=== PATIENT | male | born 1980 | race Two or more races ===

== ENCOUNTER 2020-04-14 15:12 | Emergency (ER) | payer OTHER, SELFPAY ==
[2020-04-14 15:27] VITALS: BP 119/93; PULSE 99; RESP 18; TEMP 36.2; O2SAT 97; BMI 26.6
[2020-04-14 15:32] VITALS: BP 119/93; PULSE 99; RESP 18; TEMP 36.2; O2SAT 97
--- NOTE | 2020-04-14 16:22 | ED.PSYCH ---
HPI - Psych General Chief Complaint: Psychiatric Symptoms Stated Complaint: crisis Time Seen by Provider: 04/14/20 16:18 Source: patient Mode of arrival: EMS Limitations: no limitations History of Present Illness HPI Narrative: patient comes to the emergency room complaining suicidal and homicidal ideation. Patient states that his family is panting drugs in his room. Patient states he used heroin and cocaine yesterday. MD complaint: suicidal ideation and feels depressed Related Data Home Medications Medication Instructions Recorded Confirmed bupropion HCl 300 mg 24 hr tablet, 300 mg PO DAILY 04/06/20 extended release clonidine HCl 0.1 mg tablet 0.1 mg PO TID 04/06/20 gabapentin 300 mg capsule mg PO 04/06/20 mirtazapine 45 mg tablet 45 mg PO BEDTIME 04/06/20 olanzapine 5 mg tablet 5 mg PO BID 04/06/20 Allergies Allergy/AdvReac Type Severity Reaction Status Date / Time codeine [Codeine] Allergy Unknown N/A Unverified 03/10/20 16:08 Review of Systems Review of Systems: Constitutional : No Weight loss, No Fever, No Chills, No Night Sweats, No Fatigue, No Malaise ENT/Mouth : No Hearing loss, No Ear Pain, No Nasal Congestion, No Sinus Pain, No Hoarseness, No sore throat, No Rhinorrhea, No Swallowing Difficulty Eyes: No Eye Pain, No Swelling, No Redness, No Foreign Body, No Discharge, No Vision Changes Cardiovascular : No Chest Pain, No SOB, No Dyspnea on Exertion, No Orthopnea, No Edema, No Palpitations Respiratory : No Cough, No Sputum, No Wheezing, No Smoke Exposure, No Dyspnea Gastrointestinal : No Nausea, No Vomiting, No Diarrhea, No Constipation, No abdominal Pain, No Hematochezia, No Melena Genitourinary : no irregular bleeding, No Dysuria, No Urinary Frequency, No Hematuria, No Urinary Incontinence, No Urgency, No Flank Pain, No Urinary Flow Changes, No Hesitancy Musculoskeletal : No joint pain, No Myalgias, No Joint Swelling Skin : No Skin Lesions, No rash Neuro : No Weakness, No Numbness, No Paresthesias, No Loss of Consciousness, No Dizziness, No Headache Psych : N Complaining of worsening depression, suicidal ideation, homicidal ideation, nonspecific but mention his family Heme/Lymph: No Bruising, No Bleeding,No Lymphadenopathy Endocrine : No Polyuria, No Polydipsia, No Temperature Intolerance [facility] Past Medical History Surgical History No pertinent past surgical history Family History Family History Father No problems noted. Mother No problems noted. Social History Social History Alcohol intake: unknown Smoking Status: Current every day smoker Smoked in Last 30 Days: Yes Use of substances other than those prescribed or required for medical reasons: Yes Substance Use Type: Crack/Cocaine and Opiates Substance Use Frequency: Daily Last Used Substance: Hours (ago) Any prior treatment program specific to substance use: No Advance Directives: No Advance Directives Information Provided: No Physical Exam Vital Signs: Vital Signs: Vital Signs Temp Pulse Resp BP Pulse Ox 04/14/20 15:32 97.1 F 99 18 119/93 H 97 04/14/20 15:27 97.1 F 99 18 119/93 H 97 Body Mass Index 26.6 Appearance: Alert. Oriented X3. No acute distress. somnolent but easily arousable, chino answering yes no questions, short sentences Eyes: Pupils equal, round and reactive to light. ENT: Pharynx normal. Neck: Normal inspection. Neck supple. No lymph nodes noted. No crepitus CVS: Normal heart rate and rhythm. Pulses normal. Normal S1 and S2 Respiratory: No respiratory distress. Breath sounds normal. No Wheezing. No rales Abdomen: Soft and nontender. No rigidity. No distention. good BS x4 Skin: Skin warm and dry. Normal skin color. Normal skin turgor. Extremities: No lower extremity edema. No lower extremity edema. No Lacerations. No Rash Neuro: Oriented X 3. No motor deficit. No sensory deficit. Moving all extermities. No slurred speech. Course Course Course Narrative: patient has been refusing to give any urine yet, UA pending. Sign-out given to Dr. Davis [facility] - Psych Restraints Face to Face Assessment: Face to Face Assessment: Current Situation: After assessment of the patient, a review of the pertinent medical record and a discussion with nursing staff, I feel the patient requires a restrain intervention. Reaction To: [] Medical Condition: [] Behavioral State: [] Continued Need: [] Discharge Plan Discharge Clinical Impression: Suicidal ideation, Active substance abuse Prescriptions: No Action gabapentin 300 mg capsule PO RF: 0 bupropion HCl 300 mg tablet extended release 24 hr 300 mg PO DAILY RF: 0 mirtazapine 45 mg tablet 45 mg PO BEDTIME RF: 0 olanzapine 5 mg tablet 5 mg PO BID RF: 0 clonidine HCl 0.1 mg tablet 0.1 mg PO TID RF: 0
--- NOTE | 2020-04-14 17:03 | PC.NURSE ---
HAZEL faxed and called, verified with Francesca
--- NOTE | 2020-04-14 19:17 | PC.NURSE ---
Report received. PT is resting in bed. Calm and cooperative. No other complaints.
[2020-04-14] MEDS: LORazepam 1 MG TABLET 2 MG PO (20:22)
[2020-04-14 21:52] VITALS: BP 131/86; PULSE 87; RESP 16; TEMP 36.1; O2SAT 95
--- NOTE | 2020-04-14 22:01 | PC.NURSE ---
PT is sleeping in bed. Breathing is even and unlabored. Received 2 mg of Ativan PO for agitation at 2021.
--- NOTE | 2020-04-14 23:51 | PC.NURSE ---
PT is resting in bed. Calm and cooperative. No other complaints.
[2020-04-14 23:57] VITALS: RESP 17
--- NOTE | 2020-04-15 01:47 | PC.NURSE ---
PT refused to speak with N.
[2020-04-15 06:46] VITALS: BP 132/83; PULSE 77; RESP 18; TEMP 36.7; O2SAT 97
--- NOTE | 2020-04-15 07:03 | PC.NURSE ---
pt awake, asking this rn for urine cup. awaiting bhn reeval this morning, refused to speak w clinician at 0200 this morning.
[2020-04-15 07:27] LABS: Glucose Urine UA NEG (NEG); Leukocyte Esterase Urine NEG (NEG); Nitrite Urine NEG (NEG); Urine Blood NEG (NEG); Urine Ketones 5 MG/DL (NEG); Urine Protein NEG (NEG-TRACE)
[2020-04-15 07:28] LABS: Appearance Urine HAZY; Color Urine YELLOW
[2020-04-15 07:55] LABS: Amphetamine Screen Urine Not Detected (Not Detect); Barbiturates, Urine Not Detected (Not Detect); Benzodiazepines Screen Urine Not Detected (Not Detect); Cannabinoid Screen Urine Not Detected (Not Detect); Cocaine Screen Urine POSITIVE (Not Detect); Opiate Screen Urine POSITIVE (Not Detect); Phencyclidine Screen Urine Not Detected (Not Detect)
--- NOTE | 2020-04-15 08:56 | PC.NURSE ---
pt hardly cooperative for vitals, minimally repositioning to accomodate bp cuff. large amount of trash removed from floor of pt room, pt educated about risk for ants in bh pod from littered food on floor
[2020-04-15 09:11] VITALS: BP 124/75; PULSE 79; RESP 16; TEMP 37.1
--- NOTE | 2020-04-15 10:11 | MHC.CARE ---
Dionisio declined SI/HI plan, stated I just want to rest this is why I called 911. Dionisio refused to continue with assessment and requested to let him sleep. He is provided with information regards were he is able to stay overnight since he is homeless.
--- NOTE | 2020-04-15 11:23 | PC.NURSE ---
pt screaming at staff, refusing to be discharged, calling bhn and this rn fucking liars, i never spoke to a doctor, im not leaving . removed by security, offered dc paperwork and slapping papers out of this rn hands.
== END 2020-04-15 11:04 | disposition left against medical advice (07) ==
PROVIDERS: Emergency Provider Emergency Medicine
DX: F33.1 Major depressive disorder, recurrent, moderate (principal); R45.851 Suicidal ideations; R45.850 Homicidal ideations; F17.200 Nicotine dependence, unspecified, uncomplicated; F11.90 Opioid use, unspecified, uncomplicated; F14.90 Cocaine use, unspecified, uncomplicated; Z71.6 Tobacco abuse counseling; Z79.899 Other long term (current) drug therapy
CPT/HCPCS: 80307; 81003; 99285

== ENCOUNTER 2020-04-15 11:41 | Emergency (ER) | payer OTHER, SELFPAY ==
[2020-04-15 11:49] VITALS: BP 111/70; PULSE 88; RESP 18; TEMP 36.8; O2SAT 97; BMI 35.6
--- NOTE | 2020-04-15 12:52 | ED.PSYCH ---
HPI - Psych General Chief Complaint: Psychiatric Symptoms Stated Complaint: CRISIS Time Seen by Provider: 04/15/20 12:51 Source: patient Mode of arrival: ambulatory Limitations: no limitations History of Present Illness HPI Narrative: Dionisio Jean is a 39-year-old male who speaks full initial he is a known to this facility through his past visits here for psychiatric reasons he has a history of psychotic depression, chronic opiate dependence on methadone and continues to use heroin/cocaine who also reports he has history of anxiety, PTSD and from the review chart he has had admission here and May 13 as well as prior to that in 03/20/2019 for depression/suicidal ideation who was seen here earlier in the day for suicidal ideations subsequently evaluated crisis team and cleared for discharge he returns complaining of feeling suicidal and depressed states he has a lot of family stressors and they are doing him dirty he does not express any specific plan related to his suicidality. He states that he last use heroin and cocaine couple of days ago. He has no medical complaints this time. States he feels suicidal. MD complaint: suicidal ideation and feels depressed Onset (ago): day(s) Duration: constant History of same: Yes Relieving factors: none Exacerbating factors: drug use and other ( Family stressors) Associated psychiatric symptoms: depression and suicidal ideation Associated symptoms: denies other symptoms If self harm: admits thoughts of self harm Details of plan: No plan expressed Related Data Home Medications Medication Instructions Recorded Confirmed bupropion HCl 300 mg 24 hr tablet, 300 mg PO DAILY 04/06/20 extended release clonidine HCl 0.1 mg tablet 0.1 mg PO TID 04/06/20 gabapentin 300 mg capsule mg PO 04/06/20 mirtazapine 45 mg tablet 45 mg PO BEDTIME 04/06/20 olanzapine 5 mg tablet 5 mg PO BID 04/06/20 methadone 40 mg PO DAILY 04/15/20 04/15/20 Allergies Allergy/AdvReac Type Severity Reaction Status Date / Time codeine [Codeine] Allergy Unknown N/A Unverified 03/10/20 16:08 Review of Systems Review of Systems: Constitutional: No Weight loss, No Fever, No Chills, No Night Sweats, No Fatigue, No Malaise ENT/Mouth: No Hearing loss, No Ear Pain, No Nasal Congestion, No Sinus Pain, No Hoarseness, No sore throat, No Rhinorrhea, No Swallowing Difficulty Eyes: No Eye Pain, No Swelling, No Redness, No Foreign Body, No Discharge, No Vision Changes Cardiovascular: No Chest Pain, No SOB, No Dyspnea on Exertion, No Orthopnea, No Edema, No Palpitations Respiratory: No Cough, No Sputum, No Wheezing, No Dyspnea Gastrointestinal: No Nausea, No Vomiting, No Diarrhea, No Constipation, No abdominal Pain, No Hematochezia, No Melena Genitourinary: no irregular bleeding, No Dysuria, No Urinary Frequency, No Hematuria, No Urinary Incontinence, No Urgency, No Flank Pain, No Urinary Flow Changes, No Hesitancy Musculoskeletal: No joint pain, No Myalgias, No Joint Swelling Skin: No Skin Lesions, No rash Neuro: No Weakness, No Numbness, No Paresthesias, No Loss of Consciousness, No Dizziness, No Headache Psych: As noted in HPI Heme/Lymph: No Bruising, No Bleeding,No Lymphadenopathy Endocrine: No Polyuria, No Polydipsia, No Temperature Intolerance Yes all other systems are reviewed and are negative [facility] Past Medical History Attestation statement: The following information was validated with the patient. Medical History (Updated 04/15/20 @ 21:16 by Vasyl Corbett NP) Active substance abuse Depression Surgical History No pertinent past surgical history Family History Family History Father No problems noted. Mother No problems noted. Social History Social History Alcohol intake: current Smoking Status: Smoker, status unknown Use of substances other than those prescribed or required for medical reasons: Yes Substance Use Type: Crack/Cocaine and Opiates Advance Directives: No Advance Directives Information Provided: Yes Physical Exam Vital Signs: Vital Signs: Vital Signs Temp Pulse Resp BP Pulse Ox 04/15/20 20:47 97.5 F 80 18 126/71 100 04/15/20 18:24 97.5 F 82 18 144/76 H 98 04/15/20 17:42 70 16 04/15/20 15:14 70 18 04/15/20 11:49 98.2 F 88 18 111/70 97 Body Mass Index 35.6 reviewed Const: General: cooperative and healthy appearing; No acute distress or intoxicated appearing Nutritional Appearance: average body habitus Orientation/consciousness: patient oriented x3 HENMT: Head: Yes normal to inspection Ears: hearing grossly normal bilaterally Eyes: General: appearance normal, both eyes and all related structures Visual Li: normal visual li by confrontation Neck: Neck: Yes normal visual inspection and No tender Thyroid: Thyroid normal Chest: Chest palpation & inspection: normal inspection of the chest Resp: Effort & Inspection: normal respiratory effort Cardio: Jugular venous distension: no JVD Rate: regular rate Rhythm: regular rhythm GI: Inspection: Yes normal to inspection Percussion: Yes normal to percussion Auscultation: normal bowel sounds : General: Yes no CVA tenderness Back/Spine/Pelvis: Back: no CVA tenderness Skin: General skin exam: no rashes or lesions noted Neuro: General: patient oriented x3 Extrem: General: Yes normal to inspection Course Course Course Narrative: 1250 patient was seen last evening for similar presentation with depression / suicidal ideation. Had AU tox that was positive for cocaine and opiate which he is misusing several days ago. No signs or symptoms of intoxication / withdrawal. Offers no medical complaints. I have already consulted care team who will come down to evaluate the patient. Reevaluation(s) Reevaluation #1: 1305 Evaluate the care team at this time given his history and now express suicidality and a plan to the care team of running into traffic recommendation for inpatient level care. Bed search initiated. This time we will go ahead and get medical screening labs and bed search initiated. Section 12 is signed. Time: 21:16 Reevaluation #2: case discussed with shiv and Anita davidson sign out pending bed placement. Has been resting comfortably. No acute distress. Did eat dinner. Section 12/bed search in progress MDM - Psych Restraints Face to Face Assessment: Face to Face Assessment: Current Situation: After assessment of the patient, a review of the pertinent medical record and a discussion with nursing staff, I feel the patient requires a restrain intervention. Reaction To: [] Medical Condition: [] Behavioral State: [] Continued Need: [] Lab Data Result diagrams: 04/15/20 13:45 04/15/20 13:45 Labs: Lab Results 04/15/20 04/15/20 Range/Units 13:45 13:45 WBC 4.4 L (4.8-10.8) X10*3/uL RBC 4.22 L (4.60-5.80) X10*6/uL Hgb 12.1 L (14.0-18.0) g/dl Hct 36.4 L (42-52) % MCV 86.3 (80-98) fL MCH 28.7 (27.0-33.0) pg MCHC 33.2 (31.0-36.0) g/dl RDW 13.2 (11.0-16.0) % Plt Count 153 L (160-400) X10*3/uL MPV 11.3 (9.4-12.4) fL Immature Gran % (Auto) 0.2 (0.0-0.4) % Neut % (Auto) 58.1 (45-73) % Lymph % (Auto) 32.2 (20-40) % Cherry % (Auto) 6.8 (2-11) % Eos % (Auto) 2.5 (0-4) % Baso % (Auto) 0.2 (0-2) % Lymph # (Auto) 1.4 (1.2-4.9) X10*3/uL Cherry # (Auto) 0.3 (0.1-1.2) X10*3/uL Eos # (Auto) 0.1 (0.0-0.4) X10*3/uL Baso # (Auto) 0.0 (0.0-0.2) X10*3/uL Abs Immat Gran (auto) 0.01 (0.00-0.03) X10*3/uL Absolute Neuts (auto) 2.6 (2.0-8.3) X10*3/uL Absolute Nucleated RBC 0.000 (0.0-0.012) X10*3/uL Nucleated RBC % (auto) 0.0 (0.0-0.2) /100WBC Sodium 140 (135-145) mmol/L Potassium 3.9 (3.3-5.1) mmol/l Chloride 104 (96-108) mmol/L Carbon Dioxide 27 (22-29) mmol/L Anion Gap 13 (12-20) BUN 5 L (9-16) mg/dL Creatinine 0.63 (0.5-1.4) mg/dL Estim Creat Clear Calc 217.9 Estimated GFR > 60 Random Glucose 112 (60-115) mg/dL Calcium 8.4 (8.4-10.2) mg/dL Total Bilirubin 0.2 (0.0-1.0) mg/dL AST 34 (5-37) U/L ALT 20 (0-40) U/L Alkaline Phosphatase 94 (39-117) U/L Total Protein 6.7 (6.5-8.0) g/dL Albumin 3.5 (3.5-5.0) g/dL Discharge Plan Discharge Clinical Impression: Active substance abuse Depression Qualifiers: Depression Type: unspecified Qualified Code(s): F32.9 - Major depressive disorder, single episode, unspecified Prescriptions: No Action methadone 10 mg/mL Concentrate 40 mg PO DAILY RF: 0 gabapentin 300 mg capsule PO RF: 0 bupropion HCl 300 mg tablet extended release 24 hr 300 mg PO DAILY RF: 0 mirtazapine 45 mg tablet 45 mg PO BEDTIME RF: 0 olanzapine 5 mg tablet 5 mg PO BID RF: 0 clonidine HCl 0.1 mg tablet 0.1 mg PO TID RF: 0
[2020-04-15 13:50] LABS: MANUAL DIFF FLAG NO
[2020-04-15 13:53] LABS: Basophils Percent Auto 0.2 % (0-2); Eosinophils Absolute Auto 0.1 X10*3/uL (0.0-0.4); Eosinophils Percent Auto 2.5 % (0-4); Hematocrit 36.4 % (42-52); Hemoglobin 12.1 g/dl (14.0-18.0); Imm Gran Abs Auto 0.01 X10*3/uL (0.00-0.03); Imm Gran Pct Auto 0.2 % (0.0-0.4); Lymphocytes Absolute Auto 1.4 X10*3/uL (1.2-4.9); Lymphocytes Percent Auto 32.2 % (20-40); Mean Corpuscular HGB Conc 33.2 g/dl (31.0-36.0); Mean Corpuscular Hemoglobin 28.7 pg (27.0-33.0); Mean Corpuscular Volume 86.3 fL (80-98); Mean Platelet Volume 11.3 fL (9.4-12.4); Monocytes Absolute Auto 0.3 X10*3/uL (0.1-1.2); Monocytes Percent Auto 6.8 % (2-11); Neutrophils Absolute Auto 2.6 X10*3/uL (2.0-8.3); Neutrophils Percent Auto 58.1 % (45-73); Platelet Count 153 X10*3/uL (160-400); Red Blood Count 4.22 X10*6/uL (4.60-5.80); Red Cell Distribution Width 13.2 % (11.0-16.0); White Blood Count 4.4 X10*3/uL (4.8-10.8)
[2020-04-15 14:22] LABS: Alanine Aminotransferase 20 U/L (0-40); Albumin Level 3.5 g/dL (3.5-5.0); Alkaline Phosphatase 94 U/L (39-117); Anion Gap 13 (12-20); Aspartate Amino Transferase 34 U/L (5-37); Bilirubin Total 0.2 mg/dL (0.0-1.0); Blood Urea Nitrogen 5 mg/dL (9-16); Calcium 8.4 mg/dL (8.4-10.2); Carbon Dioxide 27 mmol/L (22-29); Chloride 104 mmol/L (96-108); Creatinine Clr Calc Pharmacy 217.9; Estimated Glomerular Filt Rate > 60; Glucose Random 112 mg/dL (60-115); Potassium 3.9 mmol/l (3.3-5.1); Sodium 140 mmol/L (135-145); Total Protein 6.7 g/dL (6.5-8.0)
[2020-04-15 15:14] VITALS: PULSE 70; RESP 18
--- NOTE | 2020-04-15 15:15 | PC.NURSE ---
PATIENT SEEN BY CARE TEAM HERE. WILL BE BED SEARCH, PATIENT STATES HE WANTS TO WALK INTO TRAFFIC .
[2020-04-15 17:42] VITALS: PULSE 70; RESP 16
--- NOTE | 2020-04-15 17:42 | PC.NURSE ---
methadone dose verified, paper in chart. paper then faxed to pharmacy, who received fax.
--- NOTE | 2020-04-15 18:18 | MHC.CARE ---
CARE Team referred pt to [facility] and [facility] for inpatient psychiatric admission. CARE Team follows up with both of these units, and they no longer have availability. CARE Team will continue bedsearch.
[2020-04-15 18:24] VITALS: BP 144/76; PULSE 82; RESP 18; TEMP 36.4; O2SAT 98
--- NOTE | 2020-04-15 18:47 | PC.NURSE ---
pt report taken from jasmeet villa rn. pt sleeping at this time. pts methadone verieif by lizeth asif. plan for inpatient bed search seen by care team section 12. sitter present at bedside. pt in nad.
--- NOTE | 2020-04-15 20:00 | PC.NURSE ---
pt to bathroom in pod with mom for shower. charisma lawrence aware and all staff in pod aware
[2020-04-15 20:47] VITALS: BP 126/71; PULSE 80; RESP 18; TEMP 36.4; O2SAT 100
--- NOTE | 2020-04-15 21:54 | PC.NURSE ---
[facility]. accepted for tomorrow morning. needs rapid covid 138 bed 2.
--- NOTE | 2020-04-15 22:34 | PC.NURSE ---
PT COVID SWABBED
--- NOTE | 2020-04-15 22:56 | MHC.CARE ---
CARE team completed state-wide bedsearch. Bedsearch was exhausted for this evening. CARE team received call from [facility] [phone] with acceptance for tomorrow morning. Patient will be going to room 138-[address] Gurrola. Acceptance is pending negative COVID results which CARE team will fax to [facility] at [phone] when available.
--- NOTE | 2020-04-15 23:00 | MHC.CARE ---
The following contains insurance information: CARE team obtained authorization from patient's insurance company live by phone from [employer]. Auth# [id number] for 5 days starting 04/16/2020 with LCD 04/20/2020.
--- NOTE | 2020-04-15 23:31 | PC.NURSE ---
Patient resting comfortably at this time aware of plan of care to be transferred to inpatient in am.
[2020-04-15 23:47] LABS: SARS COV2 PCR INHOUSE NEGATIVE (Negative)
--- NOTE | 2020-04-16 01:21 | MHC.CARE ---
CARE Team sends covid results and authorization info to [facility].
[2020-04-16 01:45] VITALS: BP 116/63; PULSE 72; RESP 18; TEMP 36.3; O2SAT 98
[2020-04-16 04:11] VITALS: BP 118/73; PULSE 73; RESP 18; TEMP 36.9; O2SAT 95
[2020-04-16 05:50] VITALS: BP 124/75; PULSE 79; RESP 16; TEMP 36.6; O2SAT 99
--- NOTE | 2020-04-16 06:14 | PC.NURSE ---
[facility] [phone] to give nurse to nurse at 11am and to discuss discharge time.
--- NOTE | 2020-04-16 06:44 | PC.NURSE ---
patient rested comfortably throughtout night aware of plan of care to be transferred to psych at [facility] [phone]
[2020-04-16 11:09] VITALS: BP 122/76; PULSE 88; O2SAT 98
== END 2020-04-16 15:12 ==
PROVIDERS: Nurse Practitioner Family; Nurse Practitioner Primary Care; Emergency Provider Emergency Medicine
DX: F32.9 Major depressive disorder, single episode, unspecified (principal); R45.851 Suicidal ideations; F11.20 Opioid dependence, uncomplicated; Z20.828 Contact with and (suspected) exposure to other viral communicable diseases; F14.90 Cocaine use, unspecified, uncomplicated; Z79.899 Other long term (current) drug therapy
CPT/HCPCS: 36415; 80053; 85025; 87635; 99285

== ENCOUNTER 2020-06-14 10:15 | Outpatient (REF) | payer OTHER, SELFPAY ==
[2020-06-14 12:13] LABS: Alanine Aminotransferase 17 U/L (0-40); Albumin Level 4.1 g/dL (3.5-5.0); Alkaline Phosphatase 68 U/L (39-117); Anion Gap 10 (12-20); Aspartate Amino Transferase 15 U/L (5-37); Bilirubin Total 0.2 mg/dL (0.0-1.0); Blood Urea Nitrogen 12 mg/dL (9-16); Calcium 8.9 mg/dL (8.4-10.2); Carbon Dioxide 33 mmol/L (22-29); Chloride 102 mmol/L (96-108); Cholesterol 231 mg/dL; Estimated Glomerular Filt Rate > 60; Glucose Fasting 88 mg/dL (60-99); HDL Cholesterol 45 mg/dL; LDL Cholesterol Calculated 148 mg/dl; Potassium 4.4 mmol/l (3.3-5.1); Sodium 141 mmol/L (135-145); Total Protein 7.6 g/dL (6.5-8.0); Triglycerides 191 mg/dL
[2020-06-14 12:24] LABS: Estimated Average Glucose 111 mg/dL; Hemoglobin A1c % 5.5 %
[2020-06-14 12:36] LABS: TSH reflex Free T4 2.01 mIU/mL (0.32-4.0)
[2020-06-15 07:46] LABS: Syphilis Screen Nonreactive (Nonreactive)
[2020-06-15 09:20] LABS: HBsAGNum1 0.19 S/CO (0.00-0.99); Hepatitis B Surface Antigen Negative (Negative); ~HepC Num1 14.92 S/CO (0.00-0.79); ~Hepatitis C Antibody Reactive (Nonreactive)
[2020-06-15 09:32] LABS: HBS Num1 > 1000.00 mIU/mL (0-7.99); HBc Num1 0.37 S/CO (0.00-0.79); HIV AB/AG Nonreactive (Nonreactive); Hepatitis B Core Antibody Nonreactive (Nonreactive); ~Hepatitis B Surface Antibody REACTIVE (Nonreactive)
== END 2020-06-14 10:16 | disposition home or self-care (01) ==
LOC: HO.LAB 10:15
PROVIDERS: PCP Physician Assistant; Visit Provider Physician Assistant
DX: Z13.1 Encounter for screening for diabetes mellitus (principal); Z11.3 Encounter for screening for infections with a predominantly sexual mode of transmission; E66.09 Other obesity due to excess calories; Z68.38 Body mass index [BMI] 38.0-38.9, adult; Z87.898 Personal history of other specified conditions
CPT/HCPCS: 80053; 80061; 83036; 84443; 86704; 86706; 86780; 86803; 87340; 87389

== ENCOUNTER 2020-08-18 12:47 | Emergency (ER) | payer OTHER, SELFPAY ==
--- NOTE | ~2020-08-18 | XR_ITS ---
EXAMINATION: XR CHEST CLINICAL INFORMATION: Possible aspiration COMPARISON: None TECHNIQUE: Portable upright AP view of the chest was obtained. FINDINGS: The lungs are clear and there is no airspace consolidation or groundglass opacity or effusion. No pneumothorax or pleural reaction. The heart is normal in size. The vascularity is normal. The hilar and mediastinal contours are normal. There is hardware bridging old left midclavicular fracture. There is a healed left posterior fourth rib fracture. No acute bony abnormality. XR/XR chest 1V IMPRESSION: Unremarkable examination.
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
[2020-08-18 13:00] VITALS: BP 141/84; PULSE 96; RESP 18; TEMP 36.2; O2SAT 95; BMI 31.1
[2020-08-18 14:02] LABS: MANUAL DIFF FLAG NO
[2020-08-18 14:05] LABS: Basophils Percent Auto 0.2 % (0-2); Eosinophils Absolute Auto 0.1 X10*3/uL (0.0-0.4); Eosinophils Percent Auto 1.5 % (0-4); Hemoglobin 13.7 g/dl (14.0-18.0); Imm Gran Abs Auto 0.01 X10*3/uL (0.00-0.03); Imm Gran Pct Auto 0.2 % (0.0-0.4); Lymphocytes Absolute Auto 1.3 X10*3/uL (1.2-4.9); Lymphocytes Percent Auto 25.7 % (20-40); Mean Corpuscular HGB Conc 32.6 g/dl (31.0-36.0); Mean Corpuscular Hemoglobin 28.9 pg (27.0-33.0); Mean Corpuscular Volume 88.6 fL (80-98); Mean Platelet Volume 10.4 fL (9.4-12.4); Monocytes Absolute Auto 0.4 X10*3/uL (0.1-1.2); Monocytes Percent Auto 7.3 % (2-11); Neutrophils Absolute Auto 3.4 X10*3/uL (2.0-8.3); Neutrophils Percent Auto 65.1 % (45-73); Platelet Count 184 X10*3/uL (160-400); Red Blood Count 4.74 X10*6/uL (4.60-5.80); Red Cell Distribution Width 15.9 % (11.0-16.0); White Blood Count 5.2 X10*3/uL (4.8-10.8)
[2020-08-18 14:18] LABS: COVID-19 Test Negative (Negative)
[2020-08-18 14:34] LABS: Ethanol < 10 mg/dL
[2020-08-18 14:38] LABS: Alanine Aminotransferase 164 U/L (0-40); Albumin Level 4.2 g/dL (3.5-5.0); Alkaline Phosphatase 82 U/L (39-117); Anion Gap 14 (12-20); Aspartate Amino Transferase 99 U/L (5-37); Bilirubin Direct 0.2 mg/dL (0.0-0.5); Bilirubin Total 0.6 mg/dL (0.0-1.0); Blood Urea Nitrogen 14 mg/dL (9-16); Calcium 9.2 mg/dL (8.4-10.2); Carbon Dioxide 32 mmol/L (22-29); Chloride 100 mmol/L (96-108); Creatinine Clr Calc Pharmacy 160.3; Estimated Glomerular Filt Rate > 60; Glucose Random 111 mg/dL (60-115); Magnesium 2.2 mg/dL (1.6-2.6); Potassium 3.7 mmol/L (3.3-5.1); Sodium 142 mmol/L (135-145); Total Protein 7.5 g/dL (6.5-8.0)
[2020-08-18 16:24] VITALS: BP 149/81; PULSE 103; RESP 18; TEMP 36.1; O2SAT 97
--- NOTE | 2020-08-18 17:30 | PC.NURSE ---
Called and faxed to N
[2020-08-18 18:07] VITALS: BP 157/92; PULSE 98; RESP 18; TEMP 36.6; O2SAT 98
--- NOTE | 2020-08-18 19:54 | PC.NURSE ---
SLEEPING ON STRETCHER. BREATHING EVEN, NON-LABORED. NO APPARENT DISTRESS. SITTER MAINTAINED FOR SAFETY.
[2020-08-18 21:05] VITALS: BP 151/98; PULSE 93; RESP 18; TEMP 36.6; O2SAT 98
[2020-08-18 22:14] VITALS: BP 122/62; PULSE 82; RESP 15; TEMP 36.4; O2SAT 92
[2020-08-18 22:59] LABS: Glucose Urine UA NEG (NEG); Leukocyte Esterase Urine NEG (NEG); Nitrite Urine NEG (NEG); Urine Blood NEG (NEG); Urine Ketones NEG (NEG); Urine Protein TRACE MG/DL (NEG-TRACE)
[2020-08-18 23:08] LABS: Appearance Urine CLEAR; Color Urine DARK YELLOW
[2020-08-18 23:20] LABS: Amphetamine Screen Urine Not Detected (Not Detect); Barbiturates, Urine Not Detected (Not Detect); Benzodiazepines Screen Urine Not Detected (Not Detect); Cannabinoid Screen Urine Not Detected (Not Detect); Cocaine Screen Urine POSITIVE (Not Detect); Opiate Screen Urine POSITIVE (Not Detect); Phencyclidine Screen Urine Not Detected (Not Detect)
[2020-08-18] MEDS: Mirtazapine 15 MG TABLET 45 MG PO (23:27)
[2020-08-18] MEDS: OLANZapine 5 MG TABLET PO (23:27)
[2020-08-18 23:28] VITALS: BP 122/62; PULSE 82
[2020-08-18] MEDS: buPROPion HCl XL 300 MG TAB.ER.24H PO (23:28)
[2020-08-18] MEDS: cloNIDine HCL 0.1 MG TABLET PO (23:28)
[2020-08-18] MEDS: QUEtiapine Fumarate 50 MG TABLET PO (23:28)
[2020-08-18] MEDS: Gabapentin 400 MG CAPSULE PO (23:28)
[2020-08-19] VITALS (8 sets, daily range): BP systolic 117–142; BP diastolic 56–84; PULSE 72–98; RESP 16–18; TEMP 36.6; O2SAT 93–97
--- NOTE | 2020-08-19 07:48 | PC.NURSE ---
report taken from ese lawrence pt sleeping in stretcher, awaiting to be seen by n. alert to verbal stimuli, sitting up eating breakfast, ambulated to bathroom w steady gait. wcsavannah.
[2020-08-19] MEDS: OLANZapine 5 MG TABLET PO (10:11)
[2020-08-19] MEDS: Gabapentin 400 MG CAPSULE PO ×2 (10:11→14:52)
[2020-08-19] MEDS: cloNIDine HCL 0.1 MG TABLET PO ×2 (10:11→14:52)
[2020-08-19] MEDS: buPROPion HCl XL 300 MG TAB.ER.24H PO (10:12)
--- NOTE | 2020-08-19 10:38 | PC.NURSE ---
this rn spoke jennifer harry at [facility], methadone dose confirmed. faxed to pharmacy.
--- NOTE | 2020-08-19 23:02 | PC.NURSE ---
Patient continues to sleep at this time. Respirations even/unlabored, sitter remains. This RN did not wake patient to medicate. Plan to medicate when patient wakes up.
[2020-08-20] VITALS (12 sets, daily range): BP systolic 114–128; BP diastolic 57–79; PULSE 76–86; RESP 14–18; TEMP 35.6–36.6; O2SAT 94–100
[2020-08-20] MEDS: Mirtazapine 15 MG TABLET 45 MG PO ×2 (01:41→20:58)
[2020-08-20] MEDS: Gabapentin 400 MG CAPSULE PO ×4 (01:41→20:58)
[2020-08-20] MEDS: cloNIDine HCL 0.1 MG TABLET PO ×4 (01:41→20:55)
[2020-08-20] MEDS: OLANZapine 5 MG TABLET PO ×3 (01:41→20:58)
[2020-08-20] MEDS: QUEtiapine Fumarate 50 MG TABLET PO ×2 (01:42→20:58)
--- NOTE | 2020-08-20 01:42 | PC.NURSE ---
Patient woke up, is calm/cooperative/pleasant at this time. Offered and accepted medications. Medicated with medications that are usually given at 21:00. Pt refused hospital socks, but given warm blanket. Sitter remains present.
[2020-08-20] MEDS: buPROPion HCl XL 300 MG TAB.ER.24H PO (09:55)
--- NOTE | 2020-08-20 12:52 | PC.NURSE ---
pt has been resting calmly on kulkarni bed since this RN arrival at 11am. sitter has been nearby. lunch now at bedside. pt requesting am methadone and pharmacy aware of need to bring it. bedsearch continues.
--- NOTE | 2020-08-20 16:47 | PC.NURSE ---
moved to a hospital bed but remains in hallway
--- NOTE | 2020-08-20 19:29 | MHC.CARE ---
Bedsearch note: No inpatient psychiatric beds available today. Assessment faxed to [facility] to review for possible admission on Saturday or Saturday. ph: [phone] fax: [phone] MSU completed, pt continues to meet LOC for inpt psychiatric placement.
--- NOTE | 2020-08-20 21:02 | PC.NURSE ---
Pt sleeping, wakes easily to voice. Pt medicated with 2100 medications, denies pain/discomfort. Pt refusing to wear a mask while in the kulkarni at this time. Pt states Even while I am sleeping? I'll suffocate!! VSS. Sitter at bedside.
[2020-08-21] VITALS (10 sets, daily range): BP systolic 122–135; BP diastolic 62–82; PULSE 80–83; RESP 16–18; TEMP 36–36.5; O2SAT 95–96
--- NOTE | 2020-08-21 07:25 | PC.NURSE ---
REPORT TAKEN FROM GISEL SCHAFFER. PATIENT RESTING IN BED. ATE BREAKFAST. PATIENT CALM. WAITING FOR PLACEMENT. STAFF ABLE TO VIEW PATIENT AT ALL TIMES.
[2020-08-21] MEDS: cloNIDine HCL 0.1 MG TABLET PO ×3 (09:13→22:00)
[2020-08-21] MEDS: Gabapentin 400 MG CAPSULE PO ×3 (09:13→22:00)
[2020-08-21] MEDS: buPROPion HCl XL 300 MG TAB.ER.24H PO (09:13)
[2020-08-21] MEDS: OLANZapine 5 MG TABLET PO ×2 (09:13→22:00)
--- NOTE | 2020-08-21 12:31 | MHC.CARE ---
CARE Team spoke with [facility] marie called and needed to fill out one documents needed for clinical, spoke with Faisal from [facility].
[2020-08-21] MEDS: Mirtazapine 15 MG TABLET 45 MG PO (22:00)
[2020-08-21] MEDS: QUEtiapine Fumarate 50 MG TABLET PO (22:00)
[2020-08-22 07:49] VITALS: BP 112/66; PULSE 83; RESP 18; O2SAT 95
--- NOTE | 2020-08-22 07:50 | PC.NURSE ---
Pt is alert, rr even, speaks in full sentences, skis pwdi, and he is in nad. States he is still having si, and that if given the opportunity he would jump off a bridge.
[2020-08-22] MEDS: buPROPion HCl XL 300 MG TAB.ER.24H PO (08:12)
[2020-08-22] MEDS: cloNIDine HCL 0.1 MG TABLET PO ×3 (08:12→21:26)
[2020-08-22] MEDS: Gabapentin 400 MG CAPSULE PO ×3 (08:12→21:25)
[2020-08-22] MEDS: OLANZapine 5 MG TABLET PO ×2 (08:12→21:24)
--- NOTE | 2020-08-22 09:49 | PC.NURSE ---
Report received. PT ambulated to pod with steady gait, pt denies complaints.
--- NOTE | 2020-08-22 09:50 | PC.NURSE ---
Pt transported to the behavioral pod. Report given to KARIME Proctor.
[2020-08-22 15:15] VITALS: BP 128/82; PULSE 85; RESP 16; TEMP 36.9; O2SAT 95
[2020-08-22 15:26] VITALS: BP 128/82; PULSE 85
[2020-08-22 16:48] VITALS: BP 117/63; PULSE 79; RESP 16; TEMP 37.1; O2SAT 95
--- NOTE | 2020-08-22 19:16 | PC.NURSE ---
Report received. PT is sleeping in the room. Respirations are even and unlabored. PT is inpatient bed search.
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
[2020-08-22] MEDS: Mirtazapine 15 MG TABLET 45 MG PO (21:25)
[2020-08-22 21:26] VITALS: BP 121/73; PULSE 82
[2020-08-22] MEDS: QUEtiapine Fumarate 50 MG TABLET PO (21:26)
--- NOTE | 2020-08-22 22:14 | MHC.CARE ---
Spoke with Giselle from [facility] who authorized Inpatient level of care. She is requesting we f/u with facilities to determine what the barriers are to placement considering there are pt?s that had been boarding prior to him and have been placed and pt has been boarding since . She requested we call tomorrow with that information and start looking into lower levels of care ?because he is taking his medications and needs tx and is not acute for facilities to not take him?.
[2020-08-23] VITALS (8 sets, daily range): BP systolic 101–136; BP diastolic 50–76; PULSE 79–90; RESP 16–18; TEMP 36.2–36.9; O2SAT 95–97
--- NOTE | 2020-08-23 01:30 | PC.NURSE ---
Addendum entered by Hitesh Mackey 08/23/20 14:10: time entered was incorrect, nurse to nurse completed at 1330 Original Note: Nurse to nurse completed with Kelly from [facility] . she said she would follow up with their intake department and call us back.
[2020-08-23] MEDS: Magnesium Hydrox/Alum Hydrox 30 ML ORAL.SUSP PO (05:30)
--- NOTE | 2020-08-23 07:05 | PC.NURSE ---
Report received. PT currently sleeping, respirations even and unlabored, in no apparent distress. PT is inpatient bedsearch.
[2020-08-23] MEDS: Gabapentin 400 MG CAPSULE PO ×3 (09:34→21:02)
[2020-08-23] MEDS: OLANZapine 5 MG TABLET PO ×2 (09:34→21:05)
[2020-08-23] MEDS: cloNIDine HCL 0.1 MG TABLET PO ×3 (09:34→21:05)
[2020-08-23] MEDS: buPROPion HCl XL 300 MG TAB.ER.24H PO (09:34)
[2020-08-23 14:22] LABS: COVID-19 Test Negative (Negative); IDNOW Serial# 9DD0AD1C
--- NOTE | 2020-08-23 15:07 | MHC.CARE ---
Patient has been accepted at [facility] in [place]. Insurance authorization in progress.
--- NOTE | 2020-08-23 17:36 | MHC.CARE ---
Addendum entered by Rebeka Ayala LCSW 08/23/20 18:44: Departure and admission time delayed due to ambulance unable to schedule a excelsior picker for transport until 08/24/30 at 12pm. Accepting facility is aware, admission rescheduled for 1pm. Original Note: [facility], however an ambulance was unable to be scheduled until an hour after the requested arrival time for facility admission. Admission has been rescheduled for 8AM on 08/24/20 and request for ambulance has been rescheduled for the morning. [facility] insurance contacted re: changing authorization start date. Pt and ED provider updated.
--- NOTE | 2020-08-23 20:05 | PC.NURSE ---
Report received. PT is sleeping in bed. Respirations even and unlabored. PT is inpatient bed search.
[2020-08-23] MEDS: QUEtiapine Fumarate 50 MG TABLET PO (21:04)
[2020-08-23] MEDS: Mirtazapine 15 MG TABLET 45 MG PO (21:04)
[2020-08-24 08:30] VITALS: BP 123/62; PULSE 84; RESP 16; O2SAT 95
[2020-08-24 09:30] VITALS: PULSE 79
[2020-08-24] MEDS: Gabapentin 400 MG CAPSULE PO (09:30)
[2020-08-24] MEDS: cloNIDine HCL 0.1 MG TABLET PO (09:30)
[2020-08-24] MEDS: OLANZapine 5 MG TABLET PO (09:30)
[2020-08-24] MEDS: buPROPion HCl XL 300 MG TAB.ER.24H PO (09:31)
--- NOTE | 2020-08-24 09:47 | MHC.CARE ---
Authorization 3 days 08/24/20-08/27/20 [id number] Loretta Patel Call to [facility], spoke to Damaris, expecting patient at 1300
== END 2020-08-24 11:57 ==
PROVIDERS: Nurse Practitioner Family; Physician Assistant; Emergency Provider Emergency Medicine; PCP Physician Assistant
DX: F33.1 Major depressive disorder, recurrent, moderate (principal); R45.851 Suicidal ideations; R07.9 Chest pain, unspecified; F11.10 Opioid abuse, uncomplicated; F14.10 Cocaine abuse, uncomplicated; Z87.891 Personal history of nicotine dependence; Z20.822 Contact with and (suspected) exposure to COVID-19; Z79.899 Other long term (current) drug therapy
CPT/HCPCS: 36415; 71045; 80048; 80076; 80307; 80320; 81003; 83735; 85025; 87635; 99285

== ENCOUNTER 2020-10-24 11:18 | Outpatient (REF) | payer OTHER, SELFPAY ==
[2020-10-24 13:07] LABS: Alanine Aminotransferase 135 U/L (0-40); Albumin Level 4.3 g/dL (3.5-5.0); Alkaline Phosphatase 84 U/L (39-117); Aspartate Amino Transferase 70 U/L (5-37); Bilirubin Direct < 0.2 mg/dL (0.0-0.5); Bilirubin Total 0.4 mg/dL (0.0-1.0); Total Protein 7.6 g/dL (6.5-8.0)
[2020-10-26 14:17] LABS: HCV RNA PCR Qn 225000 IU/mL (NOT DETECTED); HCV RNA PCR Qn 5.35 Log IU/mL (NOT DETECTED)
[2020-11-02 16:02] LABS: HCV Genotype LiPA 2
== END 2020-10-24 11:19 | disposition home or self-care (01) ==
LOC: HO.LAB 11:18
PROVIDERS: PCP Physician Assistant; Visit Provider Physician Assistant
DX: R76.8 Other specified abnormal immunological findings in serum (principal)
CPT/HCPCS: 36415; 80076; 87902

== ENCOUNTER 2020-11-23 02:36 | Inpatient (IN) | payer OTHER, SELFPAY ==
[2020-11-23] VITALS (8 sets, daily range): BP systolic 105–135; BP diastolic 56–96; PULSE 62–100; RESP 14–18; TEMP 36.4–36.6; O2SAT 92–97; BMI 35.9
[2020-11-23 04:05] LABS: COVID-19 Test Negative (Negative); IDNOW Serial# 9DD0AD1C
--- NOTE | 2020-11-23 04:05 | ED.PSYCH ---
HPI - Psych General Chief Complaint: Psychiatric Symptoms Stated Complaint: depressed Time Seen by Provider: 11/23/20 03:55 Source: patient Mode of arrival: ambulatory Limitations: no limitations History of Present Illness HPI Narrative: Patient comes emergency room complaining of worsening depression and anxiety. Patient states that he is depressed, states that he does not know where his children are, they were on foster care. Patient also states that he was recovering from drug abuse. Patient was doing well taking his medications. Then patient started using drugs again, got kicked out of the house where he was staying, continue using drugs, discontinue using his prescribed medications. Patient states that he wants to kill himself by shooting himself or jumping from a bridge. Patient states that he does not want to live anymore. Patient denies homicidal ideation MD complaint: suicidal ideation and feels depressed Related Data Home Medications Medication Instructions Recorded Confirmed bupropion HCl 300 mg 24 hr tablet, 300 mg PO QAM 07/04/20 11/23/20 extended release clonidine HCl 1 tab PO TID 11/23/20 11/23/20 docusate sodium [Stool Softener] 1 cap PO BID 11/23/20 11/23/20 doxepin 1 cap PO BEDTIME 11/23/20 11/23/20 gabapentin 1 cap PO TID 11/23/20 11/23/20 hydroxyzine pamoate 1 cap PO TID 11/23/20 11/23/20 ibuprofen 1 tab PO TID 11/23/20 11/23/20 melatonin 1 tab PO BEDTIME 11/23/20 11/23/20 mirtazapine 1 tab PO BEDTIME 11/23/20 11/23/20 olanzapine 1 tab PO BEDTIME 11/23/20 11/23/20 quetiapine 1 tab PO BEDTIME 11/23/20 11/23/20 Previous Rx's Medication Instructions Recorded nicotine (polacrilex) 2 mg gum 2 mg BUCCAL Q2H PRN 14 Days #100 ea 10/26/20 Allergies Allergy/AdvReac Type Severity Reaction Status Date / Time codeine [Codeine] Allergy Unknown N/A Verified 05/31/20 15:01 Review of Systems Review of Systems: Constitutional : No Weight loss, No Fever, No Chills, No Night Sweats, No Fatigue, No Malaise ENT/Mouth : No Hearing loss, No Ear Pain, No Nasal Congestion, No Sinus Pain, No Hoarseness, No sore throat, No Rhinorrhea, No Swallowing Difficulty Eyes: No Eye Pain, No Swelling, No Redness, No Foreign Body, No Discharge, No Vision Changes Cardiovascular : No Chest Pain, No SOB, No Dyspnea on Exertion, No Orthopnea, No Edema, No Palpitations Respiratory : No Cough, No Sputum, No Wheezing, No Smoke Exposure, No Dyspnea Gastrointestinal : No Nausea, No Vomiting, No Diarrhea, No Constipation, No abdominal Pain, No Hematochezia, No Melena Genitourinary : no irregular bleeding, No Dysuria, No Urinary Frequency, No Hematuria, No Urinary Incontinence, No Urgency, No Flank Pain, No Urinary Flow Changes, No Hesitancy Musculoskeletal : No joint pain, No Myalgias, No Joint Swelling Skin : No Skin Lesions, No rash Neuro : No Weakness, No Numbness, No Paresthesias, No Loss of Consciousness, No Dizziness, No Headache Psych : Complaining of worsening anxiety and depression, suicidal ideation, no homicidal ideation, complaining of drug abuse Heme/Lymph: No Bruising, No Bleeding,No Lymphadenopathy Endocrine : No Polyuria, No Polydipsia, No Temperature Intolerance PMFSH Past Medical History Medical History Active substance abuse Depression Injury of left clavicle Surgical History No pertinent past surgical history Family History Family History Father No problems noted. Mother No problems noted. Social History Social History Alcohol intake: current Alcohol intake frequency: a few times a week Substance Use Type: Crack/Cocaine and Heroin Advance Directives: No Advance Directives Information Provided: No Physical Exam Vital Signs: Vital Signs: Last Vital Signs Temp 97.8 F 11/23/20 03:39 Pulse 89 11/23/20 03:39 Resp 18 11/23/20 03:39 BP 135/96 H 11/23/20 03:39 Pulse Ox 96 11/23/20 03:39 Body Mass Index 35.9 Appearance: Alert. Oriented X3. . Eyes: Pupils equal, round and reactive to light. ENT: Pharynx normal. Neck: Normal inspection. Neck supple. No lymph nodes noted. No crepitus CVS: Normal heart rate and rhythm. Pulses normal. Normal S1 and S2 Respiratory: No respiratory distress. Breath sounds normal. No Wheezing. No rales Abdomen: Soft and nontender. No rigidity. No distention. good BS x4 Skin: Skin warm and dry. Normal skin color. Normal skin turgor. Extremities: No lower extremity edema. No lower extremity edema. No Lacerations. No Rash Neuro: Oriented X 3. No motor deficit. No sensory deficit. Moving all extermities. No slurred speech. Psych: Normal speech, crying Course Course Course Narrative: Urinalysis and U tox pending, [facility] pending. Patient is under Section 12 now. Discharge Plan Discharge Clinical Impression: Depression, Suicidal ideation Prescriptions: No Action bupropion HCl 300 mg tablet extended release 24 hr 300 mg PO QAM RF: 0 nicotine (polacrilex) 2 mg gum 2 mg buccal Q2H PRN (Reason: nicotine cravings) 14 Days Qty: 100 RF: 0 ibuprofen 800 mg tablet 1 tab PO TID RF: 0 gabapentin 400 mg capsule 1 cap PO TID RF: 0 hydroxyzine pamoate 50 mg capsule 1 cap PO TID RF: 0 melatonin 3 mg tablet 1 tab PO BEDTIME RF: 0 docusate sodium [Stool Softener] 100 mg capsule 1 cap PO BID RF: 0 mirtazapine 45 mg tablet 1 tab PO BEDTIME RF: 0 olanzapine 15 mg tablet 1 tab PO BEDTIME RF: 0 doxepin 50 mg capsule 1 cap PO BEDTIME RF: 0 clonidine HCl 0.1 mg tablet 1 tab PO TID RF: 0 quetiapine 50 mg tablet 1 tab PO BEDTIME RF: 0
--- NOTE | 2020-11-23 04:28 | PC.NURSE ---
Provider met with patient, section 12 and ordered [facility] consult, referral sent to [facility] via smart-sheet, copy of referral receipt in patient's chart, patient in his room, snaccking and watching TV, will continue to monitor
[2020-11-23 05:08] LABS: Glucose Urine UA NEG (NEG); Leukocyte Esterase Urine NEG (NEG); Nitrite Urine NEG (NEG); Specific Gravity - Urine <= 1.005 (1.005-1.025); Urine Blood NEG (NEG); Urine Ketones NEG (NEG); Urine Protein NEG (NEG-TRACE)
[2020-11-23 05:12] LABS: Appearance Urine CLEAR; Color Urine YELLOW
[2020-11-23 05:17] LABS: Bacteria Urine 1+ /LPF; Squamous Epithelial Cell Urine 1+ /LPF
[2020-11-23 05:28] LABS: Amphetamine Screen Urine Not Detected (Not Detect); Barbiturates, Urine Not Detected (Not Detect); Benzodiazepines Screen Urine Not Detected (Not Detect); Cannabinoid Screen Urine Not Detected (Not Detect); Cocaine Screen Urine POSITIVE (Not Detect); Opiate Screen Urine POSITIVE (Not Detect); Phencyclidine Screen Urine Not Detected (Not Detect)
--- NOTE | 2020-11-23 06:56 | PC.NURSE ---
patient appears to be asleep at present breathing with even unlabored respirations patient appears in no distress
[2020-11-23] MEDS: cloNIDine HCL 0.1 MG TABLET PO ×3 (09:10→23:32)
[2020-11-23] MEDS: Gabapentin 400 MG CAPSULE PO ×3 (09:11→23:32)
[2020-11-23] MEDS: Ibuprofen 800 MG TABLET PO ×3 (09:11→23:29)
[2020-11-23] MEDS: hydrOXYzine HCL 50 MG TABLET PO ×3 (09:11→23:29)
--- NOTE | 2020-11-23 13:21 | MHC.RECOVRN ---
T/w met with pt in [facility] after pod nurse stated pt is interested in restarting methadone. Pt reports using heroin, 3 bundles daily, IV, as well as 1/2 gram cocaine, IV, daily x 1 month. Pt reports a period of recovery x 1 year prior to this. Pt reports having been on methadone through [facility], 40 mg, last dosed early October. Pt believes it has been less than 30 days since last dose, t/w along with pt called to verify. Message was left for nursing. Pt not currently experiencing withdrawal symptoms. Pt encouraged to inform RN if symptoms begin. Case discussed with Nancy Lawler APRN. Awaiting call back from [facility]. Will continue to follow.
--- NOTE | 2020-11-23 15:33 | PC.NURSE ---
spoke to shorty [place] in regards to [facility] where client was maintained on 40mg methadone recently. shorty attmepted to contact them.
--- NOTE | 2020-11-23 20:47 | MHC.CARE ---
[facility] unable to provide a clinician to evaluate pt. CARE team has began assessment process, disposition and plan of care pending.
--- NOTE | 2020-11-23 21:22 | PC.NURSE ---
pt sound asleep, pt fell asleep eating a sandwhich.
[2020-11-23] MEDS: QUEtiapine Fumarate 50 MG TABLET PO (23:29)
[2020-11-23] MEDS: Docusate Sodium 100 MG CAPSULE PO (23:29)
[2020-11-23] MEDS: Melatonin 3 MG TABLET PO (23:35)
[2020-11-23] MEDS: OLANZapine 7.5 MG TABLET 15 MG PO (23:36)
[2020-11-23] MEDS: Mirtazapine 15 MG TABLET 45 MG PO (23:36)
[2020-11-24] VITALS (9 sets, daily range): BP systolic 109–136; BP diastolic 58–84; PULSE 18–86; RESP 16–20; TEMP 36.2–37; O2SAT 97–98
[2020-11-24] MEDS: Doxepin HCl 25 MG CAPSULE 50 MG PO ×2 (00:06→22:51)
--- NOTE | 2020-11-24 07:08 | PC.NURSE ---
Report from Jeanette SCHAFFER. Pt appears to be sleeping at this time. Section 12 bedsearch continues.
--- NOTE | 2020-11-24 08:12 | ECG_ITS ---
Test Reason : MED CLEARANCE Blood Pressure : / mmHG Vent. Rate : 064 BPM Atrial Rate : 064 BPM P-R Int : 156 ms QRS Dur : 086 ms QT Int : 432 ms P-R-T Axes : 028 025 002 degrees QTc Int : 445 ms Normal sinus rhythm Nonspecific ST and T wave abnormality Abnormal ECG When compared with ECG of 14-MAY-2019 07:54, No significant change was found Referred By: Karoline Woo Electronically Signed By:Yaron Freitas
[2020-11-24] MEDS: Gabapentin 400 MG CAPSULE PO ×3 (09:28→22:52)
[2020-11-24] MEDS: hydrOXYzine HCL 50 MG TABLET PO ×3 (09:28→22:51)
[2020-11-24] MEDS: Docusate Sodium 100 MG CAPSULE PO ×2 (09:28→22:51)
[2020-11-24] MEDS: Ibuprofen 800 MG TABLET PO ×3 (09:29→22:52)
[2020-11-24] MEDS: buPROPion HCl XL 300 MG TAB.ER.24H PO (09:29)
[2020-11-24] MEDS: cloNIDine HCL 0.1 MG TABLET PO ×3 (09:30→22:51)
--- NOTE | 2020-11-24 09:35 | MHC.RECOVRN ---
T/w met with pt to f/u regarding methadone. Second message left with [facility], no response. Pt not currently experiencing any withdrawal symptoms. Pt encouraged to notify RN if symptoms begin. Will continue to follow.
--- NOTE | 2020-11-24 10:00 | PC.NURSE ---
Nurse to nurse given to Guy SCHAFFER.
[2020-11-24 10:25] LABS: MANUAL DIFF FLAG NO
[2020-11-24 10:30] LABS: Basophils Percent Auto 0.3 % (0-2); Eosinophils Absolute Auto 0.1 X10*3/uL (0.0-0.4); Hematocrit 41.8 % (42-52); Hemoglobin 13.5 g/dl (14.0-18.0); Imm Gran Abs Auto 0.01 X10*3/uL (0.00-0.03); Imm Gran Pct Auto 0.3 % (0.0-0.4); Lymphocytes Percent Auto 49.3 % (20-40); Mean Corpuscular HGB Conc 32.3 g/dl (31.0-36.0); Mean Corpuscular Hemoglobin 27.9 pg (27.0-33.0); Mean Corpuscular Volume 86.4 fL (80-98); Monocytes Absolute Auto 0.3 X10*3/uL (0.1-1.2); Neutrophils Absolute Auto 1.6 X10*3/uL (2.0-8.3); Neutrophils Percent Auto 39.1 % (45-73); Platelet Count 179 X10*3/uL (160-400); Red Blood Count 4.84 X10*6/uL (4.60-5.80); Red Cell Distribution Width 14.2 % (11.0-16.0)
[2020-11-24 10:53] LABS: Alanine Aminotransferase 114 U/L (0-40); Albumin Level 3.4 g/dL (3.5-5.0); Alkaline Phosphatase 88 U/L (39-117); Anion Gap 9 (12-20); Aspartate Amino Transferase 48 U/L (5-37); Bilirubin Total 0.3 mg/dL (0.0-1.0); Blood Urea Nitrogen 11 mg/dL (9-16); Calcium 9.1 mg/dL (8.4-10.2); Carbon Dioxide 34 mmol/L (22-29); Chloride 104 mmol/L (96-108); Creatinine Clr Calc Pharmacy 166.1; Estimated Glomerular Filt Rate > 60; Glucose Random 106 mg/dL (60-115); Magnesium 1.8 mg/dL (1.6-2.6); Potassium 3.7 mmol/L (3.3-5.1); Sodium 143 mmol/L (135-145); Total Protein 6.3 g/dL (6.5-8.0)
--- NOTE | 2020-11-24 12:05 | PC.ADMIT ---
Pt admitted at 11:15 from [facility] ED on conditional voluntary. 15 Minute checks initiated. PT admitted for Major Depressive disorder, Opiate Use D/O severe, Cocaine Use D/O severe after self-presented to the emergency department for active thoughts of SI with a plan to shoot himself or jump off of a bridge. Per crisis eval, PT suicidality is secondary to relapse one month ago triggered by thoughts of his childhood and his children in foster care. PT had been in recovery for 1 year and medication compliant prior to his relapse one month ago. PT utox positive for cocaine and opiates. During admission PT continues to endorse SI, denies HI, AH, VH. PT minimally participated, stated he is just tired and will be more willing to engage in conversation after he sleeps. PT oriented to the unit, provided snacks and beverage per his request.
[2020-11-24] MEDS: Mirtazapine 15 MG TABLET 45 MG PO (22:51)
[2020-11-24] MEDS: QUEtiapine Fumarate 50 MG TABLET PO (22:51)
[2020-11-24] MEDS: Melatonin 3 MG TABLET PO (22:52)
[2020-11-25 06:00] VITALS: BP 126/83; PULSE 76; RESP 20; O2SAT 93
[2020-11-25 07:22] LABS: Cholesterol 160 mg/dL; HDL Cholesterol 31 mg/dL; LDL Cholesterol Calculated 109 mg/dl; Triglycerides 104 mg/dL
[2020-11-25 07:32] LABS: Free T4 (Free Thyroxine) 0.96 ng/dL (0.71-1.85)
[2020-11-25 07:35] LABS: Estimated Average Glucose 105 mg/dL; Hemoglobin A1c % 5.3 %
[2020-11-25 08:33] LABS: Folate 8.7 ng/mL (> or = 4.0); Vitamin B12 698 pg/mL (200-900)
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
[2020-11-25] MEDS: buPROPion HCl XL 300 MG TAB.ER.24H PO (09:26)
[2020-11-25] MEDS: Docusate Sodium 100 MG CAPSULE PO ×2 (09:26→21:29)
[2020-11-25] MEDS: Ibuprofen 800 MG TABLET PO ×3 (09:26→21:29)
[2020-11-25 09:27] VITALS: BP 172/115; PULSE 85
[2020-11-25] MEDS: cloNIDine HCL 0.1 MG TABLET PO ×3 (09:27→21:30)
[2020-11-25] MEDS: Gabapentin 400 MG CAPSULE PO ×3 (09:28→21:29)
[2020-11-25] MEDS: hydrOXYzine HCL 50 MG TABLET PO ×3 (09:29→21:29)
[2020-11-25] MEDS: QUEtiapine Fumarate 50 MG TABLET PO ×2 (09:30→21:29)
--- NOTE | 2020-11-25 13:00 | MHC.RECOVRN ---
T/w met with pt after pt reported withdrawal symptoms to RN. Pt reports nausea, chills, decreased appetite, has observable moistness on face. Pt would like to begin methadone. COWS score 8. Case discussed with and referred to Nancy Lawler APRN.
[2020-11-25 14:23] LABS: Troponin-I High Sensitivity < 3.5 ng/L (<3.5-35.0)
[2020-11-25 15:35] VITALS: BP 144/77; BP 144/91; PULSE 75; RESP 20; TEMP 36.4
--- NOTE | 2020-11-25 16:23 | HO.ADDICT_ITS ---
History of Present Illness Date of Service: 11/25/2020 Chief Complaint: SI Reason for Consult: OUD Requesting physician: Toma Beyer Discussed with referring provider: Yes Sources of Information: patient interviewed HPI Narrative: Patient is a 39 year old male with OUD currently psychiatrically admitted. Consult requested as patient is reporting withdrawal sx and requesting to start MOUD Patient seen in room 319. Awake, alert laying in bed, curled up under blankets. He reports he is having chills, body aches, nausea, anxiety and restlessness. Reports that he has been using about 30 bags of heroin QD. Reports history of MOUD with methadone and stated that at that time a therapeutic dose for him was 40mg QD. Denies any cardiac history Hepatitis C with VL Past Psychiatric History: current psychiatric admission Medical Evaluation Reviewed: Yes Review of Systems Constitutional: Reports as per HPI Diagnostics Vital Signs (24Hr): Vital Signs - 24 hr 11/24/20 18:00 11/24/20 22:51 11/25/20 06:00 Temperature 98.6 F Pulse Rate 86 79 76 Respiratory Rate 18 20 Blood Pressure 128/61 133/68 126/83 Pulse Oximetry 97 93 11/25/20 09:27 11/25/20 15:35 Temperature 97.6 F Pulse Rate 85 75 Respiratory Rate 20 Blood Pressure 172/115 H 144/77 H Pulse Oximetry Body Mass Index 35.9 Labs Results: 11/24/20 10:19 11/24/20 10:19 Labs: Laboratory Results - last 48 hr 11/24/20 11/24/20 11/25/20 10:19 10:19 06:26 WBC 4.0 L RBC 4.84 Hgb 13.5 L Hct 41.8 L MCV 86.4 MCH 27.9 MCHC 32.3 RDW 14.2 Plt Count 179 MPV 11.0 Immature Gran % (Auto) 0.3 Neut % (Auto) 39.1 L Lymph % (Auto) 49.3 H [place] % (Auto) 8.0 Eos % (Auto) 3.0 Baso % (Auto) 0.3 Lymph # (Auto) 2.0 [place] # (Auto) 0.3 Eos # (Auto) 0.1 Baso # (Auto) 0.0 Abs Immat Gran (auto) 0.01 Absolute Neuts (auto) 1.6 L Absolute Nucleated RBC 0.000 Nucleated RBC % (auto) 0.0 Sodium 143 Potassium 3.7 Chloride 104 Carbon Dioxide 34 H Anion Gap 9 L BUN 11 Creatinine 0.76 Estim Creat Clear Calc 166.1 Estimated GFR > 60 Random Glucose 106 Estimat Average Glucose 105 Hemoglobin A1c % 5.3 Calcium 9.1 Magnesium 1.8 Total Bilirubin 0.3 AST 48 H ALT 114 H Alkaline Phosphatase 88 Troponin I High Sens Total Protein 6.3 L Albumin 3.4 L D Triglycerides Cholesterol LDL Cholesterol, Calc HDL Cholesterol Vitamin B12 Folate TSH Free T4 11/25/20 11/25/20 11/25/20 06:26 06:26 06:26 WBC RBC Hgb Hct MCV MCH MCHC RDW Plt Count MPV Immature Gran % (Auto) Neut % (Auto) Lymph % (Auto) [place] % (Auto) Eos % (Auto) Baso % (Auto) Lymph # (Auto) [place] # (Auto) Eos # (Auto) Baso # (Auto) Abs Immat Gran (auto) Absolute Neuts (auto) Absolute Nucleated RBC Nucleated RBC % (auto) Sodium Potassium Chloride Carbon Dioxide Anion Gap BUN Creatinine Estim Creat Clear Calc Estimated GFR Random Glucose Estimat Average Glucose Hemoglobin A1c % Calcium Magnesium Total Bilirubin AST ALT Alkaline Phosphatase Troponin I High Sens < 3.5 Total Protein Albumin Triglycerides 104 Cholesterol 160 D LDL Cholesterol, Calc 109 HDL Cholesterol 31 D Vitamin B12 698 Folate 8.7 TSH 0.60 Free T4 0.96 Mental Status Exam Mental Status Exam Patient Appearance: Appropriate Patient Orientation: Person, Place, Time and Situation Level of Consciousness: Awake and Alert Patient Behavior: Appropriate Mood Description: Anxious Affect Description: Anxious Ability to Follow Directions: Excellent Speech Pattern: Clear Thought Process: Goal Oriented Thought Content: positive for Goal Oriented Judgement: Fair Medications Medications Current Medications Generic Name Dose Route Start Last Admin Trade Name Freq PRN Reason Stop Dose Admin Acetaminophen 650 mg 11/24/20 10:09 Acetaminophen 325 Mg Tablet PO Q6H PRN Headache/Pain Mild Scale (1-3) Al Hydroxide/Mg Hydroxide 30 ml 11/24/20 10:09 Magnesium Hydrox/Alum Hydrox 30 Ml Oral.Susp PO Q6H PRN Heartburn/Nausea Baclofen 10 mg 11/24/20 14:13 Baclofen 10 Mg Tablet PO BID PRN muscle spasms Bupropion HCl 300 mg 11/23/20 09:00 06/04/21 09:26 Bupropion Hcl Xl 300 Mg Tab.Er.24h PO 300 mg DAILY [facility] Administration Clonidine HCl 0.1 mg 11/23/20 09:00 11/25/20 15:35 Clonidine Hcl 0.1 Mg Tablet PO 0.1 mg TID [facility] Administration Protocol Docusate Sodium 100 mg 11/23/20 09:00 11/25/20 09:26 Docusate Sodium 100 Mg Capsule PO 100 mg BID [facility] Administration Doxepin HCl 50 mg 11/23/20 21:00 11/24/20 22:51 Doxepin Hcl 25 Mg Capsule PO 50 mg BEDTIME [facility] Administration Gabapentin 400 mg 11/23/20 09:00 11/25/20 15:39 Gabapentin 400 Mg Capsule PO 400 mg TID [facility] Administration Hydroxyzine HCl 50 mg 11/23/20 09:00 11/25/20 15:35 Hydroxyzine Hcl 50 Mg Tablet PO 50 mg TID [facility] Administration Hydroxyzine HCl 25 mg 11/24/20 10:09 Hydroxyzine Hcl 25 Mg Tablet PO BEDTIME PRN Anxiety Ibuprofen 800 mg 11/23/20 09:00 11/25/20 15:35 Ibuprofen 800 Mg Tablet PO 800 mg TID [facility] Administration Loperamide HCl 2 mg 11/24/20 14:13 Loperamide Hcl 2 Mg Capsule PO Q4H PRN Loose Stool Magnesium Hydroxide 30 ml 11/24/20 10:09 Milk Of Magnesia 30 Ml Oral.Susp PO DAILY PRN Constipation Melatonin 3 mg 11/23/20 21:00 11/24/20 22:52 Melatonin 3 Mg Tablet PO 3 mg BEDTIME [facility] Administration Mirtazapine 45 mg 11/23/20 21:00 11/24/20 22:51 Mirtazapine 15 Mg Tablet PO 45 mg BEDTIME [facility] Administration Nicotine Polacrilex 2 mg 11/23/20 08:16 Nicotine Polacrilex 2 Mg Gum BUCCAL Q2H PRN nicotine cravings Ondansetron HCl 4 mg 11/25/20 09:46 Ondansetron Odt 4 Mg Tab.Rapdis TRANSLINGU Q6H PRN Vomiting Quetiapine Fumarate 50 mg 11/23/20 21:00 11/24/20 22:51 Quetiapine Fumarate 50 Mg Tablet PO 50 mg BEDTIME [facility] Administration Quetiapine Fumarate 50 mg 11/24/20 14:15 11/25/20 09:30 Quetiapine Fumarate 50 Mg Tablet PO 50 mg Q6H PRN Administration agitation Trazodone HCl 50 mg 11/24/20 10:09 Trazodone Hcl 50 Mg Tablet PO BEDTIME PRN Insomnia Allergies Allergies Allergy/AdvReac Type Severity Reaction Status Date / Time codeine [Codeine] Allergy Unknown N/A Verified 05/31/20 15:01 Assessment & Plan Assessment & Plan (1) Opioid use disorder: Status: Acute Code(s): F11.99 - Opioid use, unspecified with unspecified opioid-induced disorder Recommendations: * COWS score 11 when seen by this technical proposal writer * Methadone 20mg ordered to start * plan to re-eval and titrate dose as appropriate * Additional 5-10mg may given this evening if withdrawal sx persist * AM dose should be total dose of methadone administered today. Greater than 50% of the session was spent on counseling and/or coordination of care PMFSH Past Medical History Medical History Active substance abuse Depression Injury of left clavicle Family History Family History Father No problems noted. Mother No problems noted. Surgical History Surgical History No pertinent past surgical history Social History Social History Household Members: Spouse Housing: Other Housing Other:: [facility] in [place] Do you presently have visiting nurse or other home services: No Alcohol intake: unknown Patient Tobacco Use Status: Current everyday Tobacco user Tobacco use type: Cigarette Cigarette Packs Per Day: 1 Cigarettes Per Day: 20.0 Smoked in Last 30 Days: Yes Patient Interested in Nicotine Replacement: Yes (states he would like gum) Patient Given Instructions on How to Stop Smoking: No (pt declined) Use of substances other than those prescribed or required for medical reasons: Yes Substance Use Type: Crack/Cocaine and Heroin Substance Use Frequency: Daily Last Used Substance: Days (ago) Currently Displaying Signs/Symptoms of Drug Intoxication Withdrawal: No Have you been hit, kicked, punched, or otherwise hurt by someone within the past year? If so, by whom?: No Do you feel safe in your current relationship?: Yes Is there a partner from a previous relationship who is making you feel unsafe now?: No Are you made to feel afraid or neglected: No Spiritual Healthcare Practices: n/a Adventist Healthcare Practices: n/a Cultural Healthcare Practices: n/a Advance Directives: No Advance Directives Information Provided: No Guardian: No Do you have thoughts of harming others: None Do you have a plan to hurt others: No Plan Recently lost weight without trying: No Nutrition Risks: No Nutritional Risk Poor oral hygiene: No service: No Sexual orientation: Straight/Heterosexual
[2020-11-25 18:00] VITALS: BP 120/78; PULSE 82; RESP 20; O2SAT 98
[2020-11-25] MEDS: Baclofen 10 MG TABLET PO (21:29)
[2020-11-25] MEDS: Doxepin HCl 25 MG CAPSULE 50 MG PO (21:29)
[2020-11-25 21:30] VITALS: BP 121/80; PULSE 82
[2020-11-25] MEDS: Melatonin 3 MG TABLET PO (21:30)
[2020-11-25] MEDS: Mirtazapine 15 MG TABLET 45 MG PO (21:30)
[2020-11-26 03:45] VITALS: BP 110/72; PULSE 78
[2020-11-26] MEDS: cloNIDine HCL 0.1 MG TABLET PO ×3 (03:45→20:32)
[2020-11-26 06:00] VITALS: BP 121/68; PULSE 74; RESP 18; O2SAT 93
[2020-11-26] MEDS: hydrOXYzine HCL 50 MG TABLET PO ×3 (10:12→20:34)
[2020-11-26] MEDS: Docusate Sodium 100 MG CAPSULE PO ×2 (10:12→20:32)
[2020-11-26] MEDS: Gabapentin 400 MG CAPSULE PO ×3 (10:12→20:33)
[2020-11-26 10:13] VITALS: BP 121/68; PULSE 74
[2020-11-26] MEDS: buPROPion HCl XL 300 MG TAB.ER.24H PO (10:13)
[2020-11-26] MEDS: Ibuprofen 800 MG TABLET PO ×3 (10:14→20:33)
[2020-11-26 20:05] VITALS: BP 126/89; PULSE 100; RESP 20; O2SAT 95
[2020-11-26 20:32] VITALS: BP 126/89; PULSE 100
[2020-11-26] MEDS: OLANZapine 5 MG TABLET PO (20:32)
[2020-11-26] MEDS: Doxepin HCl 25 MG CAPSULE 50 MG PO (20:32)
[2020-11-26] MEDS: Melatonin 3 MG TABLET PO (20:33)
[2020-11-26] MEDS: Mirtazapine 15 MG TABLET 45 MG PO (20:33)
--- NOTE | 2020-11-26 21:37 | P.PNPSI_ITS ---
Subjective Subjective Date of Service: 11/26/20 Reason For Visit: SI Subjective Notes: Conditional Voluntary Healthcare Proxy: No Guardianship: No Medical Problems Affecting Mental Status: No Interim History: Dionisio initiated Methadone with Nancy Bucky RECEIVING SUPERVISOR on 11/25. Today Nancy would like pt to have 30 mg a.m. and if needed 5 mg hs which was implemented. Pt with discomfort but working with his team on care and treatment. Medication Compliance: Yes Side effects from medications: No Attending Groups: Yes Review of Systems Reports behavioral changes Psychiatric: Reports anxiety, Reports behavioral changes, Reports change in appetite, Reports depression, Reports irritability and Reports mood swings Mental Status Exam Mental Status Exam Patient Appearance: Appropriate Patient Orientation: Person, Place, Time and Situation Level of Consciousness: Alert Patient Behavior: Appropriate, Talkative and Cooperative Mood Description: Depressed Affect Description: Flat Patient Cognition Impaired: No Ability to Follow Directions: Good Speech Pattern: Spontaneous Speech Memory Description: Intact Hallucinations: None Delusions: Not Present Thought Process: Intact Thought Content: positive for Intact Depressive Symptoms: Increased Anxiety Judgement: Fair Diagnostics Vital Signs (24Hr): Vital Signs - 24 hr 11/26/20 03:45 11/26/20 06:00 11/26/20 10:13 Pulse Rate 78 74 74 Respiratory Rate 18 Blood Pressure 110/72 121/68 121/68 Pulse Oximetry 93 11/26/20 20:05 11/26/20 20:32 Pulse Rate 100 100 Respiratory Rate 20 Blood Pressure 126/89 126/89 Pulse Oximetry 95 Body Mass Index 35.9 Labs Results: 11/24/20 10:19 11/24/20 10:19 Labs: Laboratory Results - last 48 hr 11/25/20 11/25/20 11/25/20 06:26 06:26 06:26 Estimat Average Glucose 105 Hemoglobin A1c % 5.3 Troponin I High Sens Triglycerides 104 Cholesterol 160 D LDL Cholesterol, Calc 109 HDL Cholesterol 31 D Vitamin B12 698 Folate 8.7 TSH 0.60 Free T4 0.96 11/25/20 06:26 Estimat Average Glucose Hemoglobin A1c % Troponin I High Sens < 3.5 Triglycerides Cholesterol LDL Cholesterol, Calc HDL Cholesterol Vitamin B12 Folate TSH Free T4 Medications Medications Current Medications Generic Name Dose Route Start Last Admin Trade Name Freq PRN Reason Stop Dose Admin Acetaminophen 650 mg 11/24/20 10:09 Acetaminophen 325 Mg Tablet PO Q6H PRN Headache/Pain Mild Scale (1-3) Al Hydroxide/Mg Hydroxide 30 ml 11/24/20 10:09 Magnesium Hydrox/Alum Hydrox 30 Ml Oral.Susp PO Q6H PRN Heartburn/Nausea Baclofen 10 mg 11/24/20 14:13 11/25/20 21:29 Baclofen 10 Mg Tablet PO 10 mg BID PRN Administration muscle spasms Bupropion HCl 300 mg 11/23/20 09:00 11/26/20 10:13 Bupropion Hcl Xl 300 Mg Tab.Er.24h PO 300 mg DAILY [facility] Administration Clonidine HCl 0.1 mg 11/23/20 09:00 11/26/20 20:32 Clonidine Hcl 0.1 Mg Tablet PO 0.1 mg TID [facility] Administration Protocol Docusate Sodium 100 mg 11/23/20 09:00 11/26/20 20:32 Docusate Sodium 100 Mg Capsule PO 100 mg BID [facility] Administration Doxepin HCl 50 mg 11/23/20 21:00 11/26/20 20:32 Doxepin Hcl 25 Mg Capsule PO 50 mg BEDTIME [facility] Administration Gabapentin 400 mg 11/23/20 09:00 11/26/20 20:33 Gabapentin 400 Mg Capsule PO 400 mg TID [facility] Administration Hydroxyzine HCl 50 mg 11/23/20 09:00 11/26/20 20:34 Hydroxyzine Hcl 50 Mg Tablet PO 50 mg TID [facility] Administration Hydroxyzine HCl 25 mg 11/24/20 10:09 Hydroxyzine Hcl 25 Mg Tablet PO BEDTIME PRN Anxiety Ibuprofen 800 mg 11/23/20 09:00 11/26/20 20:33 Ibuprofen 800 Mg Tablet PO 800 mg TID [facility] Administration Loperamide HCl 2 mg 11/24/20 14:13 Loperamide Hcl 2 Mg Capsule PO Q4H PRN Loose Stool Magnesium Hydroxide 30 ml 11/24/20 10:09 Milk Of Magnesia 30 Ml Oral.Susp PO DAILY PRN Constipation Melatonin 3 mg 11/23/20 21:00 11/26/20 20:33 Melatonin 3 Mg Tablet PO 3 mg BEDTIME [facility] Administration Mirtazapine 45 mg 11/23/20 21:00 11/26/20 20:33 Mirtazapine 15 Mg Tablet PO 45 mg BEDTIME [facility] Administration Nicotine Polacrilex 2 mg 11/23/20 08:16 Nicotine Polacrilex 2 Mg Gum BUCCAL Q2H PRN nicotine cravings Olanzapine 5 mg 11/26/20 21:00 11/26/20 20:32 Olanzapine 5 Mg Tablet PO 5 mg BID [facility] Administration Ondansetron HCl 4 mg 11/25/20 09:46 Ondansetron Odt 4 Mg Tab.Rapdis TRANSLINGU Q6H PRN Vomiting Quetiapine Fumarate 50 mg 11/24/20 14:15 11/25/20 09:30 Quetiapine Fumarate 50 Mg Tablet PO 50 mg Q6H PRN Administration agitation Trazodone HCl 50 mg 11/24/20 10:09 Trazodone Hcl 50 Mg Tablet PO BEDTIME PRN Insomnia Allergies Allergies Allergy/AdvReac Type Severity Reaction Status Date / Time codeine [Codeine] Allergy Unknown N/A Verified 05/31/20 15:01 Assessment & Plan Assessment & Plan (1) Opioid use disorder: Status: Acute Code(s): F11.99 - Opioid use, unspecified with unspecified opioid-induced disorder Assessment and Plan: * Methadone 30mg ordered. 5 mg at hs if pt continues with sx. * plan to re-eval and titrate dose as appropriate Greater than 50% of the session was spent on counseling and/or coordination of care Reason for contiued inpatient stay Substantial Risk for: harm to self, inability to function and rapid decompensation
[2020-11-27 06:00] VITALS: BP 123/79; PULSE 94; RESP 18
[2020-11-27] MEDS: OLANZapine 5 MG TABLET PO ×2 (09:55→21:41)
[2020-11-27] MEDS: hydrOXYzine HCL 50 MG TABLET PO ×3 (09:55→21:40)
[2020-11-27] MEDS: Ibuprofen 800 MG TABLET PO ×3 (09:55→21:41)
[2020-11-27] MEDS: Gabapentin 400 MG CAPSULE PO ×3 (09:55→21:40)
[2020-11-27] MEDS: Docusate Sodium 100 MG CAPSULE PO ×2 (09:55→21:42)
[2020-11-27] MEDS: buPROPion HCl XL 300 MG TAB.ER.24H PO (09:55)
[2020-11-27 10:03] VITALS: BP 123/79; PULSE 94
[2020-11-27] MEDS: cloNIDine HCL 0.1 MG TABLET PO ×3 (10:03→21:39)
--- NOTE | 2020-11-27 13:38 | MHC.RECOVSUP ---
Recovery Support note: This fiction and nonfiction prose writer met with patient to discuss his withdrawal symptoms. Patient received 40mg of methadone around 1100 today. Patient continues to report withdrawal symptoms of body aches, nausea and lack of appetite. Discussed case with patient's RN and informed Nancy Lawler NP.
[2020-11-27 14:33] VITALS: BP 135/92; PULSE 94
[2020-11-27 21:23] VITALS: BP 123/66; PULSE 87; RESP 20; TEMP 36.6; O2SAT 95
[2020-11-27 21:39] VITALS: BP 123/66; PULSE 87
[2020-11-27] MEDS: Doxepin HCl 25 MG CAPSULE 50 MG PO (21:39)
[2020-11-27] MEDS: Melatonin 3 MG TABLET PO (21:40)
[2020-11-27] MEDS: Mirtazapine 15 MG TABLET 45 MG PO (21:40)
[2020-11-27] MEDS: Baclofen 10 MG TABLET PO (21:42)
--- NOTE | 2020-11-27 21:45 | P.PNPSI_ITS ---
Subjective Subjective Date of Service: 11/27/20 Reason For Visit: SI Subjective Notes: Conditional Voluntary Healthcare Proxy: No Guardianship: No Medical Problems Affecting Mental Status: No Interim History: Continues to withdraw. Resting in bed. Methadone 40 mg scheduled for today. Pt reports dosing to be helpful. Medication Compliance: Yes Side effects from medications: No Attending Groups: No Review of Systems Reports behavioral changes Psychiatric: Reports abnormal sleep pattern, Reports anxiety, Reports behavioral changes, Reports depression, Reports difficulty concentrating, Reports hopelessness, Reports irritability, Reports mood swings, Reports paranoia and Reports suicidal ideation Mental Status Exam Mental Status Exam Patient Appearance: Fatigued Patient Orientation: Person, Place, Time and Situation Level of Consciousness: Alert Patient Behavior: Appropriate and Cooperative Mood Description: Withdrawn and Anxious Affect Description: Flat Patient Cognition Impaired: No Ability to Follow Directions: Good Speech Pattern: Spontaneous Speech Memory Description: Episodic Impaired Hallucinations: None Delusions: Not Present Thought Process: Distracted Thought Content: positive for Sobieski and positive for Circumstantial Depressive Symptoms: Increased Anxiety and Increased Irritability Judgement: Fair Diagnostics Vital Signs (24Hr): Vital Signs - 24 hr 11/27/20 06:00 11/27/20 10:03 11/27/20 14:33 Temperature Pulse Rate 94 94 94 Respiratory Rate 18 Blood Pressure 123/79 123/79 135/92 H Pulse Oximetry 11/27/20 21:23 11/27/20 21:39 Temperature 97.9 F Pulse Rate 87 87 Respiratory Rate 20 Blood Pressure 123/66 123/66 Pulse Oximetry 95 Body Mass Index 35.9 Labs Results: 11/24/20 10:19 11/24/20 10:19 Medications Medications Current Medications Generic Name Dose Route Start Last Admin Trade Name Freq PRN Reason Stop Dose Admin Acetaminophen 650 mg 11/24/20 10:09 Acetaminophen 325 Mg Tablet PO Q6H PRN Headache/Pain Mild Scale (1-3) Al Hydroxide/Mg Hydroxide 30 ml 11/24/20 10:09 Magnesium Hydrox/Alum Hydrox 30 Ml Oral.Susp PO Q6H PRN Heartburn/Nausea Baclofen 10 mg 11/24/20 14:13 11/27/20 21:42 Baclofen 10 Mg Tablet PO 10 mg BID PRN Administration muscle spasms Bupropion HCl 300 mg 11/23/20 09:00 11/27/20 09:55 Bupropion Hcl Xl 300 Mg Tab.Er.24h PO 300 mg DAILY FRANCIS Administration Clonidine HCl 0.1 mg 11/23/20 09:00 11/27/20 21:39 Clonidine Hcl 0.1 Mg Tablet PO 0.1 mg TID FRANCIS Administration Protocol Docusate Sodium 100 mg 11/23/20 09:00 11/27/20 21:42 Docusate Sodium 100 Mg Capsule PO 100 mg BID FRANCIS Administration Doxepin HCl 50 mg 11/23/20 21:00 11/27/20 21:39 Doxepin Hcl 25 Mg Capsule PO 50 mg BEDTIME FRANCIS Administration Gabapentin 400 mg 11/23/20 09:00 11/27/20 21:40 Gabapentin 400 Mg Capsule PO 400 mg TID FRANCIS Administration Hydroxyzine HCl 50 mg 11/23/20 09:00 11/27/20 21:40 Hydroxyzine Hcl 50 Mg Tablet PO 50 mg TID FRANCIS Administration Hydroxyzine HCl 25 mg 11/24/20 10:09 Hydroxyzine Hcl 25 Mg Tablet PO BEDTIME PRN Anxiety Ibuprofen 800 mg 11/23/20 09:00 11/27/20 21:41 Ibuprofen 800 Mg Tablet PO 800 mg TID FRANCIS Administration Loperamide HCl 2 mg 11/24/20 14:13 Loperamide Hcl 2 Mg Capsule PO Q4H PRN Loose Stool Magnesium Hydroxide 30 ml 11/24/20 10:09 Milk Of Magnesia 30 Ml Oral.Susp PO DAILY PRN Constipation Melatonin 3 mg 11/23/20 21:00 11/27/20 21:40 Melatonin 3 Mg Tablet PO 3 mg BEDTIME FRANCIS Administration Mirtazapine 45 mg 11/23/20 21:00 11/27/20 21:40 Mirtazapine 15 Mg Tablet PO 45 mg BEDTIME FRANCIS Administration Nicotine Polacrilex 2 mg 11/23/20 08:16 Nicotine Polacrilex 2 Mg Gum BUCCAL Q2H PRN nicotine cravings Olanzapine 5 mg 11/26/20 21:00 11/27/20 21:41 Olanzapine 5 Mg Tablet PO 5 mg BID FRANCIS Administration Ondansetron HCl 4 mg 11/25/20 09:46 Ondansetron Odt 4 Mg Tab.Rapdis TRANSLINGU Q6H PRN Vomiting Quetiapine Fumarate 50 mg 11/24/20 14:15 11/25/20 09:30 Quetiapine Fumarate 50 Mg Tablet PO 50 mg Q6H PRN Administration agitation Trazodone HCl 50 mg 11/24/20 10:09 Trazodone Hcl 50 Mg Tablet PO BEDTIME PRN Insomnia Allergies Allergies Allergy/AdvReac Type Severity Reaction Status Date / Time codeine [Codeine] Allergy Unknown N/A Verified 05/31/20 15:01 Assessment & Plan Assessment & Plan (1) Opioid use disorder: Status: Acute Code(s): F11.99 - Opioid use, unspecified with unspecified opioid-induced disorder Assessment and Plan: * Methadone 40mg ordered. * plan to re-eval and titrate dose as appropriate Greater than 50% of the session was spent on counseling and/or coordination of care Patient educated on: therapeutic strategies Informed Consent: understands and further education needed Reason for contiued inpatient stay Substantial Risk for: harm to self, inability to function and rapid decompensation
[2020-11-28 06:00] VITALS: BP 108/60; PULSE 75; RESP 16; TEMP 36.6; O2SAT 94
[2020-11-28 08:00] VITALS: PULSE 75
[2020-11-28] MEDS: Ibuprofen 800 MG TABLET PO ×3 (08:43→21:48)
[2020-11-28] MEDS: Gabapentin 400 MG CAPSULE PO ×3 (08:43→21:48)
[2020-11-28] MEDS: OLANZapine 5 MG TABLET PO ×2 (08:44→21:47)
[2020-11-28] MEDS: buPROPion HCl XL 300 MG TAB.ER.24H PO (08:44)
[2020-11-28] MEDS: cloNIDine HCL 0.1 MG TABLET PO ×3 (08:44→21:48)
[2020-11-28] MEDS: hydrOXYzine HCL 50 MG TABLET PO ×3 (08:44→21:48)
[2020-11-28] MEDS: Docusate Sodium 100 MG CAPSULE PO ×2 (08:45→21:47)
--- NOTE | 2020-11-28 12:31 | HO.PSYCHPN ---
Subjective Subjective Date of Service: 12/01/20 Reason For Visit: SI Interim History: Pt has been mostly in bed all day today. He continues to report depressed mood, suicidal ideation, anhedonia. He reports he wants substance use treatment. He reports hx of hearing voices but thinks these are related to substance use and past trauma not necessarily psychotic in nature. He was encouraged to attend groups.We discussed simplifying regimen. He denies a plan or intent to hurt himself. Review of Systems Review of Systems Constitutional : No Weight loss, No Fever, No Chills, No Night Sweats, No Fatigue, No Malaise ENT/Mouth : No Hearing loss, No Ear Pain, No Nasal Congestion, No Sinus Pain, No Hoarseness, No sore throat, No Rhinorrhea, No Swallowing Difficulty Eyes: No Eye Pain, No Swelling, No Redness, No Foreign Body, No Discharge, No Vision Changes Cardiovascular : No Chest Pain, No SOB, No Dyspnea on Exertion, No Orthopnea, No Edema, No Palpitations Respiratory : No Cough, No Sputum, No Wheezing, No Smoke Exposure, No Dyspnea Gastrointestinal : No Nausea, No Vomiting, No Diarrhea, No Constipation, No abdominal Pain, No Hematochezia, No Melena Genitourinary : no irregular bleeding, No Dysuria, No Urinary Frequency, No Hematuria, No Urinary Incontinence, No Urgency, No Flank Pain, No Urinary Flow Changes, No Hesitancy Musculoskeletal : No joint pain, No Myalgias, No Joint Swelling Skin : No Skin Lesions, No rash Neuro : No Weakness, No Numbness, No Paresthesias, No Loss of Consciousness, No Dizziness, No Headache Psych : Complaining of worsening anxiety and depression, suicidal ideation, no homicidal ideation, complaining of drug abuse Heme/Lymph: No Bruising, No Bleeding,No Lymphadenopathy Endocrine : No Polyuria, No Polydipsia, No Temperature Intolerance Constitutional: Reports as per HPI Cardiovascular: Denies chest pain, Denies rapid heart rate, Denies lightheadedness and Denies dyspnea Respiratory: Denies dyspnea Reports behavioral changes Psychiatric: Reports abnormal sleep pattern, Reports anxiety, Reports behavioral changes, Reports change in appetite, Reports depression, Reports difficulty concentrating, Reports hopelessness, Reports irritability, Reports mood swings, Reports paranoia and Reports suicidal ideation Mental Status Exam Mental Status Exam Narrative: Appearance: wearing hospital gown, poor hygiene, in NAD Behavior: superficially cooperative Psychomotor: no agitation or retardation noted Speech: clear, normal rate/rhythm/volume, spontaneous TP: linear TC: no signs of psychosis, feeling hopeless Mood: depressed Affect: somnolent SI:passive no plan or intent HI:denies AH/VH:denies Delusions:denies Insight/judgment:poor x 2. Memory/cog: alert, oriented x 3. grossly intact to conversational testing. Patient Appearance: Fatigued Patient Orientation: Person, Place, Time and Situation Level of Consciousness: Alert Patient Behavior: Appropriate and Cooperative Mood Description: Withdrawn and Anxious Affect Description: Flat Patient Cognition Impaired: No Ability to Follow Directions: Good Speech Pattern: Spontaneous Speech Memory Description: Episodic Impaired Diagnostics Vital Signs (24Hr): Vital Signs - 24 hr 11/30/20 15:11 11/30/20 21:05 11/30/20 21:29 Pulse Rate 129 H 108 H 108 H Respiratory Rate 18 Blood Pressure 135/93 H 129/77 129/77 Pulse Oximetry 95 12/01/20 06:00 12/01/20 09:19 Pulse Rate 87 73 Respiratory Rate 16 Blood Pressure 112/65 120/62 Pulse Oximetry 97 Body Mass Index 35.9 Labs Results: 11/24/20 10:19 11/24/20 10:19 Medications Medications Current Medications Generic Name Dose Route Start Last Admin Trade Name Chrisq PRN Reason Stop Dose Admin Acetaminophen 650 mg 11/24/20 10:09 12/01/20 06:57 Acetaminophen 325 Mg Tablet PO 650 mg Q6H PRN Administration Headache/Pain Mild Scale (1-3) Al Hydroxide/Mg Hydroxide 30 ml 11/24/20 10:09 Magnesium Hydrox/Alum Hydrox 30 Ml Oral.Susp PO Q6H PRN Heartburn/Nausea Baclofen 10 mg 11/24/20 14:13 12/01/20 06:57 Baclofen 10 Mg Tablet PO 10 mg BID PRN Administration muscle spasms Bupropion HCl 300 mg 11/23/20 09:00 12/01/20 09:19 Bupropion Hcl Xl 300 Mg Tab.Er.24h PO 300 mg DAILY FRANCSI Administration Clonidine HCl 0.1 mg 11/23/20 09:00 12/01/20 09:19 Clonidine Hcl 0.1 Mg Tablet PO 0.1 mg TID FRANCIS Administration Protocol Docusate Sodium 100 mg 11/23/20 09:00 12/01/20 09:27 Docusate Sodium 100 Mg Capsule PO Not Given BID FRANCIS Doxepin HCl 50 mg 11/23/20 21:00 11/30/20 21:05 Doxepin Hcl 25 Mg Capsule PO 50 mg BEDTIME FRANCIS Administration Gabapentin 400 mg 11/23/20 09:00 12/01/20 09:19 Gabapentin 400 Mg Capsule PO 400 mg TID FRANCIS Administration Hydroxyzine HCl 50 mg 11/23/20 09:00 12/01/20 09:19 Hydroxyzine Hcl 50 Mg Tablet PO 50 mg TID FRANCIS Administration Hydroxyzine HCl 25 mg 11/24/20 10:09 11/30/20 00:35 Hydroxyzine Hcl 25 Mg Tablet PO 25 mg BEDTIME PRN Administration Anxiety Ibuprofen 800 mg 11/23/20 09:00 12/01/20 09:18 Ibuprofen 800 Mg Tablet PO 800 mg TID FRANCIS Administration Loperamide HCl 2 mg 11/24/20 14:13 Loperamide Hcl 2 Mg Capsule PO Q4H PRN Loose Stool Magnesium Hydroxide 30 ml 11/24/20 10:09 Milk Of Magnesia 30 Ml Oral.Susp PO DAILY PRN Constipation Melatonin 3 mg 11/23/20 21:00 11/30/20 21:04 Melatonin 3 Mg Tablet PO 3 mg BEDTIME FRANCIS Administration Methadone HCl 40 mg 11/28/20 10:00 12/01/20 09:19 Methadone Hcl 1 Mg/0.1 Ml Oral.Conc PO 40 mg DAILY FRANCIS Administration Nicotine Polacrilex 2 mg 11/23/20 08:16 Nicotine Polacrilex 2 Mg Gum BUCCAL Q2H PRN nicotine cravings Ondansetron HCl 4 mg 11/25/20 09:46 Ondansetron Odt 4 Mg Tab.Rapdis TRANSLINGU Q6H PRN Vomiting Quetiapine Fumarate 50 mg 11/24/20 14:15 11/30/20 18:24 Quetiapine Fumarate 50 Mg Tablet PO 50 mg Q6H PRN Administration agitation Trazodone HCl 50 mg 11/24/20 10:09 11/30/20 21:05 Trazodone Hcl 50 Mg Tablet PO 50 mg BEDTIME PRN Administration Insomnia Allergies Allergies Allergy/AdvReac Type Severity Reaction Status Date / Time codeine [Codeine] Allergy Unknown N/A Verified 05/31/20 15:01 Assessment & Plan Assessment & Plan (1) Opioid use disorder: Status: Acute Code(s): F11.99 - Opioid use, unspecified with unspecified opioid-induced disorder Assessment and Plan: started on methadone MAT (2) MDD (major depressive disorder), recurrent episode, severe: Qualifiers: Psychotic features: with psychotic features Qualified Code(s): F33.3 - Major depressive disorder, recurrent, severe with psychotic symptoms Status: Acute Code(s): F33.2 - Major depressive disorder, recurrent severe without psychotic features Assessment and Plan: Pt on multiple medications- will simplify list. consider d/c remeron, olanzapine. Pt reports clonidine and gabapentin helpful. (3) Hepatitis C antibody positive in blood: Status: Acute Code(s): R76.8 - Other specified abnormal immunological findings in serum Greater than 50% of the session was spent on counseling and/or coordination of care Reason for contiued inpatient stay Substantial Risk for: harm to self
[2020-11-28 18:00] VITALS: BP 136/93; PULSE 88; RESP 20; TEMP 36.5; O2SAT 96
[2020-11-28] MEDS: Melatonin 3 MG TABLET PO (21:47)
[2020-11-28] MEDS: Mirtazapine 15 MG TABLET 45 MG PO (21:48)
[2020-11-28] MEDS: Doxepin HCl 25 MG CAPSULE 50 MG PO (21:48)
[2020-11-28 22:57] VITALS: PULSE 75
[2020-11-29] MEDS: Ibuprofen 800 MG TABLET PO ×3 (06:25→21:10)
[2020-11-29] MEDS: buPROPion HCl XL 300 MG TAB.ER.24H PO (09:40)
[2020-11-29 09:41] VITALS: BP 134/82; PULSE 86
[2020-11-29] MEDS: cloNIDine HCL 0.1 MG TABLET PO ×3 (09:41→21:11)
[2020-11-29] MEDS: Docusate Sodium 100 MG CAPSULE PO ×2 (09:45→21:09)
[2020-11-29] MEDS: Gabapentin 400 MG CAPSULE PO ×3 (09:45→21:11)
[2020-11-29] MEDS: hydrOXYzine HCL 50 MG TABLET PO ×3 (09:45→21:11)
[2020-11-29 10:56] VITALS: BP 134/82; PULSE 86; O2SAT 96
--- NOTE | 2020-11-29 12:34 | P.PNPSI_ITS ---
Subjective Subjective Date of Service: 12/01/20 Reason For Visit: SI Interim History: Pt continues mostly in bed. He continues to report that he is very hopeless/helpless, guilt and shame related to ongoing substance use. He reports passive suicidal ideation but denies any plan or intent. He was encouraged to attend groups. He reports less withdrawal symptoms from opioid. No behavioral concerns. Review of Systems Review of Systems Constitutional : No Weight loss, No Fever, No Chills, No Night Sweats, No Fatigu e, No Malaise ENT/Mouth : No Hearing loss, No Ear Pain, No Nasal Congestion, No Sinus Pain, No Hoarseness, No sore throat, No Rhinorrhea, No Swallowing Difficulty Eyes: No Eye Pain, No Swelling, No Redness, No Foreign Body, No Discharge, No Vision Changes Cardiovascular : No Chest Pain, No SOB, No Dyspnea on Exertion, No Orthopnea, No Edema, No Palpitations Respiratory : No Cough, No Sputum, No Wheezing, No Smoke Exposure, No Dyspnea Gastrointestinal : No Nausea, No Vomiting, No Diarrhea, No Constipation, No abdominal Pain, No Hematochezia, No Melena Genitourinary : no irregular bleeding, No Dysuria, No Urinary Frequency, No Hematuria, No Urinary Incontinence, No Urgency, No Flank Pain, No Urinary Flow Changes, No Hesitancy Musculoskeletal : No joint pain, No Myalgias, No Joint Swelling Skin : No Skin Lesions, No rash Neuro : No Weakness, No Numbness, No Paresthesias, No Loss of Consciousness, No Dizziness, No Headache Psych : Complaining of worsening anxiety and depression, suicidal ideation, no homicidal ideation, complaining of drug abuse Heme/Lymph: No Bruising, No Bleeding,No Lymphadenopathy Endocrine : No Polyuria, No Polydipsia, No Temperature Intolerance Constitutional: Reports as per HPI Cardiovascular: Denies chest pain, Denies rapid heart rate, Denies lightheadedness and Denies dyspnea Respiratory: Denies dyspnea Reports behavioral changes Psychiatric: Reports abnormal sleep pattern, Reports anxiety, Reports behavioral changes, Reports change in appetite, Reports depression, Reports difficulty concentrating, Reports hopelessness, Reports irritability, Reports mood swings, Reports paranoia and Reports suicidal ideation Mental Status Exam Mental Status Exam Narrative: Appearance: wearing hospital gown, poor hygiene, in NAD Behavior: superficially cooperative Psychomotor: no agitation or retardation noted Speech: clear, normal rate/rhythm/volume, spontaneous TP: linear TC: no signs of psychosis, feeling hopeless Mood: depressed Affect: somnolent SI:passive no plan or intent HI:denies AH/VH:denies Delusions:denies Insight/judgment:poor x 2. Memory/cog: alert, oriented x 3. grossly intact to conversational testing. Patient Appearance: Fatigued Patient Orientation: Person, Place, Time and Situation Level of Consciousness: Alert Patient Behavior: Appropriate and Cooperative Mood Description: Withdrawn and Anxious Affect Description: Flat Patient Cognition Impaired: No Ability to Follow Directions: Good Speech Pattern: Spontaneous Speech Memory Description: Episodic Impaired Diagnostics Vital Signs (24Hr): Vital Signs - 24 hr 11/30/20 15:11 11/30/20 21:05 11/30/20 21:29 Pulse Rate 129 H 108 H 108 H Respiratory Rate 18 Blood Pressure 135/93 H 129/77 129/77 Pulse Oximetry 95 12/01/20 06:00 12/01/20 09:19 Pulse Rate 87 73 Respiratory Rate 16 Blood Pressure 112/65 120/62 Pulse Oximetry 97 Body Mass Index 35.9 Labs Results: 11/24/20 10:19 11/24/20 10:19 Medications Medications Current Medications Generic Name Dose Route Start Last Admin Trade Name Freq PRN Reason Stop Dose Admin Acetaminophen 650 mg 11/24/20 10:09 12/01/20 06:57 Acetaminophen 325 Mg Tablet PO 650 mg Q6H PRN Administration Headache/Pain Mild Scale (1-3) Al Hydroxide/Mg Hydroxide 30 ml 11/24/20 10:09 Magnesium Hydrox/Alum Hydrox 30 Ml Oral.Susp PO Q6H PRN Heartburn/Nausea Baclofen 10 mg 11/24/20 14:13 12/01/20 06:57 Baclofen 10 Mg Tablet PO 10 mg BID PRN Administration muscle spasms Bupropion HCl 300 mg 11/23/20 09:00 12/01/20 09:19 Bupropion Hcl Xl 300 Mg Tab.Er.24h PO 300 mg DAILY FRANCIS Administration Clonidine HCl 0.1 mg 11/23/20 09:00 12/01/20 09:19 Clonidine Hcl 0.1 Mg Tablet PO 0.1 mg TID FRANCIS Administration Protocol Docusate Sodium 100 mg 11/23/20 09:00 12/01/20 09:27 Docusate Sodium 100 Mg Capsule PO Not Given BID FRANCIS Doxepin HCl 50 mg 11/23/20 21:00 11/30/20 21:05 Doxepin Hcl 25 Mg Capsule PO 50 mg BEDTIME FRANCIS Administration Gabapentin 400 mg 11/23/20 09:00 12/01/20 09:19 Gabapentin 400 Mg Capsule PO 400 mg TID FRANCIS Administration Hydroxyzine HCl 50 mg 11/23/20 09:00 12/01/20 09:19 Hydroxyzine Hcl 50 Mg Tablet PO 50 mg TID FRANCIS Administration Hydroxyzine HCl 25 mg 11/24/20 10:09 11/30/20 00:35 Hydroxyzine Hcl 25 Mg Tablet PO 25 mg BEDTIME PRN Administration Anxiety Ibuprofen 800 mg 11/23/20 09:00 12/01/20 09:18 Ibuprofen 800 Mg Tablet PO 800 mg TID FRANCIS Administration Loperamide HCl 2 mg 11/24/20 14:13 Loperamide Hcl 2 Mg Capsule PO Q4H PRN Loose Stool Magnesium Hydroxide 30 ml 11/24/20 10:09 Milk Of Magnesia 30 Ml Oral.Susp PO DAILY PRN Constipation Melatonin 3 mg 11/23/20 21:00 11/30/20 21:04 Melatonin 3 Mg Tablet PO 3 mg BEDTIME FRANCIS Administration Methadone HCl 40 mg 11/28/20 10:00 12/01/20 09:19 Methadone Hcl 1 Mg/0.1 Ml Oral.Conc PO 40 mg DAILY FRANCIS Administration Nicotine Polacrilex 2 mg 11/23/20 08:16 Nicotine Polacrilex 2 Mg Gum BUCCAL Q2H PRN nicotine cravings Ondansetron HCl 4 mg 11/25/20 09:46 Ondansetron Odt 4 Mg Tab.Rapdis TRANSLINGU Q6H PRN Vomiting Quetiapine Fumarate 50 mg 11/24/20 14:15 11/30/20 18:24 Quetiapine Fumarate 50 Mg Tablet PO 50 mg Q6H PRN Administration agitation Trazodone HCl 50 mg 11/24/20 10:09 11/30/20 21:05 Trazodone Hcl 50 Mg Tablet PO 50 mg BEDTIME PRN Administration Insomnia Allergies Allergies Allergy/AdvReac Type Severity Reaction Status Date / Time codeine [Codeine] Allergy Unknown N/A Verified 05/31/20 15:01 Assessment & Plan Assessment & Plan (1) Opioid use disorder: Status: Acute Code(s): F11.99 - Opioid use, unspecified with unspecified opioid-induced disorder Assessment and Plan: started on methadone MAT (2) MDD (major depressive disorder), recurrent episode, severe: Qualifiers: Psychotic features: with psychotic features Qualified Code(s): F33.3 - Major depressive disorder, recurrent, severe with psychotic symptoms Status: Acute Code(s): F33.2 - Major depressive disorder, recurrent severe without psychotic features Assessment and Plan: Pt on multiple medications- will simplify list. consider d/c remeron, olanzapine. Pt reports clonidine and gabapentin helpful. (3) Hepatitis C antibody positive in blood: Status: Acute Code(s): R76.8 - Other specified abnormal immunological findings in serum Greater than 50% of the session was spent on counseling and/or coordination of care Reason for contiued inpatient stay Substantial Risk for: harm to self
--- NOTE | 2020-11-29 14:38 | PM.EVENT ---
Event Note Date of Service: 11/28/20 Event Note: Addiction follow up: late entry, patient seen on November 28. Patient seen in follow-up. Methadone titrated over the weekend up to 40 mg daily. Patient denies any withdrawal symptoms. Patient laying in bed during interview appeared somewhat sleepy, reported that this is what he is like when he is depressed . Medication list reviewed noted that he has several scheduled medications that could be adding to sedation, discussed with psychiatric provider regarding concern for sedation. Plan: - continue methadone 40 mg daily - recovery support team to coordinate with psychiatric social workers regarding OTP referral at time of discharge.
[2020-11-29 14:59] VITALS: BP 126/84; PULSE 84
[2020-11-29] MEDS: QUEtiapine Fumarate 50 MG TABLET PO (15:21)
[2020-11-29 18:00] VITALS: BP 165/99; PULSE 97; TEMP 36.7; O2SAT 95
[2020-11-29] MEDS: Doxepin HCl 25 MG CAPSULE 50 MG PO (21:09)
[2020-11-29] MEDS: Melatonin 3 MG TABLET PO (21:10)
[2020-11-29 21:11] VITALS: BP 165/99; PULSE 97
--- NOTE | 2020-11-29 22:18 | PC.NURSE ---
vs taken at time of evening med pass
[2020-11-30] MEDS: QUEtiapine Fumarate 50 MG TABLET PO ×2 (00:35→18:24)
[2020-11-30] MEDS: hydrOXYzine HCL 25 MG TABLET PO (00:35)
[2020-11-30 00:38] VITALS: PULSE 81
[2020-11-30] MEDS: hydrOXYzine HCL 50 MG TABLET PO ×3 (07:39→21:05)
[2020-11-30] MEDS: buPROPion HCl XL 300 MG TAB.ER.24H PO (07:39)
[2020-11-30 07:40] VITALS: BP 136/96; PULSE 90
[2020-11-30] MEDS: Docusate Sodium 100 MG CAPSULE PO ×2 (07:40→21:04)
[2020-11-30] MEDS: cloNIDine HCL 0.1 MG TABLET PO ×3 (07:40→21:05)
[2020-11-30] MEDS: Ibuprofen 800 MG TABLET PO ×3 (07:40→21:04)
[2020-11-30] MEDS: Gabapentin 400 MG CAPSULE PO ×3 (07:41→21:04)
[2020-11-30 07:54] VITALS: BP 135/96; PULSE 96; RESP 18; TEMP 36.6; O2SAT 97
--- NOTE | 2020-11-30 10:35 | MHC.RECOVRN ---
T/w met with pt to obtain CJ for [facility]. Pt agreeable to begin their OTP. Referral sent.
--- NOTE | 2020-11-30 12:35 | P.PNPSI_ITS ---
Subjective Subjective Date of Service: 12/01/20 Reason For Visit: SI Interim History: Pt was up most of the day today. He reports he feels more optimistic about his future. He appears with increased insight into substance use. He reports he wants residential substance use treatment but not in [place] or [place] as he knows people there. He denies SI/HI. He reports he is eating and sleeping well. No behavioral concerns. Review of Systems Review of Systems Constitutional : No Weight loss, No Fever, No Chills, No Night Sweats, No Fatigue, No Malaise ENT/Mouth : No Hearing loss, No Ear Pain, No Nasal Congestion, No Sinus Pain, No Hoarseness, No sore throat, No Rhinorrhea, No Swallowing Difficulty Eyes: No Eye Pain, No Swelling, No Redness, No Foreign Body, No Discharge, No Vision Changes Cardiovascular : No Chest Pain, No SOB, No Dyspnea on Exertion, No Orthopnea, No Edema, No Palpitations Respiratory : No Cough, No Sputum, No Wheezing, No Smoke Exposure, No Dyspnea Gastrointestinal : No Nausea, No Vomiting, No Diarrhea, No Constipation, No abdominal Pain, No Hematochezia, No Melena Genitourinary : no irregular bleeding, No Dysuria, No Urinary Frequency, No Hematuria, No Urinary Incontinence, No Urgency, No Flank Pain, No Urinary Flow Changes, No Hesitancy Musculoskeletal : No joint pain, No Myalgias, No Joint Swelling Skin : No Skin Lesions, No rash Neuro : No Weakness, No Numbness, No Paresthesias, No Loss of Consciousness, No Dizziness, No Headache Psych : Complaining of worsening anxiety and depression, suicidal ideation, no homicidal ideation, complaining of drug abuse Heme/Lymph: No Bruising, No Bleeding,No Lymphadenopathy Endocrine : No Polyuria, No Polydipsia, No Temperature Intolerance Constitutional: Reports as per HPI Cardiovascular: Denies chest pain, Denies rapid heart rate, Denies lightheadedness and Denies dyspnea Respiratory: Denies dyspnea Reports behavioral changes Psychiatric: Reports abnormal sleep pattern, Reports anxiety, Reports behavioral changes, Reports change in appetite, Reports depression, Reports difficulty concentrating, Reports hopelessness, Reports irritability, Reports mood swings, Reports paranoia and Reports suicidal ideation Mental Status Exam Mental Status Exam Narrative: Appearance: wearing hospital gown, poor hygiene, in NAD Behavior: superficially cooperative Psychomotor: no agitation or retardation noted Speech: clear, normal rate/rhythm/volume, spontaneous TP: linear TC: no signs of psychosis, feeling hopeless Mood: depressed Affect: somnolent SI:passive no plan or intent HI:denies AH/VH:denies Delusions:denies Insight/judgment:poor x 2. Memory/cog: alert, oriented x 3. grossly intact to conversational testing. Patient Appearance: Fatigued Patient Orientation: Person, Place, Time and Situation Level of Consciousness: Alert Patient Behavior: Appropriate and Cooperative Mood Description: Withdrawn and Anxious Affect Description: Flat Patient Cognition Impaired: No Ability to Follow Directions: Good Speech Pattern: Spontaneous Speech Memory Description: Episodic Impaired Diagnostics Vital Signs (24Hr): Vital Signs - 24 hr 11/30/20 15:11 11/30/20 21:05 11/30/20 21:29 Pulse Rate 129 H 108 H 108 H Respiratory Rate 18 Blood Pressure 135/93 H 129/77 129/77 Pulse Oximetry 95 12/01/20 06:00 12/01/20 09:19 Pulse Rate 87 73 Respiratory Rate 16 Blood Pressure 112/65 120/62 Pulse Oximetry 97 Body Mass Index 35.9 Labs Results: 11/24/20 10:19 11/24/20 10:19 Medications Medications Current Medications Generic Name Dose Route Start Last Admin Trade Name Freq PRN Reason Stop Dose Admin Acetaminophen 650 mg 11/24/20 10:09 12/01/20 06:57 Acetaminophen 325 Mg Tablet PO 650 mg Q6H PRN Administration Headache/Pain Mild Scale (1-3) Al Hydroxide/Mg Hydroxide 30 ml 11/24/20 10:09 Magnesium Hydrox/Alum Hydrox 30 Ml Oral.Susp PO Q6H PRN Heartburn/Nausea Baclofen 10 mg 11/24/20 14:13 12/01/20 06:57 Baclofen 10 Mg Tablet PO 10 mg BID PRN Administration muscle spasms Bupropion HCl 300 mg 11/23/20 09:00 12/01/20 09:19 Bupropion Hcl Xl 300 Mg Tab.Er.24h PO 300 mg DAILY FRANCIS Administration Clonidine HCl 0.1 mg 11/23/20 09:00 12/01/20 09:19 Clonidine Hcl 0.1 Mg Tablet PO 0.1 mg TID FRANCIS Administration Protocol Docusate Sodium 100 mg 11/23/20 09:00 12/01/20 09:27 Docusate Sodium 100 Mg Capsule PO Not Given BID FRANCIS Doxepin HCl 50 mg 11/23/20 21:00 11/30/20 21:05 Doxepin Hcl 25 Mg Capsule PO 50 mg BEDTIME FRANCIS Administration Gabapentin 400 mg 11/23/20 09:00 12/01/20 09:19 Gabapentin 400 Mg Capsule PO 400 mg TID FRANCIS Administration Hydroxyzine HCl 50 mg 11/23/20 09:00 12/01/20 09:19 Hydroxyzine Hcl 50 Mg Tablet PO 50 mg TID FRANCIS Administration Hydroxyzine HCl 25 mg 11/24/20 10:09 11/30/20 00:35 Hydroxyzine Hcl 25 Mg Tablet PO 25 mg BEDTIME PRN Administration Anxiety Ibuprofen 800 mg 11/23/20 09:00 12/01/20 09:18 Ibuprofen 800 Mg Tablet PO 800 mg TID FRANCIS Administration Loperamide HCl 2 mg 11/24/20 14:13 Loperamide Hcl 2 Mg Capsule PO Q4H PRN Loose Stool Magnesium Hydroxide 30 ml 11/24/20 10:09 Milk Of Magnesia 30 Ml Oral.Susp PO DAILY PRN Constipation Melatonin 3 mg 11/23/20 21:00 11/30/20 21:04 Melatonin 3 Mg Tablet PO 3 mg BEDTIME FRANCIS Administration Methadone HCl 40 mg 11/28/20 10:00 12/01/20 09:19 Methadone Hcl 1 Mg/0.1 Ml Oral.Conc PO 40 mg DAILY FRANCIS Administration Nicotine Polacrilex 2 mg 11/23/20 08:16 Nicotine Polacrilex 2 Mg Gum BUCCAL Q2H PRN nicotine cravings Ondansetron HCl 4 mg 11/25/20 09:46 Ondansetron Odt 4 Mg Tab.Rapdis TRANSLINGU Q6H PRN Vomiting Quetiapine Fumarate 50 mg 11/24/20 14:15 11/30/20 18:24 Quetiapine Fumarate 50 Mg Tablet PO 50 mg Q6H PRN Administration agitation Trazodone HCl 50 mg 11/24/20 10:09 11/30/20 21:05 Trazodone Hcl 50 Mg Tablet PO 50 mg BEDTIME PRN Administration Insomnia Allergies Allergies Allergy/AdvReac Type Severity Reaction Status Date / Time codeine [Codeine] Allergy Unknown N/A Verified 05/31/20 15:01 Assessment & Plan Assessment & Plan (1) Opioid use disorder: Status: Acute Code(s): F11.99 - Opioid use, unspecified with unspecified opioid-induced disorder Assessment and Plan: started on methadone MAT (2) MDD (major depressive disorder), recurrent episode, severe: Qualifiers: Psychotic features: with psychotic features Qualified Code(s): F33.3 - Major depressive disorder, recurrent, severe with psychotic symptoms Status: Acute Code(s): F33.2 - Major depressive disorder, recurrent severe without psychotic features Assessment and Plan: Pt on multiple medications- will simplify list. consider d/c remeron, olanzapine. Pt reports clonidine and gabapentin helpful. (3) Hepatitis C antibody positive in blood: Status: Acute Code(s): R76.8 - Other specified abnormal immunological findings in serum Greater than 50% of the session was spent on counseling and/or coordination of care Reason for contiued inpatient stay Substantial Risk for: harm to self
[2020-11-30 15:11] VITALS: BP 135/93; PULSE 129
[2020-11-30] MEDS: Acetaminophen 325 MG TABLET 650 MG PO (18:24)
[2020-11-30] MEDS: Melatonin 3 MG TABLET PO (21:04)
[2020-11-30 21:05] VITALS: BP 129/77; PULSE 108
[2020-11-30] MEDS: traZODone HCL 50 MG TABLET PO (21:05)
[2020-11-30] MEDS: Doxepin HCl 25 MG CAPSULE 50 MG PO (21:05)
[2020-11-30 21:29] VITALS: BP 129/77; PULSE 108; RESP 18; O2SAT 95
[2020-12-01 06:00] VITALS: BP 112/65; PULSE 87; RESP 16; O2SAT 97
[2020-12-01] MEDS: Acetaminophen 325 MG TABLET 650 MG PO (06:57)
[2020-12-01] MEDS: Baclofen 10 MG TABLET PO (06:57)
--- NOTE | 2020-12-01 08:37 | HO.PSYCHPN ---
Subjective Subjective Date of Service: 12/02/20 Reason For Visit: SI Interim History: Pt with much brighter affect. He reports he had visit from mom and it was very supportive. He reports he is sleeping better. He states he is more positive about his future. He continues to report motivation to do residential substance use treatment. He denies SI/HI. He reports tooth pain, ibuprophen helping, afebrile, no discharge coming from tooth. He has been more visible in the unit, social with select peers. Encouraged to attend groups. Review of Systems Review of Systems Constitutional : No Weight loss, No Fever, No Chills, No Night Sweats, No Fatigue, No Malaise ENT/Mouth : No Hearing loss, No Ear Pain, No Nasal Congestion, No Sinus Pain, No Hoarseness, No sore throat, No Rhinorrhea, No Swallowing Difficulty Eyes: No Eye Pain, No Swelling, No Redness, No Foreign Body, No Discharge, No Vision Changes Cardiovascular : No Chest Pain, No SOB, No Dyspnea on Exertion, No Orthopnea, No Edema, No Palpitations Respiratory : No Cough, No Sputum, No Wheezing, No Smoke Exposure, No Dyspnea Gastrointestinal : No Nausea, No Vomiting, No Diarrhea, No Constipation, No abdominal Pain, No Hematochezia, No Melena Genitourinary : no irregular bleeding, No Dysuria, No Urinary Frequency, No Hematuria, No Urinary Incontinence, No Urgency, No Flank Pain, No Urinary Flow Changes, No Hesitancy Musculoskeletal : No joint pain, No Myalgias, No Joint Swelling Skin : No Skin Lesions, No rash Neuro : No Weakness, No Numbness, No Paresthesias, No Loss of Consciousness, No Dizziness, No Headache Psych : Complaining of worsening anxiety and depression, suicidal ideation, no homicidal ideation, complaining of drug abuse Heme/Lymph: No Bruising, No Bleeding,No Lymphadenopathy Endocrine : No Polyuria, No Polydipsia, No Temperature Intolerance Constitutional: Reports as per HPI Cardiovascular: Denies chest pain, Denies rapid heart rate, Denies lightheadedness and Denies dyspnea Respiratory: Denies dyspnea Reports behavioral changes Psychiatric: Reports abnormal sleep pattern, Reports anxiety, Reports behavioral changes, Reports change in appetite, Reports depression, Reports difficulty concentrating, Reports hopelessness, Reports irritability, Reports mood swings, Reports paranoia and Reports suicidal ideation Mental Status Exam Mental Status Exam Narrative: Appearance: MO casually groomed, improved hygiene, in NAD Behavior: cooperative Psychomotor: no agitation or retardation noted Speech: clear, normal rate/rhythm/volume, spontaneous TP: linear TC: no signs of psychosis, more hopeful, future oriented Mood: better Affect: brighter SI:denies HI:denies AH/VH:denies Delusions:denies Insight/judgment: improving Memory/cog: alert, oriented x 3. grossly intact to conversational testing. Diagnostics Vital Signs (24Hr): Vital Signs - 24 hr 12/01/20 09:19 12/01/20 14:30 12/01/20 20:06 Temperature 98 F Pulse Rate 73 108 H 90 Respiratory Rate 16 Blood Pressure 120/62 126/89 120/70 Pulse Oximetry 95 12/01/20 20:57 Temperature Pulse Rate 90 Respiratory Rate Blood Pressure 120/70 Pulse Oximetry Body Mass Index 35.9 Labs Results: 11/24/20 10:19 11/24/20 10:19 Medications Medications Current Medications Generic Name Dose Route Start Last Admin Trade Name Freq PRN Reason Stop Dose Admin Acetaminophen 650 mg 11/24/20 10:09 12/01/20 06:57 Acetaminophen 325 Mg Tablet PO 650 mg Q6H PRN Administration Headache/Pain Mild Scale (1-3) Al Hydroxide/Mg Hydroxide 30 ml 11/24/20 10:09 Magnesium Hydrox/Alum Hydrox 30 Ml Oral.Susp PO Q6H PRN Heartburn/Nausea Baclofen 10 mg 11/24/20 14:13 12/01/20 06:57 Baclofen 10 Mg Tablet PO 10 mg BID PRN Administration muscle spasms Bupropion HCl 300 mg 11/23/20 09:00 12/01/20 09:19 Bupropion Hcl Xl 300 Mg Tab.Er.24h PO 300 mg DAILY FRANCIS Administration Clonidine HCl 0.1 mg 11/23/20 09:00 12/01/20 20:57 Clonidine Hcl 0.1 Mg Tablet PO 0.1 mg TID FRANCIS Administration Protocol Docusate Sodium 100 mg 11/23/20 09:00 12/01/20 20:56 Docusate Sodium 100 Mg Capsule PO 100 mg BID FRANCIS Administration Doxepin HCl 50 mg 11/23/20 21:00 12/01/20 20:56 Doxepin Hcl 25 Mg Capsule PO 50 mg BEDTIME FRANCIS Administration Gabapentin 400 mg 11/23/20 09:00 12/01/20 20:56 Gabapentin 400 Mg Capsule PO 400 mg TID FRANCIS Administration Hydroxyzine HCl 50 mg 11/23/20 09:00 12/01/20 20:57 Hydroxyzine Hcl 50 Mg Tablet PO 50 mg TID FRANCIS Administration Hydroxyzine HCl 25 mg 11/24/20 10:09 11/30/20 00:35 Hydroxyzine Hcl 25 Mg Tablet PO 25 mg BEDTIME PRN Administration Anxiety Ibuprofen 800 mg 11/23/20 09:00 12/01/20 20:57 Ibuprofen 800 Mg Tablet PO 800 mg TID FRANCIS Administration Loperamide HCl 2 mg 11/24/20 14:13 Loperamide Hcl 2 Mg Capsule PO Q4H PRN Loose Stool Magnesium Hydroxide 30 ml 11/24/20 10:09 Milk Of Magnesia 30 Ml Oral.Susp PO DAILY PRN Constipation Melatonin 3 mg 11/23/20 21:00 12/01/20 20:56 Melatonin 3 Mg Tablet PO 3 mg BEDTIME FRANCIS Administration Methadone HCl 40 mg 11/28/20 10:00 12/01/20 09:19 Methadone Hcl 1 Mg/0.1 Ml Oral.Conc PO 40 mg DAILY FRANCIS Administration Nicotine Polacrilex 2 mg 11/23/20 08:16 Nicotine Polacrilex 2 Mg Gum BUCCAL Q2H PRN nicotine cravings Ondansetron HCl 4 mg 11/25/20 09:46 Ondansetron Odt 4 Mg Tab.Rapdis TRANSLINGU Q6H PRN Vomiting Quetiapine Fumarate 50 mg 11/24/20 14:15 12/01/20 22:29 Quetiapine Fumarate 50 Mg Tablet PO 50 mg Q6H PRN Administration agitation Trazodone HCl 50 mg 11/24/20 10:09 12/01/20 22:28 Trazodone Hcl 50 Mg Tablet PO 50 mg BEDTIME PRN Administration Insomnia Allergies Allergies Allergy/AdvReac Type Severity Reaction Status Date / Time codeine [Codeine] Allergy Unknown N/A Verified 05/31/20 15:01 Assessment & Plan Assessment & Plan (1) Opioid use disorder: Status: Acute Code(s): F11.99 - Opioid use, unspecified with unspecified opioid-induced disorder Assessment and Plan: started on methadone MAT (2) MDD (major depressive disorder), recurrent episode, severe: Qualifiers: Psychotic features: with psychotic features Qualified Code(s): F33.3 - Major depressive disorder, recurrent, severe with psychotic symptoms Status: Acute Code(s): F33.2 - Major depressive disorder, recurrent severe without psychotic features Assessment and Plan: Pt on multiple medications- will simplify list. consider d/c remeron, olanzapine. Pt reports clonidine and gabapentin helpful. (3) Hepatitis C antibody positive in blood: Status: Acute Code(s): R76.8 - Other specified abnormal immunological findings in serum Greater than 50% of the session was spent on counseling and/or coordination of care Reason for contiued inpatient stay Substantial Risk for: harm to self
[2020-12-01] MEDS: Ibuprofen 800 MG TABLET PO ×3 (09:18→20:57)
[2020-12-01 09:19] VITALS: BP 120/62; PULSE 73
[2020-12-01] MEDS: buPROPion HCl XL 300 MG TAB.ER.24H PO (09:19)
[2020-12-01] MEDS: Gabapentin 400 MG CAPSULE PO ×3 (09:19→20:56)
[2020-12-01] MEDS: hydrOXYzine HCL 50 MG TABLET PO ×3 (09:19→20:57)
[2020-12-01] MEDS: cloNIDine HCL 0.1 MG TABLET PO ×3 (09:19→20:57)
[2020-12-01 14:30] VITALS: BP 126/89; PULSE 108
--- NOTE | 2020-12-01 18:10 | PC.NURSE ---
Patient requested envelope from [employer], gave his mother some money during her visit today. New envelope sent to [employer] with $171.00.
[2020-12-01 20:06] VITALS: BP 120/70; PULSE 90; RESP 16; TEMP 36.6; O2SAT 95
[2020-12-01] MEDS: Doxepin HCl 25 MG CAPSULE 50 MG PO (20:56)
[2020-12-01] MEDS: Docusate Sodium 100 MG CAPSULE PO (20:56)
[2020-12-01] MEDS: Melatonin 3 MG TABLET PO (20:56)
[2020-12-01 20:57] VITALS: BP 120/70; PULSE 90
[2020-12-01] MEDS: traZODone HCL 50 MG TABLET PO (22:28)
[2020-12-01] MEDS: QUEtiapine Fumarate 50 MG TABLET PO (22:29)
[2020-12-02 06:00] VITALS: BP 104/55; PULSE 72; RESP 20; O2SAT 91
[2020-12-02] MEDS: Gabapentin 400 MG CAPSULE PO ×3 (09:11→21:42)
[2020-12-02] MEDS: Ibuprofen 800 MG TABLET PO ×3 (09:11→21:42)
[2020-12-02] MEDS: buPROPion HCl XL 300 MG TAB.ER.24H PO (09:11)
[2020-12-02 09:12] VITALS: BP 96/55; PULSE 73
[2020-12-02] MEDS: hydrOXYzine HCL 50 MG TABLET PO ×3 (09:12→21:41)
[2020-12-02] MEDS: Docusate Sodium 100 MG CAPSULE PO ×2 (09:12→21:42)
[2020-12-02] MEDS: cloNIDine HCL 0.1 MG TABLET PO ×3 (09:12→21:41)
[2020-12-02] MEDS: QUEtiapine Fumarate 50 MG TABLET PO ×2 (10:38→16:47)
--- NOTE | 2020-12-02 11:08 | P.PNPSI_ITS ---
Subjective Subjective Date of Service: 12/02/20 Reason For Visit: SI Interim History: Pt reports tooth pain worsening, unable to sleep last night due to tooth pain. Current, pt has no discharge from tooth, afebrile, no s/s of systemic infection. However, discussed starting augmentin until he is seen by dentist. He reports today he has been feeling irritable, somewhat anxious, does admit to some degree of cravings but continues motivated to go to residential substance use treatment program. We discussed prn meds here in unit for anxiety and restless, but pt understands that if benzo prescribed here he won't be given rx at time of discharge. He was encouraged to attend groups, utilize coping skills. He denies SI/HI. No behavioral concerns. Review of Systems Review of Systems Constitutional : No Weight loss, No Fever, No Chills, No Night Sweats, No Fatigue, No Malaise ENT/Mouth : No Hearing loss, No Ear Pain, No Nasal Congestion, No Sinus Pain, No Hoarseness, No sore throat, No Rhinorrhea, No Swallowing Difficulty Eyes: No Eye Pain, No Swelling, No Redness, No Foreign Body, No Discharge, No Vision Changes Cardiovascular : No Chest Pain, No SOB, No Dyspnea on Exertion, No Orthopnea, No Edema, No Palpitations Respiratory : No Cough, No Sputum, No Wheezing, No Smoke Exposure, No Dyspnea Gastrointestinal : No Nausea, No Vomiting, No Diarrhea, No Constipation, No abdominal Pain, No Hematochezia, No Melena Genitourinary : no irregular bleeding, No Dysuria, No Urinary Frequency, No Hematuria, No Urinary Incontinence, No Urgency, No Flank Pain, No Urinary Flow Changes, No Hesitancy Musculoskeletal : No joint pain, No Myalgias, No Joint Swelling Skin : No Skin Lesions, No rash Neuro : No Weakness, No Numbness, No Paresthesias, No Loss of Consciousness, No Dizziness, No Headache Psych : Complaining of worsening anxiety and depression, suicidal ideation, no homicidal ideation, complaining of drug abuse Heme/Lymph: No Bruising, No Bleeding,No Lymphadenopathy Endocrine : No Polyuria, No Polydipsia, No Temperature Intolerance Constitutional: Reports as per HPI Cardiovascular: Denies chest pain, Denies rapid heart rate, Denies lighthead edness and Denies dyspnea Respiratory: Denies dyspnea Reports behavioral changes Psychiatric: Reports abnormal sleep pattern, Reports anxiety, Reports behavioral changes, Reports change in appetite, Reports depression, Reports difficulty concentrating, Reports hopelessness, Reports irritability, Reports mood swings, Reports paranoia and Reports suicidal ideation Mental Status Exam Mental Status Exam Narrative: Appearance: MO casually groomed, improved hygiene, in NAD Behavior: cooperative Psychomotor: no agitation or retardation noted Speech: clear, normal rate/rhythm/volume, spontaneous TP: linear TC: no signs of psychosis, more hopeful, future oriented Mood: better Affect: brighter SI:denies HI:denies AH/VH:denies Delusions:denies Insight/judgment: improving Memory/cog: alert, oriented x 3. grossly intact to conversational testing. Diagnostics Vital Signs (24Hr): Vital Signs - 24 hr 12/01/20 14:30 12/01/20 20:06 12/01/20 20:57 Temperature 98 F Pulse Rate 108 H 90 90 Respiratory Rate 16 Blood Pressure 126/89 120/70 120/70 Pulse Oximetry 95 12/02/20 06:00 12/02/20 09:12 Temperature Pulse Rate 72 73 Respiratory Rate 20 Blood Pressure 104/55 L 96/55 L Pulse Oximetry 91 L Body Mass Index 35.9 Labs Results: 11/24/20 10:19 11/24/20 10:19 Medications Medications Current Medications Generic Name Dose Route Start Last Admin Trade Name Freq PRN Reason Stop Dose Admin Acetaminophen 650 mg 11/24/20 10:09 12/01/20 06:57 Acetaminophen 325 Mg Tablet PO 650 mg Q6H PRN Administration Headache/Pain Mild Scale (1-3) Al Hydroxide/Mg Hydroxide 30 ml 11/24/20 10:09 Magnesium Hydrox/Alum Hydrox 30 Ml Oral.Susp PO Q6H PRN Heartburn/Nausea Amoxicillin/Clavulanate Potassium 875 mg 12/02/20 11:00 Amoxicillin/Potassium Clav 875 Mg Tablet PO 12/12/20 10:59 Q12H FRANCIS Baclofen 10 mg 11/24/20 14:13 12/01/20 06:57 Baclofen 10 Mg Tablet PO 10 mg BID PRN Administration muscle spasms Bupropion HCl 300 mg 11/23/20 09:00 12/02/20 09:11 Bupropion Hcl Xl 300 Mg Tab.Er.24h PO 300 mg DAILY FRANCIS Administration Clonidine HCl 0.1 mg 11/23/20 09:00 12/02/20 09:12 Clonidine Hcl 0.1 Mg Tablet PO 0.1 mg TID FRANCIS Administration Protocol Docusate Sodium 100 mg 11/23/20 09:00 12/02/20 09:12 Docusate Sodium 100 Mg Capsule PO 100 mg BID FRANCIS Administration Doxepin HCl 50 mg 11/23/20 21:00 12/01/20 20:56 Doxepin Hcl 25 Mg Capsule PO 50 mg BEDTIME FRANCIS Administration Gabapentin 400 mg 11/23/20 09:00 12/02/20 09:11 Gabapentin 400 Mg Capsule PO 400 mg TID FRANCIS Administration Hydroxyzine HCl 50 mg 11/23/20 09:00 12/02/20 09:12 Hydroxyzine Hcl 50 Mg Tablet PO 50 mg TID FRANCIS Administration Hydroxyzine HCl 25 mg 11/24/20 10:09 11/30/20 00:35 Hydroxyzine Hcl 25 Mg Tablet PO 25 mg BEDTIME PRN Administration Anxiety Ibuprofen 800 mg 11/23/20 09:00 12/02/20 09:11 Ibuprofen 800 Mg Tablet PO 800 mg TID FRANCIS Administration Loperamide HCl 2 mg 11/24/20 14:13 Loperamide Hcl 2 Mg Capsule PO Q4H PRN Loose Stool Magnesium Hydroxide 30 ml 11/24/20 10:09 Milk Of Magnesia 30 Ml Oral.Susp PO DAILY PRN Constipation Melatonin 3 mg 11/23/20 21:00 12/01/20 20:56 Melatonin 3 Mg Tablet PO 3 mg BEDTIME FRANCIS Administration Methadone HCl 40 mg 11/28/20 10:00 12/02/20 09:18 Methadone Hcl 1 Mg/0.1 Ml Oral.Conc PO 40 mg DAILY FRANCIS Administration Nicotine Polacrilex 2 mg 11/23/20 08:16 Nicotine Polacrilex 2 Mg Gum BUCCAL Q2H PRN nicotine cravings Ondansetron HCl 4 mg 11/25/20 09:46 Ondansetron Odt 4 Mg Tab.Rapdis TRANSLINGU Q6H PRN Vomiting Quetiapine Fumarate 50 mg 11/24/20 14:15 12/02/20 10:38 Quetiapine Fumarate 50 Mg Tablet PO 50 mg Q6H PRN Administration agitation Trazodone HCl 50 mg 11/24/20 10:09 12/01/20 22:28 Trazodone Hcl 50 Mg Tablet PO 50 mg BEDTIME PRN Administration Insomnia Allergies Allergies Allergy/AdvReac Type Severity Reaction Status Date / Time codeine [Codeine] Allergy Unknown N/A Verified 05/31/20 15:01 Assessment & Plan Assessment & Plan (1) Opioid use disorder: Status: Acute Code(s): F11.99 - Opioid use, unspecified with unspecified opioid-induced disorder Assessment and Plan: started on methadone MAT (2) MDD (major depressive disorder), recurrent episode, severe: Qualifiers: Psychotic features: with psychotic features Qualified Code(s): F33.3 - Major depressive disorder, recurrent, severe with psychotic symptoms Status: Acute Code(s): F33.2 - Major depressive disorder, recurrent severe without psychotic features Assessment and Plan: Pt on multiple medications- will simplify list. consider d/c remeron, ol anzapine. Pt reports clonidine and gabapentin helpful. - Add diazepam 5mg q8hrs prn anxiety- PT UNDERSTANDS HE WILL NOT BE DISCHARGED ON THIS MEDICATION, ONLY WHILE IN UNIT GIVEN CONCERNS OF INCREASED RISK OF ACCIDENTAL FATAL OVERDOSE WITH OPIOIDS AND RISKS OF MISUSE OR ABUSE. (3) Hepatitis C antibody positive in blood: Status: Acute Code(s): R76.8 - Other specified abnormal immunological findings in serum (4) Tooth infection: Status: Acute Code(s): K04.7 - Periapical abscess without sinus Assessment and Plan: - Started on 12/02/2020- Augmentin 875mg po q12h x 10 days ---> Needs to be seen by dentist. Greater than 50% of the session was spent on counseling and/or coordination of care Reason for contiued inpatient stay Substantial Risk for: harm to self
[2020-12-02] MEDS: Amoxicillin/Potassium Clav 875 MG TABLET PO ×2 (12:25→21:41)
[2020-12-02] MEDS: diazePAM 5 MG TABLET PO ×2 (12:25→18:22)
[2020-12-02 15:06] VITALS: BP 118/71; PULSE 95
[2020-12-02 18:00] VITALS: BP 129/80; PULSE 81; RESP 20; TEMP 36.8; O2SAT 96
[2020-12-02 21:41] VITALS: BP 129/80; PULSE 81
[2020-12-02] MEDS: Melatonin 3 MG TABLET PO (21:41)
[2020-12-02] MEDS: traZODone HCL 50 MG TABLET PO (21:42)
[2020-12-02] MEDS: Doxepin HCl 25 MG CAPSULE 50 MG PO (21:42)
[2020-12-03 06:00] VITALS: BP 112/68; PULSE 70; RESP 18; TEMP 36.5; O2SAT 94
[2020-12-03 09:01] VITALS: BP 112/68; PULSE 70
[2020-12-03] MEDS: cloNIDine HCL 0.1 MG TABLET PO ×3 (09:01→21:46)
[2020-12-03] MEDS: Ibuprofen 800 MG TABLET PO ×3 (09:02→21:45)
[2020-12-03] MEDS: buPROPion HCl XL 300 MG TAB.ER.24H PO (09:02)
[2020-12-03] MEDS: Gabapentin 400 MG CAPSULE PO (09:02)
[2020-12-03] MEDS: Docusate Sodium 100 MG CAPSULE PO ×2 (09:02→21:45)
[2020-12-03] MEDS: hydrOXYzine HCL 50 MG TABLET PO ×3 (09:02→21:46)
[2020-12-03] MEDS: Amoxicillin/Potassium Clav 875 MG TABLET PO ×2 (10:21→21:46)
[2020-12-03] MEDS: diazePAM 5 MG TABLET PO ×2 (10:21→18:35)
[2020-12-03] MEDS: QUEtiapine Fumarate 50 MG TABLET PO ×2 (12:29→21:46)
--- NOTE | 2020-12-03 13:25 | HO.PSYCHPN ---
Subjective Subjective Date of Service: 12/03/20 Reason For Visit: SI Interim History: noted documentation from yesterday and addition of Valium and patient understanding this would not be continued after discharge in context of being referred to inpatient substance programming. Today he reports feeling irritable and anxious. Reports feeling stressed with current unit milieu. Reports feeling fed up with life and hopeless at times. Also reports wanting to do well and that history of being sober for 3 years in the past his motivating. would like inpatient substance programming. Did discuss medications and utilizing gabapentin ie increasing dose to 600 mg 3 times per day and this is not beneficial, then 800 mg 3 times per day. 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 Appeared to show understanding and in agreement with plan. Review of Systems Review of Systems unremarkable Mental Status Exam Mental Status Exam Narrative: seen in room. Initially guarded. Self-care okay. Depressed. Anxious. Some irritability at times. Thoughts of , but also wants help. No active SI. No HI. No psychosis. Insight and judgment okay Diagnostics Vital Signs (24Hr): Vital Signs - 24 hr 12/03/20 06:00 12/03/20 09:01 12/03/20 21:46 Temperature 97.7 F Pulse Rate 70 70 89 Respiratory Rate 18 Blood Pressure 112/68 112/68 137/96 H Pulse Oximetry 94 12/03/20 21:48 Temperature 97.8 F Pulse Rate Respiratory Rate Blood Pressure Pulse Oximetry 97 Body Mass Index 35.9 Labs Results: 11/24/20 10:19 11/24/20 10:19 Medications Medications Current Medications Generic Name Dose Route Start Last Admin Trade Name Freq PRN Reason Stop Dose Admin Acetaminophen 650 mg 11/24/20 10:09 12/01/20 06:57 Acetaminophen 325 Mg Tablet PO 650 mg Q6H PRN Administration Headache/Pain Mild Scale (1-3) Al Hydroxide/Mg Hydroxide 30 ml 11/24/20 10:09 Magnesium Hydrox/Alum Hydrox 30 Ml Oral.Susp PO Q6H PRN Heartburn/Nausea Amoxicillin/Clavulanate Potassium 875 mg 12/02/20 11:00 12/03/20 21:46 Amoxicillin/Potassium Clav 875 Mg Tablet PO 12/12/20 10:59 875 mg Q12H FRANCIS Administration Baclofen 10 mg 11/24/20 14:13 12/01/20 06:57 Baclofen 10 Mg Tablet PO 10 mg BID PRN Administration muscle spasms Bupropion HCl 300 mg 11/23/20 09:00 12/03/20 09:02 Bupropion Hcl Xl 300 Mg Tab.Er.24h PO 300 mg DAILY FRANCIS Administration Clonidine HCl 0.1 mg 11/23/20 09:00 12/03/20 21:46 Clonidine Hcl 0.1 Mg Tablet PO 0.1 mg TID FRANCIS Administration Protocol Diazepam 5 mg 12/02/20 11:06 12/03/20 18:35 Diazepam 5 Mg Tablet PO 5 mg Q8H PRN Administration anxiety/restlessness Docusate Sodium 100 mg 11/23/20 09:00 12/03/20 21:45 Docusate Sodium 100 Mg Capsule PO 100 mg BID FRANCIS Administration Doxepin HCl 50 mg 11/23/20 21:00 12/03/20 21:46 Doxepin Hcl 25 Mg Capsule PO 50 mg BEDTIME FRANCIS Administration Gabapentin 600 mg 12/03/20 15:00 12/03/20 21:46 Gabapentin 600 Mg Tablet PO 600 mg TID FRANCIS Administration Hydroxyzine HCl 50 mg 11/23/20 09:00 12/03/20 21:46 Hydroxyzine Hcl 50 Mg Tablet PO 50 mg TID FRANCIS Administration Hydroxyzine HCl 25 mg 11/24/20 10:09 11/30/20 00:35 Hydroxyzine Hcl 25 Mg Tablet PO 25 mg BEDTIME PRN Administration Anxiety Ibuprofen 800 mg 11/23/20 09:00 12/03/20 21:45 Ibuprofen 800 Mg Tablet PO 800 mg TID FRANCIS Administration Loperamide HCl 2 mg 11/24/20 14:13 Loperamide Hcl 2 Mg Capsule PO Q4H PRN Loose Stool Magnesium Hydroxide 30 ml 11/24/20 10:09 Milk Of Magnesia 30 Ml Oral.Susp PO DAILY PRN Constipation Melatonin 3 mg 11/23/20 21:00 12/03/20 21:46 Melatonin 3 Mg Tablet PO 3 mg BEDTIME FRANCIS Administration Methadone HCl 40 mg 11/28/20 10:00 12/03/20 09:01 Methadone Hcl 1 Mg/0.1 Ml Oral.Conc PO 40 mg DAILY FRANCIS Administration Nicotine Polacrilex 2 mg 11/23/20 08:16 Nicotine Polacrilex 2 Mg Gum BUCCAL Q2H PRN nicotine cravings Ondansetron HCl 4 mg 11/25/20 09:46 Ondansetron Odt 4 Mg Tab.Rapdis TRANSLINGU Q6H PRN Vomiting Quetiapine Fumarate 50 mg 11/24/20 14:15 12/03/20 21:46 Quetiapine Fumarate 50 Mg Tablet PO 50 mg Q6H PRN Administration agitation Trazodone HCl 50 mg 11/24/20 10:09 12/02/20 21:42 Trazodone Hcl 50 Mg Tablet PO 50 mg BEDTIME PRN Administration Insomnia Allergies Allergies Allergy/AdvReac Type Severity Reaction Status Date / Time codeine [Codeine] Allergy Unknown N/A Verified 05/31/20 15:01 Assessment & Plan Assessment & Plan (1) Opioid use disorder: Status: Acute Code(s): F11.99 - Opioid use, unspecified with unspecified opioid-induced disorder Assessment and Plan: started on methadone MAT (2) MDD (major depressive disorder), recurrent episode, severe: Qualifiers: Psychotic features: with psychotic features Qualified Code(s): F33.3 - Major depressive disorder, recurrent, severe with psychotic symptoms Status: Acute Code(s): F33.2 - Major depressive disorder, recurrent severe without psychotic features Assessment and Plan: Pt on multiple medications- will simplify list. consider d/c remeron, olanzapine. Pt reports clonidine and gabapentin helpful. - Add diazepam 5mg q8hrs prn anxiety- PT UNDERSTANDS HE WILL NOT BE DISCHARGED ON THIS MEDICATION, ONLY WHILE IN UNIT GIVEN CONCERNS OF INCREASED RISK OF ACCIDENTAL FATAL OVERDOSE WITH OPIOIDS AND RISKS OF MISUSE OR ABUSE. 12/03/20: Did discuss medications and utilizing gabapentin ie increasing dose to 600 mg 3 times per day and this is not beneficial, then 800 mg 3 times per day. 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 Appeared to show understanding and in agreement with plan (3) Hepatitis C antibody positive in blood: Status: Acute Code(s): R76.8 - Other specified abnormal immunological findings in serum (4) Tooth infection: Status: Acute Code(s): K04.7 - Periapical abscess without sinus Assessment and Plan: - Started on 12/02/2020- Augmentin 875mg po q12h x 10 days ---> Needs to be seen by dentist. Greater than 50% of the session was spent on counseling and/or coordination of care Reason for contiued inpatient stay Substantial Risk for: harm to self
[2020-12-03] MEDS: Gabapentin 600 MG TABLET PO ×2 (16:05→21:46)
[2020-12-03 21:46] VITALS: BP 137/96; PULSE 89
[2020-12-03] MEDS: Doxepin HCl 25 MG CAPSULE 50 MG PO (21:46)
[2020-12-03] MEDS: Melatonin 3 MG TABLET PO (21:46)
[2020-12-03 21:48] VITALS: TEMP 36.6; O2SAT 97
[2020-12-04 06:00] VITALS: BP 118/80; PULSE 98; RESP 16; TEMP 36.4; O2SAT 94
[2020-12-04 09:32] VITALS: BP 118/80; PULSE 98
[2020-12-04] MEDS: cloNIDine HCL 0.1 MG TABLET PO ×3 (09:32→21:40)
[2020-12-04] MEDS: Ibuprofen 800 MG TABLET PO ×3 (09:32→21:40)
[2020-12-04] MEDS: Docusate Sodium 100 MG CAPSULE PO ×2 (09:33→21:40)
[2020-12-04] MEDS: buPROPion HCl XL 300 MG TAB.ER.24H PO (09:33)
[2020-12-04] MEDS: hydrOXYzine HCL 50 MG TABLET PO ×3 (09:33→21:39)
[2020-12-04] MEDS: Gabapentin 600 MG TABLET PO (09:33)
[2020-12-04] MEDS: Amoxicillin/Potassium Clav 875 MG TABLET PO ×2 (11:13→21:40)
[2020-12-04] MEDS: diazePAM 5 MG TABLET PO ×2 (11:14→19:54)
[2020-12-04] MEDS: Gabapentin 400 MG CAPSULE 800 MG PO ×2 (14:42→21:40)
--- NOTE | 2020-12-04 15:09 | HO.PSYCHPN ---
Subjective Subjective Date of Service: 12/04/20 Reason For Visit: SI Interim History: Continues report feeling depressed, anxious and hopeless at times, with intermittent SI. Also willing to accept help and hopefully lead rehab programming will be helpful from a substance dependance perspective. Support and encouragement provided [place] and also highlighted history of 3 year sobriety in the past. Anxiety still high [place] [facility] for increase gabapentin to 800 mg as discussed yesterday. Is still getting tooth pain at nighttime I will order topical agent for same. Otherwise isolative or watching TV and minimal social interactions. Medication Compliance: Yes Side effects from medications: No Mental Status Exam Mental Status Exam Narrative: Seen in day area as per patient request. Pleasant. Hospital clothing and limited self-care. Depressed and anxious. Hopeless at times and thoughts of . Denied active SI. No HI. No psychosis. Insight and judgment okay Diagnostics Vital Signs (24Hr): Vital Signs - 24 hr 12/03/20 21:46 12/03/20 21:48 12/04/20 06:00 Temperature 97.8 F 97.6 F Pulse Rate 89 98 Respiratory Rate 16 Blood Pressure 137/96 H 118/80 Pulse Oximetry 97 94 12/04/20 09:32 Temperature Pulse Rate 98 Respiratory Rate Blood Pressure 118/80 Pulse Oximetry Body Mass Index 35.9 Labs Results: 11/24/20 10:19 11/24/20 10:19 Medications Medications Current Medications Generic Name Dose Route Start Last Admin Trade Name Freq PRN Reason Stop Dose Admin Acetaminophen 650 mg 11/24/20 10:09 12/01/20 06:57 Acetaminophen 325 Mg Tablet PO 650 mg Q6H PRN Administration Headache/Pain Mild Scale (1-3) Al Hydroxide/Mg Hydroxide 30 ml 11/24/20 10:09 Magnesium Hydrox/Alum Hydrox 30 Ml Oral.Susp PO Q6H PRN Heartburn/Nausea Amoxicillin/Clavulanate Potassium 875 mg 12/02/20 11:00 12/04/20 11:13 Amoxicillin/Potassium Clav 875 Mg Tablet PO 12/12/20 10:59 875 mg Q12H FRANCIS Administration Baclofen 10 mg 11/24/20 14:13 12/01/20 06:57 Baclofen 10 Mg Tablet PO 10 mg BID PRN Administration muscle spasms Benzocaine 1 appl 12/04/20 11:46 Benzocaine 10 % Oral Gel 9 Gm Tube MUCOUS MEM QID PRN tooth/gum pain Protocol Bupropion HCl 300 mg 11/23/20 09:00 12/04/20 09:33 Bupropion Hcl Xl 300 Mg Tab.Er.24h PO 300 mg DAILY FRANCIS Administration Clonidine HCl 0.1 mg 11/23/20 09:00 12/04/20 14:22 Clonidine Hcl 0.1 Mg Tablet PO 0.1 mg TID FRANCIS Administration Protocol Diazepam 5 mg 12/02/20 11:06 12/04/20 11:14 Diazepam 5 Mg Tablet PO 5 mg Q8H PRN Administration anxiety/restlessness Docusate Sodium 100 mg 11/23/20 09:00 12/04/20 09:33 Docusate Sodium 100 Mg Capsule PO 100 mg BID FRANCIS Administration Doxepin HCl 50 mg 11/23/20 21:00 12/03/20 21:46 Doxepin Hcl 25 Mg Capsule PO 50 mg BEDTIME FRANCIS Administration Gabapentin 800 mg 12/04/20 15:00 12/04/20 14:42 Gabapentin 400 Mg Capsule PO 800 mg TID FRANCIS Administration Hydroxyzine HCl 50 mg 11/23/20 09:00 12/04/20 14:22 Hydroxyzine Hcl 50 Mg Tablet PO 50 mg TID FRANCIS Administration Hydroxyzine HCl 25 mg 11/24/20 10:09 11/30/20 00:35 Hydroxyzine Hcl 25 Mg Tablet PO 25 mg BEDTIME PRN Administration Anxiety Ibuprofen 800 mg 11/23/20 09:00 12/04/20 14:21 Ibuprofen 800 Mg Tablet PO 800 mg TID FRANCIS Administration Loperamide HCl 2 mg 11/24/20 14:13 Loperamide Hcl 2 Mg Capsule PO Q4H PRN Loose Stool Magnesium Hydroxide 30 ml 11/24/20 10:09 Milk Of Magnesia 30 Ml Oral.Susp PO DAILY PRN Constipation Melatonin 3 mg 11/23/20 21:00 12/03/20 21:46 Melatonin 3 Mg Tablet PO 3 mg BEDTIME FRANCIS Administration Methadone HCl 40 mg 11/28/20 10:00 12/04/20 09:32 Methadone Hcl 1 Mg/0.1 Ml Oral.Conc PO 40 mg DAILY FRANCIS Administration Nicotine Polacrilex 2 mg 11/23/20 08:16 Nicotine Polacrilex 2 Mg Gum BUCCAL Q2H PRN nicotine cravings Ondansetron HCl 4 mg 11/25/20 09:46 Ondansetron Odt 4 Mg Tab.Rapdis TRANSLINGU Q6H PRN Vomiting Quetiapine Fumarate 50 mg 11/24/20 14:15 12/03/20 21:46 Quetiapine Fumarate 50 Mg Tablet PO 50 mg Q6H PRN Administration agitation Trazodone HCl 50 mg 11/24/20 10:09 12/02/20 21:42 Trazodone Hcl 50 Mg Tablet PO 50 mg BEDTIME PRN Administration Insomnia Allergies Allergies Allergy/AdvReac Type Severity Reaction Status Date / Time codeine [Codeine] Allergy Unknown N/A Verified 05/31/20 15:01 Assessment & Plan Assessment & Plan (1) Opioid use disorder: Status: Acute Code(s): F11.99 - Opioid use, unspecified with unspecified opioid-induced disorder Assessment and Plan: started on methadone MAT (2) MDD (major depressive disorder), recurrent episode, severe: Qualifiers: Psychotic features: with psychotic features Qualified Code(s): F33.3 - Major depressive disorder, recurrent, severe with psychotic symptoms Status: Acute Code(s): F33.2 - Major depressive disorder, recurrent severe without psychotic features Assessment and Plan: Pt on multiple medications- will simplify list. consider d/c remeron, olanzapine. Pt reports clonidine and gabapentin helpful. - Add diazepam 5mg q8hrs prn anxiety- PT UNDERSTANDS HE WILL NOT BE DISCHARGED ON THIS MEDICATION, ONLY WHILE IN UNIT GIVEN CONCERNS OF INCREASED RISK OF ACCIDENTAL FATAL OVERDOSE WITH OPIOIDS AND RISKS OF MISUSE OR ABUSE. 12/04/20: Discussed medications and utilizing gabapentin ie increasing dose to 800 mg 3 times per day. 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 Appeared to show understanding and in agreement with plan (3) Hepatitis C antibody positive in blood: Status: Acute Code(s): R76.8 - Other specified abnormal immunological findings in serum (4) Tooth infection: Status: Acute Code(s): K04.7 - Periapical abscess without sinus Assessment and Plan: - Started on 12/02/2020- Augmentin 875mg po q12h x 10 days ---> Needs to be seen by dentist. Greater than 50% of the session was spent on counseling and/or coordination of care Reason for contiued inpatient stay Substantial Risk for: harm to self
[2020-12-04] MEDS: Doxepin HCl 25 MG CAPSULE 50 MG PO (21:39)
[2020-12-04 21:40] VITALS: BP 125/84; PULSE 90
[2020-12-04] MEDS: QUEtiapine Fumarate 50 MG TABLET PO (21:40)
[2020-12-04] MEDS: Melatonin 3 MG TABLET PO (21:40)
[2020-12-04 21:44] VITALS: TEMP 36.5
[2020-12-05 06:00] VITALS: BP 118/80; PULSE 75; RESP 17; TEMP 36.4; O2SAT 94
[2020-12-05 08:06] VITALS: BP 118/80; PULSE 75
[2020-12-05] MEDS: hydrOXYzine HCL 50 MG TABLET PO ×3 (08:06→20:42)
[2020-12-05] MEDS: Gabapentin 400 MG CAPSULE 800 MG PO ×3 (08:06→20:40)
[2020-12-05] MEDS: cloNIDine HCL 0.1 MG TABLET PO ×3 (08:06→20:41)
[2020-12-05] MEDS: Ibuprofen 800 MG TABLET PO ×3 (08:06→20:39)
[2020-12-05] MEDS: Docusate Sodium 100 MG CAPSULE PO ×2 (08:06→20:41)
[2020-12-05] MEDS: buPROPion HCl XL 300 MG TAB.ER.24H PO (08:07)
[2020-12-05] MEDS: Amoxicillin/Potassium Clav 875 MG TABLET PO ×2 (11:08→23:53)
[2020-12-05] MEDS: diazePAM 5 MG TABLET PO ×2 (11:08→18:53)
[2020-12-05] MEDS: Acetaminophen 325 MG TABLET 650 MG PO ×2 (11:08→18:53)
--- NOTE | 2020-12-05 11:55 | HO.PSYCHPN ---
Subjective Subjective Date of Service: 12/05/20 Reason For Visit: SI Interim History: Dionisio reports feeling more irritable, hopeless, these past few days. He does admit to some craving and battling to continue substance use treatment. He reports fair sleep. Some anxiety at times, mostly in room, not interactive with peers. He denies SI/HI. He denies VH/AH. Review of Systems Review of Systems unremarkable Constitutional: Reports as per HPI Cardiovascular: Denies chest pain, Denies rapid heart rate, Denies lightheadedness and Denies dyspnea Respiratory: Denies dyspnea Reports behavioral changes Psychiatric: Reports abnormal sleep pattern, Reports anxiety, Reports behavioral changes, Reports change in appetite, Reports depression, Reports difficulty concentrating, Reports hopelessness, Reports irritability, Reports mood swings, Reports paranoia and Reports suicidal ideation Mental Status Exam Mental Status Exam Narrative: Appearance: MO casually groomed, improved hygiene, in NAD Behavior: cooperative Psychomotor: no agitation or retardation noted Speech: clear, normal rate/rhythm/volume, spontaneous TP: linear TC: no signs of psychosis, anxious, some cravings. Mood: anxious Affect: blunted SI:denies HI:denies AH/VH:denies Delusions:denies Insight/judgment: improving Memory/cog: alert, oriented x 3. grossly intact to conversational testing. Diagnostics Vital Signs (24Hr): Vital Signs - 24 hr 12/04/20 21:40 12/04/20 21:44 12/05/20 06:00 Temperature 97.7 F 97.6 F Pulse Rate 90 75 Respiratory Rate 17 Blood Pressure 125/84 118/80 Pulse Oximetry 94 12/05/20 08:06 Temperature Pulse Rate 75 Respiratory Rate Blood Pressure 118/80 Pulse Oximetry Body Mass Index 35.9 Labs Results: 11/24/20 10:19 11/24/20 10:19 Medications Medications Current Medications Generic Name Dose Route Start Last Admin Trade Name Freq PRN Reason Stop Dose Admin Acetaminophen 650 mg 11/24/20 10:09 12/05/20 11:08 Acetaminophen 325 Mg Tablet PO 650 mg Q6H PRN Administration Headache/Pain Mild Scale (1-3) Al Hydroxide/Mg Hydroxide 30 ml 11/24/20 10:09 Magnesium Hydrox/Alum Hydrox 30 Ml Oral.Susp PO Q6H PRN Heartburn/Nausea Amoxicillin/Clavulanate Potassium 875 mg 12/02/20 11:00 12/05/20 11:08 Amoxicillin/Potassium Clav 875 Mg Tablet PO 12/12/20 10:59 875 mg Q12H FRANCIS Administration Baclofen 10 mg 11/24/20 14:13 12/01/20 06:57 Baclofen 10 Mg Tablet PO 10 mg BID PRN Administration muscle spasms Benzocaine 1 appl 12/04/20 11:46 Benzocaine 10 % Oral Gel 9 Gm Tube MUCOUS MEM QID PRN tooth/gum pain Protocol Bupropion HCl 300 mg 11/23/20 09:00 12/05/20 08:07 Bupropion Hcl Xl 300 Mg Tab.Er.24h PO 300 mg DAILY FRANCIS Administration Clonidine HCl 0.1 mg 11/23/20 09:00 12/05/20 08:06 Clonidine Hcl 0.1 Mg Tablet PO 0.1 mg TID FRANCIS Administration Protocol Diazepam 5 mg 12/02/20 11:06 12/05/20 11:08 Diazepam 5 Mg Tablet PO 5 mg Q8H PRN Administration anxiety/restlessness Docusate Sodium 100 mg 11/23/20 09:00 12/05/20 08:06 Docusate Sodium 100 Mg Capsule PO 100 mg BID FRANCIS Administration Doxepin HCl 50 mg 11/23/20 21:00 12/04/20 21:39 Doxepin Hcl 25 Mg Capsule PO 50 mg BEDTIME FRANCIS Administration Gabapentin 800 mg 12/04/20 15:00 12/05/20 08:06 Gabapentin 400 Mg Capsule PO 800 mg TID FRANCIS Administration Hydroxyzine HCl 50 mg 11/23/20 09:00 12/05/20 08:06 Hydroxyzine Hcl 50 Mg Tablet PO 50 mg TID FRANCIS Administration Hydroxyzine HCl 25 mg 11/24/20 10:09 11/30/20 00:35 Hydroxyzine Hcl 25 Mg Tablet PO 25 mg BEDTIME PRN Administration Anxiety Ibuprofen 800 mg 11/23/20 09:00 12/05/20 08:06 Ibuprofen 800 Mg Tablet PO 800 mg TID FRANCIS Administration Loperamide HCl 2 mg 11/24/20 14:13 Loperamide Hcl 2 Mg Capsule PO Q4H PRN Loose Stool Magnesium Hydroxide 30 ml 11/24/20 10:09 Milk Of Magnesia 30 Ml Oral.Susp PO DAILY PRN Constipation Melatonin 3 mg 11/23/20 21:00 12/04/20 21:40 Melatonin 3 Mg Tablet PO 3 mg BEDTIME FRANCIS Administration Methadone HCl 40 mg 11/28/20 10:00 12/05/20 08:07 Methadone Hcl 1 Mg/0.1 Ml Oral.Conc PO 40 mg DAILY FRANCIS Administration Nicotine Polacrilex 2 mg 11/23/20 08:16 Nicotine Polacrilex 2 Mg Gum BUCCAL Q2H PRN nicotine cravings Ondansetron HCl 4 mg 11/25/20 09:46 Ondansetron Odt 4 Mg Tab.Rapdis TRANSLINGU Q6H PRN Vomiting Quetiapine Fumarate 50 mg 11/24/20 14:15 12/04/20 21:40 Quetiapine Fumarate 50 Mg Tablet PO 50 mg Q6H PRN Administration agitation Trazodone HCl 50 mg 11/24/20 10:09 12/02/20 21:42 Trazodone Hcl 50 Mg Tablet PO 50 mg BEDTIME PRN Administration Insomnia Allergies Allergies Allergy/AdvReac Type Severity Reaction Status Date / Time codeine [Codeine] Allergy Unknown N/A Verified 05/31/20 15:01 Assessment & Plan Assessment & Plan (1) Opioid use disorder: Status: Acute Code(s): F11.99 - Opioid use, unspecified with unspecified opioid-induced disorder Assessment and Plan: started on methadone MAT (2) MDD (major depressive disorder), recurrent episode, severe: Qualifiers: Psychotic features: with psychotic features Qualified Code(s): F33.3 - Major depressive disorder, recurrent, severe with psychotic symptoms Status: Acute Code(s): F33.2 - Major depressive disorder, recurrent severe without psychotic features Assessment and Plan: Pt on multiple medications- will simplify list. consider d/c remeron, olanzapine. Pt reports clonidine and gabapentin helpful. - Add diazepam 5mg q8hrs prn anxiety- PT UNDERSTANDS HE WILL NOT BE DISCHARGED ON THIS MEDICATION, ONLY WHILE IN UNIT GIVEN CONCERNS OF INCREASED RISK OF ACCIDENTAL FATAL OVERDOSE WITH OPIOIDS AND RISKS OF MISUSE OR ABUSE. (3) Hepatitis C antibody positive in blood: Status: Acute Code(s): R76.8 - Other specified abnormal immunological findings in serum (4) Tooth infection: Status: Acute Code(s): K04.7 - Periapical abscess without sinus Assessment and Plan: - Started on 12/02/2020- Augmentin 875mg po q12h x 10 days ---> Needs to be seen by dentist. Greater than 50% of the session was spent on counseling and/or coordination of care Reason for contiued inpatient stay Substantial Risk for: harm to self
[2020-12-05 18:00] VITALS: BP 118/75; PULSE 75; TEMP 36.4; O2SAT 94
[2020-12-05] MEDS: Doxepin HCl 25 MG CAPSULE 50 MG PO (20:39)
[2020-12-05] MEDS: Melatonin 3 MG TABLET PO (20:42)
[2020-12-05] MEDS: QUEtiapine Fumarate 50 MG TABLET PO (20:43)
[2020-12-06 06:00] VITALS: BP 122/67; PULSE 95; RESP 18; TEMP 36.3; O2SAT 96
[2020-12-06] MEDS: Ibuprofen 800 MG TABLET PO ×3 (08:33→21:18)
[2020-12-06] MEDS: Gabapentin 400 MG CAPSULE 800 MG PO ×3 (08:33→21:18)
[2020-12-06 08:34] VITALS: BP 122/67; PULSE 95
[2020-12-06] MEDS: Amoxicillin/Potassium Clav 875 MG TABLET PO ×2 (08:34→21:17)
[2020-12-06] MEDS: cloNIDine HCL 0.1 MG TABLET PO ×3 (08:34→21:16)
[2020-12-06] MEDS: hydrOXYzine HCL 50 MG TABLET PO ×3 (08:37→21:19)
[2020-12-06] MEDS: Docusate Sodium 100 MG CAPSULE PO (08:37)
[2020-12-06] MEDS: buPROPion HCl XL 300 MG TAB.ER.24H PO (08:37)
--- NOTE | 2020-12-06 09:13 | HO.PSYCHPN ---
Subjective Subjective Date of Service: 12/06/20 Reason For Visit: SI Interim History: Dionisio reports he is struggling with anxiety and irritability at times. He does admit some degree of cravings. He states he is trying to stay positive to get through this period of time while he is connected to [facility] program. He denies SI/HI. He has been mostly in room, encouraged to attend groups. No behavioral concerns. Review of Systems Review of Systems unremarkable Constitutional: Reports as per HPI Cardiovascular: Denies chest pain, Denies rapid heart rate, Denies lightheadedness and Denies dyspnea Respiratory: Denies dyspnea Reports behavioral changes Psychiatric: Reports abnormal sleep pattern, Reports anxiety, Reports behavioral changes, Reports change in appetite, Reports depression, Reports difficulty concentrating, Reports hopelessness, Reports irritability, Reports mood swings, Reports paranoia and Reports suicidal ideation Mental Status Exam Mental Status Exam Narrative: Appearance: MO casually groomed, improved hygiene, in NAD Behavior: cooperative Psychomotor: no agitation or retardation noted Speech: clear, normal rate/rhythm/volume, spontaneous TP: linear TC: no signs of psychosis, anxious, some cravings. Mood: anxious Affect: blunted SI:denies HI:denies AH/VH:denies- no signs of responding to internal stimuli. Delusions:denies Insight/judgment: improving Memory/cog: alert, oriented x 3. grossly intact to conversational testing. Diagnostics Vital Signs (24Hr): Vital Signs - 24 hr 12/05/20 18:00 12/06/20 08:34 Temperature 97.6 F Pulse Rate 75 95 Blood Pressure 118/75 122/67 Pulse Oximetry 94 Body Mass Index 35.9 Labs Results: 11/24/20 10:19 11/24/20 10:19 Medications Medications Current Medications Generic Name Dose Route Start Last Admin Trade Name Freq PRN Reason Stop Dose Admin Acetaminophen 650 mg 11/24/20 10:09 12/05/20 18:53 Acetaminophen 325 Mg Tablet PO 650 mg Q6H PRN Administration Headache/Pain Mild Scale (1-3) Al Hydroxide/Mg Hydroxide 30 ml 11/24/20 10:09 Magnesium Hydrox/Alum Hydrox 30 Ml Oral.Susp PO Q6H PRN Heartburn/Nausea Amoxicillin/Clavulanate Potassium 875 mg 12/06/20 09:00 12/06/20 08:34 Amoxicillin/Potassium Clav 875 Mg Tablet PO 12/12/20 08:59 875 mg Q12H FRANCIS Administration Baclofen 10 mg 11/24/20 14:13 12/01/20 06:57 Baclofen 10 Mg Tablet PO 10 mg BID PRN Administration muscle spasms Benzocaine 1 appl 12/04/20 11:46 Benzocaine 10 % Oral Gel 9 Gm Tube MUCOUS MEM QID PRN tooth/gum pain Protocol Bupropion HCl 300 mg 11/23/20 09:00 12/06/20 08:37 Bupropion Hcl Xl 300 Mg Tab.Er.24h PO 300 mg DAILY FRANCIS Administration Clonidine HCl 0.1 mg 11/23/20 09:00 12/06/20 08:34 Clonidine Hcl 0.1 Mg Tablet PO 0.1 mg TID FRANCIS Administration Protocol Diazepam 5 mg 12/02/20 11:06 12/05/20 18:53 Diazepam 5 Mg Tablet PO 5 mg Q8H PRN Administration anxiety/restlessness Docusate Sodium 100 mg 11/23/20 09:00 12/06/20 08:37 Docusate Sodium 100 Mg Capsule PO 100 mg BID FRANCIS Administration Doxepin HCl 50 mg 11/23/20 21:00 12/05/20 20:39 Doxepin Hcl 25 Mg Capsule PO 50 mg BEDTIME FRANCIS Administration Gabapentin 800 mg 12/04/20 15:00 12/06/20 08:33 Gabapentin 400 Mg Capsule PO 800 mg TID FRANCIS Administration Hydroxyzine HCl 50 mg 11/23/20 09:00 12/06/20 08:37 Hydroxyzine Hcl 50 Mg Tablet PO 50 mg TID FRANCIS Administration Hydroxyzine HCl 25 mg 11/24/20 10:09 11/30/20 00:35 Hydroxyzine Hcl 25 Mg Tablet PO 25 mg BEDTIME PRN Administration Anxiety Ibuprofen 800 mg 11/23/20 09:00 12/06/20 08:33 Ibuprofen 800 Mg Tablet PO 800 mg TID FRANCIS Administration Loperamide HCl 2 mg 11/24/20 14:13 Loperamide Hcl 2 Mg Capsule PO Q4H PRN Loose Stool Magnesium Hydroxide 30 ml 11/24/20 10:09 Milk Of Magnesia 30 Ml Oral.Susp PO DAILY PRN Constipation Melatonin 3 mg 11/23/20 21:00 12/05/20 20:42 Melatonin 3 Mg Tablet PO 3 mg BEDTIME FRANCIS Administration Methadone HCl 40 mg 11/28/20 10:00 12/05/20 08:07 Methadone Hcl 1 Mg/0.1 Ml Oral.Conc PO 40 mg DAILY FRANCIS Administration Nicotine Polacrilex 2 mg 11/23/20 08:16 Nicotine Polacrilex 2 Mg Gum BUCCAL Q2H PRN nicotine cravings Ondansetron HCl 4 mg 11/25/20 09:46 Ondansetron Odt 4 Mg Tab.Rapdis TRANSLINGU Q6H PRN Vomiting Quetiapine Fumarate 50 mg 11/24/20 14:15 12/05/20 20:43 Quetiapine Fumarate 50 Mg Tablet PO 50 mg Q6H PRN Administration agitation Trazodone HCl 50 mg 11/24/20 10:09 12/02/20 21:42 Trazodone Hcl 50 Mg Tablet PO 50 mg BEDTIME PRN Administration Insomnia Allergies Allergies Allergy/AdvReac Type Severity Reaction Status Date / Time codeine [Codeine] Allergy Unknown N/A Verified 05/31/20 15:01 Assessment & Plan Assessment & Plan (1) Opioid use disorder: Status: Acute Code(s): F11.99 - Opioid use, unspecified with unspecified opioid-induced disorder Assessment and Plan: started on methadone MAT (2) MDD (major depressive disorder), recurrent episode, severe: Qualifiers: Psychotic features: with psychotic features Qualified Code(s): F33.3 - Major depressive disorder, recurrent, severe with psychotic symptoms Status: Acute Code(s): F33.2 - Major depressive disorder, recurrent severe without psychotic features Assessment and Plan: Pt on multiple medications- will simplify list. consider d/c remeron, olanzapine. Pt reports clonidine and gabapentin helpful. - Add diazepam 5mg q8hrs prn anxiety- PT UNDERSTANDS HE WILL NOT BE DISCHARGED ON THIS MEDICATION, ONLY WHILE IN UNIT GIVEN CONCERNS OF INCREASED RISK OF ACCIDENTAL FATAL OVERDOSE WITH OPIOIDS AND RISKS OF MISUSE OR ABUSE. (3) Hepatitis C antibody positive in blood: Status: Acute Code(s): R76.8 - Other specified abnormal immunological findings in serum (4) Tooth infection: Status: Acute Code(s): K04.7 - Periapical abscess without sinus Assessment and Plan: - Started on 12/02/2020- Augmentin 875mg po q12h x 10 days ---> Needs to be seen by dentist. Greater than 50% of the session was spent on counseling and/or coordination of care Reason for contiued inpatient stay Substantial Risk for: harm to self
[2020-12-06] MEDS: Acetaminophen 325 MG TABLET 650 MG PO (12:06)
[2020-12-06] MEDS: QUEtiapine Fumarate 50 MG TABLET PO ×2 (12:08→21:19)
[2020-12-06] MEDS: diazePAM 5 MG TABLET PO ×2 (12:08→21:18)
[2020-12-06 14:59] VITALS: BP 131/74; PULSE 74
[2020-12-06 21:16] VITALS: BP 118/69; PULSE 88
[2020-12-06] MEDS: Melatonin 3 MG TABLET PO (21:17)
[2020-12-06] MEDS: Doxepin HCl 25 MG CAPSULE 50 MG PO (21:17)
[2020-12-06 22:38] VITALS: BP 118/69; PULSE 86; TEMP 36.9; O2SAT 97
[2020-12-07] MEDS: Acetaminophen 325 MG TABLET 650 MG PO (02:52)
[2020-12-07] MEDS: Baclofen 10 MG TABLET PO (02:53)
[2020-12-07] MEDS: traZODone HCL 50 MG TABLET PO (02:53)
[2020-12-07 06:00] VITALS: BP 104/71; PULSE 92; RESP 16; TEMP 36.4; O2SAT 97
[2020-12-07] MEDS: QUEtiapine Fumarate 50 MG TABLET PO ×3 (06:38→22:52)
[2020-12-07] MEDS: diazePAM 5 MG TABLET PO ×3 (06:38→22:52)
--- NOTE | 2020-12-07 06:45 | PC.NURSE ---
acting out event-pt became frustrated when roommate was coming in and out of room as well s staff, he threw his waste paper basket and yelled. was able to calm down after talking with t/w and requested prn. medication given.
--- NOTE | 2020-12-07 08:15 | HO.PSYCHPN ---
Subjective Subjective Date of Service: 12/08/20 Reason For Visit: SI Interim History: Dionisio reports increased anxiety, irritability. He reports trying hard not to lash out on staff or peers. He admits to some cravings but also reports he thinks he is being triggered by past trauma. He denies VH/AH. He denies SI/HI. He reports at times feeling hopeless as he thinks he may relapse. We discussed increasing seroquel prn for anxiety and considering scheduling it. Review of Systems Review of Systems unremarkable Constitutional: Reports as per HPI Cardiovascular: Denies chest pain, Denies rapid heart rate, Denies lightheadedness and Denies dyspnea Respiratory: Denies dyspnea Reports behavioral changes Psychiatric: Reports abnormal sleep pattern, Reports anxiety, Reports behavioral changes, Reports change in appetite, Reports depression, Reports difficulty concentrating, Reports hopelessness, Reports irritability, Reports mood swings, Reports paranoia and Reports suicidal ideation Mental Status Exam Mental Status Exam Narrative: Appearance: MO casually groomed, improved hygiene, in NAD Behavior: cooperative Psychomotor: no agitation or retardation noted Speech: clear, normal rate/rhythm/volume, spontaneous TP: linear TC: no signs of psychosis, anxious, some cravings. Mood: anxious Affect: blunted SI:denies HI:denies AH/VH:denies- no signs of responding to internal stimuli. Delusions:denies Insight/judgment: improving Memory/cog: alert, oriented x 3. grossly intact to conversational testing. Diagnostics Vital Signs (24Hr): Vital Signs - 24 hr 12/07/20 10:03 12/07/20 14:27 12/07/20 20:59 Temperature Pulse Rate 92 104 H 96 Blood Pressure 104/71 123/82 116/60 Pulse Oximetry 12/07/20 21:06 Temperature 96.4 F L Pulse Rate 96 Blood Pressure 116/60 Pulse Oximetry 96 Body Mass Index 35.9 Labs Results: 11/24/20 10:19 11/24/20 10:19 Medications Medications Current Medications Generic Name Dose Route Start Last Admin Trade Name Freq PRN Reason Stop Dose Admin Acetaminophen 650 mg 11/24/20 10:09 12/07/20 02:52 Acetaminophen 325 Mg Tablet PO 650 mg Q6H PRN Administration Headache/Pain Mild Scale (1-3) Al Hydroxide/Mg Hydroxide 30 ml 11/24/20 10:09 Magnesium Hydrox/Alum Hydrox 30 Ml Oral.Susp PO Q6H PRN Heartburn/Nausea Amoxicillin/Clavulanate Potassium 875 mg 12/06/20 09:00 12/07/20 20:58 Amoxicillin/Potassium Clav 875 Mg Tablet PO 12/12/20 08:59 875 mg Q12H FRANCIS Administration Baclofen 10 mg 11/24/20 14:13 12/07/20 02:53 Baclofen 10 Mg Tablet PO 10 mg BID PRN Administration muscle spasms Benzocaine 1 appl 12/04/20 11:46 12/07/20 20:57 Benzocaine 10 % Oral Gel 9 Gm Tube MUCOUS MEM 1 appl QID PRN Administration tooth/gum pain Protocol Bupropion HCl 300 mg 11/23/20 09:00 12/07/20 09:57 Bupropion Hcl Xl 300 Mg Tab.Er.24h PO 300 mg DAILY FRANCIS Administration Clonidine HCl 0.1 mg 11/23/20 09:00 12/07/20 20:59 Clonidine Hcl 0.1 Mg Tablet PO 0.1 mg TID FRANCIS Administration Protocol Diazepam 5 mg 12/02/20 11:06 12/07/20 22:52 Diazepam 5 Mg Tablet PO 5 mg Q8H PRN Administration anxiety/restlessness Docusate Sodium 100 mg 11/23/20 09:00 12/07/20 21:01 Docusate Sodium 100 Mg Capsule PO Not Given BID FRANCIS Doxepin HCl 50 mg 11/23/20 21:00 12/07/20 21:00 Doxepin Hcl 25 Mg Capsule PO 50 mg BEDTIME FRANCIS Administration Gabapentin 800 mg 12/04/20 15:00 12/07/20 21:01 Gabapentin 400 Mg Capsule PO 800 mg TID FRANCIS Administration Hydroxyzine HCl 50 mg 11/23/20 09:00 12/07/20 21:00 Hydroxyzine Hcl 50 Mg Tablet PO 50 mg TID FRANCIS Administration Hydroxyzine HCl 25 mg 11/24/20 10:09 11/30/20 00:35 Hydroxyzine Hcl 25 Mg Tablet PO 25 mg BEDTIME PRN Administration Anxiety Ibuprofen 800 mg 11/23/20 09:00 12/07/20 20:58 Ibuprofen 800 Mg Tablet PO 800 mg TID FRANCIS Administration Loperamide HCl 2 mg 11/24/20 14:13 Loperamide Hcl 2 Mg Capsule PO Q4H PRN Loose Stool Magnesium Hydroxide 30 ml 11/24/20 10:09 Milk Of Magnesia 30 Ml Oral.Susp PO DAILY PRN Constipation Melatonin 3 mg 11/23/20 21:00 12/07/20 20:58 Melatonin 3 Mg Tablet PO 3 mg BEDTIME FRANCIS Administration Methadone HCl 40 mg 11/28/20 10:00 12/07/20 09:58 Methadone Hcl 1 Mg/0.1 Ml Oral.Conc PO 40 mg DAILY FRANCIS Administration Nicotine Polacrilex 2 mg 11/23/20 08:16 Nicotine Polacrilex 2 Mg Gum BUCCAL Q2H PRN nicotine cravings Ondansetron HCl 4 mg 11/25/20 09:46 Ondansetron Odt 4 Mg Tab.Rapdis TRANSLINGU Q6H PRN Vomiting Quetiapine Fumarate 100 mg 12/08/20 08:03 Quetiapine Fumarate 100 Mg Tablet PO Q6H PRN agitation/anxiety Trazodone HCl 50 mg 11/24/20 10:09 12/07/20 02:53 Trazodone Hcl 50 Mg Tablet PO 50 mg BEDTIME PRN Administration Insomnia Allergies Allergies Allergy/AdvReac Type Severity Reaction Status Date / Time codeine [Codeine] Allergy Unknown N/A Verified 05/31/20 15:01 Assessment & Plan Assessment & Plan (1) Opioid use disorder: Status: Acute Code(s): F11.99 - Opioid use, unspecified with unspecified opioid-induced disorder Assessment and Plan: started on methadone MAT (2) MDD (major depressive disorder), recurrent episode, severe: Qualifiers: Psychotic features: with psychotic features Qualified Code(s): F33.3 - Major depressive disorder, recurrent, severe with psychotic symptoms Status: Acute Code(s): F33.2 - Major depressive disorder, recurrent severe without psychotic features Assessment and Plan: Pt on multiple medications- will simplify list. consider d/c remeron, olanzapine. Pt reports clonidine and gabapentin helpful. - Add diazepam 5mg q8hrs prn anxiety- PT UNDERSTANDS HE WILL NOT BE DISCHARGED ON THIS MEDICATION, ONLY WHILE IN UNIT GIVEN CONCERNS OF INCREASED RISK OF ACCIDENTAL FATAL OVERDOSE WITH OPIOIDS AND RISKS OF MISUSE OR ABUSE. 1. INcrease seroquel to 100mg po q6hrs, prn agitation/anxiety- will schedule if pt finds it helpful. (3) Hepatitis C antibody positive in blood: Status: Acute Code(s): R76.8 - Other specified abnormal immunological findings in serum (4) Tooth infection: Status: Acute Code(s): K04.7 - Periapical abscess without sinus Assessment and Plan: - Started on 12/02/2020- Augmentin 875mg po q12h x 10 days ---> Needs to be seen by dentist. Greater than 50% of the session was spent on counseling and/or coordination of care Reason for contiued inpatient stay Substantial Risk for: harm to self
[2020-12-07] MEDS: Gabapentin 400 MG CAPSULE 800 MG PO ×3 (09:57→21:01)
[2020-12-07] MEDS: Amoxicillin/Potassium Clav 875 MG TABLET PO ×2 (09:57→20:58)
[2020-12-07] MEDS: buPROPion HCl XL 300 MG TAB.ER.24H PO (09:57)
[2020-12-07] MEDS: hydrOXYzine HCL 50 MG TABLET PO ×3 (09:57→21:00)
[2020-12-07] MEDS: Docusate Sodium 100 MG CAPSULE PO (09:58)
[2020-12-07] MEDS: Ibuprofen 800 MG TABLET PO ×3 (09:58→20:58)
[2020-12-07 10:03] VITALS: BP 104/71; PULSE 92
[2020-12-07] MEDS: cloNIDine HCL 0.1 MG TABLET PO ×3 (10:03→20:59)
[2020-12-07 14:27] VITALS: BP 123/82; PULSE 104
[2020-12-07] MEDS: Melatonin 3 MG TABLET PO (20:58)
[2020-12-07 20:59] VITALS: BP 116/60; PULSE 96
[2020-12-07] MEDS: Doxepin HCl 25 MG CAPSULE 50 MG PO (21:00)
[2020-12-07 21:06] VITALS: BP 116/60; PULSE 96; TEMP 35.8; O2SAT 96
[2020-12-08 08:38] VITALS: BP 143/80; PULSE 88
[2020-12-08] MEDS: hydrOXYzine HCL 50 MG TABLET PO ×2 (08:38→14:13)
[2020-12-08] MEDS: Docusate Sodium 100 MG CAPSULE PO (08:38)
[2020-12-08] MEDS: Gabapentin 400 MG CAPSULE 800 MG PO ×2 (08:38→14:13)
[2020-12-08] MEDS: buPROPion HCl XL 300 MG TAB.ER.24H PO (08:38)
[2020-12-08] MEDS: cloNIDine HCL 0.1 MG TABLET PO ×2 (08:38→14:13)
[2020-12-08] MEDS: QUEtiapine Fumarate 100 MG TABLET PO (08:38)
[2020-12-08] MEDS: Ibuprofen 800 MG TABLET PO ×2 (08:38→14:13)
[2020-12-08] MEDS: Amoxicillin/Potassium Clav 875 MG TABLET PO (08:38)
[2020-12-08] MEDS: diazePAM 5 MG TABLET PO (09:03)
[2020-12-08 09:18] VITALS: BP 143/80; PULSE 88; RESP 18; TEMP 36.5; O2SAT 95
[2020-12-08] MEDS: Acetaminophen 325 MG TABLET 650 MG PO (12:56)
[2020-12-08] MEDS: Magnesium Hydrox/Alum Hydrox 30 ML ORAL.SUSP PO (12:56)
--- NOTE | 2020-12-08 13:51 | P.DS_ITS ---
DS: Providers Provider Date of Service: 12/08/20 <Tomalala Roldansara - Last Filed: 01/10/21 07:35> Date of admission: 11/24/20 10:09 <Tomalala Roldanjohnnysj - Last Filed: 01/10/21 07:35> Primary care physician: [facility] <Toma Roldansara - Last Filed: 01/10/21 07:35> DS: Diagnosis Discharge Diagnosis (1) Opioid use disorder: Status: Acute <Tomalala Roldanjohnny - Last Filed: 01/10/21 07:35> (2) MDD (major depressive disorder), recurrent episode, severe: Status: Acute <Tomalala Roldanjohnny - Last Filed: 01/10/21 07:35> (3) Hepatitis C antibody positive in blood: Status: Acute <Toma Roldanjohnny Last Filed: 01/10/21 07:35> (4) Tooth infection: Status: Deleted <Toma Roldanjohnny Last Filed: 01/10/21 07:35> DS: Medications Discharge Medications Home Medications: Previous Rx's Medication Instructions Recorded acetaminophen 650 mg PO Q6H PRN #30 tab 12/08/20 amoxicillin-pot clavulanate 875 mg PO Q12H #8 tab 12/08/20 bupropion HCl 300 mg PO DAILY #30 tab 12/08/20 clonidine HCl 0.1 mg PO TID #30 tab 12/08/20 docusate sodium 100 mg PO BID #60 cap 12/08/20 doxepin 50 mg PO BEDTIME #30 cap 12/08/20 gabapentin 800 mg PO TID #90 tab 12/08/20 ibuprofen 800 mg PO TID #30 tab 12/08/20 quetiapine 100 mg PO Q6H PRN #90 tab 12/08/20 trazodone 50 mg PO BEDTIME PRN #30 tab 12/08/20 <Tomalala Roldansara - Last Filed: 01/10/21 07:35> Discharge Plan Discharge Patient Disposition: Home, Self-Care <Tomalala Roldansara - Last Filed: 01/10/21 07:35> Discharge Diagnosis: MDD, recurrent, moderate OPioid Use Disorder <Tmoa Beyer - Last Filed: 01/10/21 07:35> MDD, recurrent, moderate OPioid Use Disorder <Marcel Dan MD - Last Filed: 01/16/21 10:27> Referrals: [facility] [Primary Care Provider] - 1 Week <Toma Beyer - Last Filed: 01/10/21 07:35> Discharge Medications: New ibuprofen 800 mg Tablet 800 mg PO TID Qty: 30 RF: 0 doxepin 25 mg Capsule 50 mg PO BEDTIME Qty: 30 RF: 0 amoxicillin-pot clavulanate 875-125 mg Tablet 875 mg PO Q12H Qty: 8 RF: 0 bupropion HCl 300 mg Tablet Extended Release 24 Hr 300 mg PO DAILY Qty: 30 RF: 0 gabapentin 800 mg tablet 800 mg PO TID Qty: 90 RF: 0 trazodone 50 mg Tablet 50 mg PO BEDTIME PRN (Reason: Insomnia) Qty: 30 RF: 0 quetiapine 100 mg Tablet 100 mg PO Q6H PRN (Reason: agitation/anxiety) Qty: 90 RF: 0 docusate sodium 100 mg Capsule 100 mg PO BID Qty: 60 RF: 0 Discontinued bupropion HCl 300 mg tablet extended release 24 hr 300 mg PO QAM RF: 0 nicotine (polacrilex) 2 mg gum 2 mg buccal Q2H PRN (Reason: nicotine cravings) 14 Days Qty: 100 RF: 0 ibuprofen 800 mg tablet 1 tab PO TID RF: 0 gabapentin 400 mg capsule 1 cap PO TID RF: 0 hydroxyzine pamoate 50 mg capsule 1 cap PO TID RF: 0 melatonin 3 mg tablet 1 tab PO BEDTIME RF: 0 docusate sodium [Stool Softener] 100 mg capsule 1 cap PO BID RF: 0 mirtazapine 45 mg tablet 1 tab PO BEDTIME RF: 0 olanzapine 15 mg tablet 1 tab PO BEDTIME RF: 0 doxepin 50 mg capsule 1 cap PO BEDTIME RF: 0 clonidine HCl 0.1 mg tablet 1 tab PO TID RF: 0 quetiapine 50 mg tablet 1 tab PO BEDTIME RF: 0 No Action clonidine HCl 0.1 mg tablet 0.1 mg PO TID 30 Days Qty: 90 RF: 3 acetaminophen 325 mg tablet 650 mg PO Q6H 30 Days Qty: 240 RF: 0 <Toma Beyer - Last Filed: 01/10/21 07:35> Discharge Orders: Discharge Order (Routine); Ordered 12/08/20 Ordered By: Toma Beyer <Toma Beyer - Last Filed: 01/10/21 07:35> Diet: regular diet <Toma Beyer - Last Filed: 01/10/21 07:35> regular diet <Marcel Dan MD - Last Filed: 01/16/21 10:27> Activity on Discharge: As tolerated <Toma Beyer - Last Filed: 01/10/21 07:35> As tolerated <Marcel Dan MD - Last Filed: 01/16/21 10:27> Stand Alone Forms: Patient Portal Discharge page, Community Support <Toma Beyer - Last Filed: 01/10/21 07:35> Care Plan Goals: 1. Maintain stable mood 2. No SI/HI <Toma Beyer - Last Filed: 01/10/21 07:35> Health Concerns: 1. Follow up with PCP 2. Follow up with dentist <Toma Beyer - Last Filed: 01/10/21 07:35> Plan of Treatment: 1. Take medications as prescribed 2. Go to nearest ED or call 911 in event of emergency <Toma Beyer - Last Filed: 01/10/21 07:35> Assessment: Pt stable, no SI/HI. Some anxiety <Toma Beyer - Last Filed: 01/10/21 07:35> Discharge Date/Time: 12/08/20 14:32 <Toma Beyer - Last Filed: 01/10/21 07:35> Mental Status Exam Mental Status Exam Narrative: Appearance: MO casually groomed, improved hygiene, in NAD Behavior: cooperative Psychomotor: no agitation or retardation noted Speech: clear, normal rate/rhythm/volume, spontaneous TP: linear TC: no signs of psychosis, future oriented Mood: better Affect: brighter SI:denies HI:denies AH/VH:denies- no signs of responding to internal stimuli. Delusions:denies Insight/judgment: improving Memory/cog: alert, oriented x 3. grossly intact to conversational testing. <Toma Beyer - Last Filed: 01/10/21 07:35> DS: Summary Hospital Course Hospital Course: Mr. Jean is a 39 year-old male with hx of MDD and opioid use disorder who self presented to [facility] ED reporting increased depression, suicidal ideation with plan to either shoot himself or jump off the bridge in context of his children being in foster care and not having contact with them. Most recently, pt was at [facility], sober living program. He reports he left and relapsed. He is currently homeless. In the ED, his utox was positive for cocaine and opioids. Pertinent labs including CBC show leukopenia with elevated lymphocytes and low neutrophils. On the unit, pt minimally engaging in any conversation. He reported having withdrawal symptoms including sweating, muscle aches, increased anxiety and GI disturbances. When asked about suicidal ideation, he states I don't know. He declines to get up from bed, covered his face with blanket and stopped talking with this pt. He reports in the past he has been on methadone but not sure if he wants to be on it anymore. Past Psychiatric History: Inpatient: 01/2019; 02/2019 (unknown locations). Many detox admissions. OP: none currently, in past she was at [facility] On the unit, Mr. Jean presented as withdrawn, reported feeling hopeless/helpless, very anxious. Mr. Jean denied suicidal ideation thro ughout this hospital stay. After discussing risks, benefits and alternative treatment options, pt had been on several medications. He denied hx of olanzapine but has used olanzapine for mood and anxiety. However, he reported significant weight gain. He reported wellbutrin had been beneficial for mood, therefore this medication was continued. He was continued on seroquel at bedtime and gabapentin for anxiety. His affect gradually presented as brighter. He reported less anxious mood, although did report some cravings to use opioid and cocaine. He continued to report motivation to continue substance use treatment at residential treatment center. There were no incidences of disruptive behaviors nor use of restrains. <Toma Beyer - Last Filed: 01/10/21 07:35> Time Spent with Patient Time attestation: Total time spent providing and/or coordinating discharge services: <Toma Beyer - Last Filed: 01/10/21 07:35>
[2020-12-08 14:13] VITALS: BP 128/92; PULSE 108
--- NOTE | 2020-12-08 14:32 | PC.NURSE ---
Pt aware and ready for discharge. PT D/C to the [facility]. PT denies SI/HI, brighter mood. Pt aware that follow up appointments will be made by the [facility]. PT belongings returned, ambulated off unit with steady gait.
== END 2020-12-08 14:32 | disposition home or self-care (01) | DRG 751 ==
LOC: HO.ED 03:55 → HO.PADLT16 11-24 10:57
PROVIDERS: Physician Assistant Medical; Admitting Provider Psychiatry & Neurology Psychiatry; Emergency Provider Emergency Medicine; Visit Provider Social Worker
DX: F33.2 Major depressive disorder, recurrent severe without psychotic features (principal); R45.851 Suicidal ideations; F11.20 Opioid dependence, uncomplicated; K04.7 Periapical abscess without sinus; Z20.822 Contact with and (suspected) exposure to COVID-19; Z88.5 Allergy status to narcotic agent; Z79.1 Long term (current) use of non-steroidal anti-inflammatories (NSAID); Z79.899 Other long term (current) drug therapy
CPT/HCPCS: 36415; 80053; 80061; 80307; 81001; 82607; 82746; 83036; 83735; 84439; 84443; 84484; 85025; 87635; 93005; 99285

== ENCOUNTER 2020-12-21 08:39 | Outpatient (REF) | payer OTHER, SELFPAY | END 2020-12-21 08:40 | disposition home or self-care (01) | LOC: HO.LAB 08:39 | PROVIDERS: PCP Physician Assistant; Visit Provider Internal Medicine | DX: Z20.822 Contact with and (suspected) exposure to COVID-19 (principal) | CPT/HCPCS: C9803; U0003; U0005 ==

== ENCOUNTER 2021-02-07 12:47 | Outpatient (REF) | payer OTHER, SELFPAY ==
[2021-02-07 14:01] LABS: Glucose Urine UA NEG (NEG); Leukocyte Esterase Urine NEG (NEG); Nitrite Urine NEG (NEG); Urine Blood NEG (NEG); Urine Ketones 5 MG/DL (NEG); Urine Protein TRACE MG/DL (NEG-TRACE)
[2021-02-07 14:05] LABS: Hemoglobin 14.8 g/dl (14.0-18.0); Mean Corpuscular HGB Conc 32.9 g/dl (31.0-36.0); Mean Corpuscular Hemoglobin 28.2 pg (27.0-33.0); Mean Corpuscular Volume 85.9 fL (80-98); Mean Platelet Volume 10.8 fL (9.4-12.4); Platelet Count 162 X10*3/uL (160-400); Red Blood Count 5.24 X10*6/uL (4.60-5.80); Red Cell Distribution Width 14.9 % (11.0-16.0); White Blood Count 5.2 X10*3/uL (4.8-10.8)
[2021-02-07 14:07] LABS: Appearance Urine CLEAR; Color Urine YELLOW
[2021-02-07 14:42] LABS: Prothrombin Time 11.5 SEC (9.9-13.0)
[2021-02-07 14:49] LABS: Alanine Aminotransferase 361 U/L (0-40); Albumin Level 4.2 g/dL (3.5-5.0); Alkaline Phosphatase 123 U/L (39-117); Anion Gap 13 (12-20); Aspartate Amino Transferase 123 U/L (5-37); Blood Urea Nitrogen 8 mg/dL (9-16); Calcium 9.9 mg/dL (8.4-10.2); Carbon Dioxide 30 mmol/L (22-29); Chloride 103 mmol/L (96-108); Estimated Glomerular Filt Rate > 60; Glucose Random 114 mg/dL (60-115); Potassium 4.6 mmol/L (3.3-5.1); Sodium 141 mmol/L (135-145); Total Protein 7.8 g/dL (6.5-8.0)
[2021-02-07 14:59] LABS: Bilirubin Direct < 0.2 mg/dL (0.0-0.5); Bilirubin Total 0.2 mg/dL (0.0-1.0)
[2021-02-08 13:37] LABS: HCV RNA PCR Qn 1060000 IU/mL (NOT DETECTED); HCV RNA PCR Qn 6.03 Log IU/mL (NOT DETECTED)
[2021-02-14 14:56] LABS: HCV Genotype LiPA 2
== END 2021-02-07 12:48 | disposition home or self-care (01) ==
LOC: HO.LAB 12:47
PROVIDERS: PCP Physician Assistant; Visit Provider Physician Assistant
DX: Z01.818 Encounter for other preprocedural examination (principal); R30.0 Dysuria; I10 Essential (primary) hypertension
CPT/HCPCS: 36415; 80048; 80076; 81003; 85027; 85610; 87522; 87902

== ENCOUNTER 2021-03-27 13:21 | Outpatient (REF) | payer OTHER, SELFPAY | END 2021-03-27 13:22 | disposition home or self-care (01) | LOC: HO.LAB 13:21 | PROVIDERS: PCP Physician Assistant; Referring Provider Physician Assistant; Visit Provider Nurse Practitioner | DX: Z13.89 Encounter for screening for other disorder (principal) ==

== ENCOUNTER 2021-03-30 11:13 | Outpatient (REF) | payer OTHER, SELFPAY ==
[2021-03-30 12:43] LABS: Prothrombin Time 11.6 SEC (9.9-13.0)
[2021-03-30 12:44] LABS: Hematocrit 47.1 % (42-52); Hemoglobin 15.4 g/dl (14.0-18.0); Mean Corpuscular HGB Conc 32.7 g/dl (31.0-36.0); Mean Corpuscular Hemoglobin 29.3 pg (27.0-33.0); Mean Corpuscular Volume 89.7 fL (80-98); Mean Platelet Volume 11.2 fL (9.4-12.4); Platelet Count 159 X10*3/uL (160-400); Red Blood Count 5.25 X10*6/uL (4.60-5.80); Red Cell Distribution Width 15.1 % (11.0-16.0); White Blood Count 5.1 X10*3/uL (4.8-10.8)
[2021-03-30 13:02] LABS: Anion Gap 11 (12-20); Blood Urea Nitrogen 8 mg/dL (9-16); Calcium 9.7 mg/dL (8.4-10.2); Carbon Dioxide 31 mmol/L (22-29); Chloride 103 mmol/L (96-108); Estimated Glomerular Filt Rate > 60; Gamma Glutamyl Transpeptidase 191 U/L (11-51); Glucose Random 96 mg/dL (60-115); Potassium 4.9 mmol/L (3.3-5.1); Sodium 140 mmol/L (135-145)
[2021-03-30 13:21] LABS: Ferritin 105 ng/mL (20-250)
[2021-03-31 03:37] LABS: HBsAGNum1 0.15 S/CO (0.00-0.99); HIV AB/AG Nonreactive (Nonreactive); HIV Num 1 0.15 S/CO (0.00-0.99); Hepatitis B Surface Antigen Negative (Negative)
[2021-03-31 03:39] LABS: Hepatitis A Antibody IgG REACTIVE (Nonreactive)
[2021-03-31 03:44] LABS: HBS Num1 > 1000.00 mIU/mL (0-7.99); HBc Num1 0.12 S/CO (0.00-0.79); Hepatitis B Core Antibody Nonreactive (Nonreactive); ~Hepatitis B Surface Antibody REACTIVE (Nonreactive)
[2021-03-31 03:45] LABS: Hepatitis A Antibody IgM 0.24 Index (0-0.79); ~Hepatitis A Antibody IgM Nonreactive (Nonreactive)
[2021-03-31 12:27] LABS: Alpha Fetoprotein 4.8 ng/mL (<6.1)
[2021-04-01 13:41] LABS: Anti Nuclear Antibody Screen NEGATIVE (NEGATIVE)
[2021-04-02 12:06] LABS: HCV RNA PCR Qn 2820000 IU/mL (NOT DETECTED); HCV RNA PCR Qn 6.45 Log IU/mL (NOT DETECTED)
[2021-04-03 14:11] LABS: Smooth Muscle Antibody <20 U (<20)
[2021-04-04 14:31] LABS: Mitochondrial Antibodies NEGATIVE (NEGATIVE)
[2021-04-07 18:16] LABS: HCV Genotype LiPA 2
== END 2021-03-30 11:14 | disposition home or self-care (01) ==
LOC: HO.LAB 11:13
PROVIDERS: PCP Physician Assistant; Visit Provider Nurse Practitioner
DX: Z01.818 Encounter for other preprocedural examination (principal); B19.20 Unspecified viral hepatitis C without hepatic coma; L98.9 Disorder of the skin and subcutaneous tissue, unspecified; R79.89 Other specified abnormal findings of blood chemistry; I10 Essential (primary) hypertension
CPT/HCPCS: 36415; 80048; 82105; 82728; 82977; 85027; 85610; 86038; 86039; 86255; 86256; 86704; 86706; 86708; 86709; 87340; 87389; 87522; 87902

== ENCOUNTER 2021-05-02 09:36 | Outpatient (REF) | payer OTHER, SELFPAY ==
--- NOTE | ~2021-05-02 | US_ITS ---
EXAMINATION: US COMPLETE ABDOMEN WITH LIVER ELASTOGRAPHY CLINICAL INFORMATION: Viral hepatitis C COMPARISON: Previous ultrasound June 2019 TECHNIQUE: Real-time imaging of the abdominal viscera. Noninvasive ultrasound liver fibrosis assessment is performed using [employer]tar ElastPQ point quantification shear wave elastography (pSWE) with a C5-2 MHz transducer. Multiple elastography samples are obtained. FINDINGS: PANCREAS: Not well visualized due to bowel gas ABDOMINAL AORTA: Not well visualized due to bowel gas INFERIOR VENA CAVA: Visualized portions are normal. LIVER: Normal. The liver demonstrates normal size, contour and echogenicity. No focal lesion or intrahepatic biliary duct dilatation. The right lobe measures 16 cm in length. The left lobe measures 11.6 cm in length. Portal flow is normal/hepatopedal Shear wave liver elastography median stiffness is 1.5 m/s (reference: normal median stiffness is 1.3 m/s or less). IQR/median stiffness to assess sampling precision is 0.13 (reference: good quality data set is IQR/median stiffness of 0.15 or less). GALLBLADDER: Normal. The gallbladder is physiologically distended without evidence of stones, sludge, polyps, wall thickening or pericholecystic fluid. COMMON BILE DUCT: Normal in caliber measuring 0.5 cm in diameter. RIGHT KIDNEY: Normal. No hydronephrosis. No renal calculi or focal parenchymal lesions. The kidney measures 10.8 cm in maximum dimension. LEFT KIDNEY: Normal. No hydronephrosis. No renal calculi or focal parenchymal lesions. The kidney measures 11.3 cm in maximum dimension. SPLEEN: Normal. The spleen measures 11.6 cm in maximum dimension. FREE FLUID: None. US/US abdomen comp w elastography IMPRESSION: 1. Impression: limited visualization of the pancreas and aorta. Otherwise unremarkable exam. 2. Liver elastography: Adequate liver sampling. In the absence of other known clinical signs, rules out compensated advanced chronic liver disease. REFERENCE: Society of Radiologists in Ultrasound Liver Stiffness Thresholds (2020): LIVER STIFFNESS THRESHOLDS: *Liver Stiffness equal or less than 1.3 m/s: High probability of being normal. *Liver Stiffness less than 1.7 m/s: In the absence of other known clinical signs, rules out compensated advanced chronic liver disease. *Liver Stiffness 1.7-2.1 m/s: Suggestive of compensated advanced chronic liver disease but need further test for confirmation. *Liver Stiffness over 2.1 m/s: Rules in compensated advanced chronic liver disease. *Liver Stiffness over 2.4 m/s: Suggestive of clinically significant portal hypertension. QUALITY OF DATA SET: *IQR/Median value equal or less than 0.15 implies a quality data set. *IQR/Median value over 0.15 implies a poor quality data set. SIGNIFICANT CHANGE FROM PRIOR EXAM: Significant change if liver stiffness measurement is 10% or greater from prior exam. OTHER CONSIDERATIONS: The stage of liver fibrosis may be overestimated in the setting of acute hepatitis, liver inflammation, elevated liver function tests, hepatic vascular congestion, obstructive cholestasis, non-fasting state, and infiltrative diseases such as amyloidosis and lymphoma. In some patients with NAFLD, the liver stiffness thresholds for compensated advanced chronic liver disease may be lower. In causes other than viral hepatitis and NAFLD, liver stiffness thresholds are not well established.
== END 2021-05-02 09:37 | disposition home or self-care (01) ==
LOC: HO.US 09:36
PROVIDERS: Visit Provider Nurse Practitioner
DX: B19.20 Unspecified viral hepatitis C without hepatic coma (principal); R79.89 Other specified abnormal findings of blood chemistry; L98.9 Disorder of the skin and subcutaneous tissue, unspecified
CPT/HCPCS: 76705; 76981

== ENCOUNTER → 2021-06-15 12:37 | Outpatient (BNVA) | payer OTHER, SELFPAY | PROVIDERS: PCP Physician Assistant; Referring Provider Physician Assistant; Visit Provider Nurse Practitioner | DX: B19.20 Unspecified viral hepatitis C without hepatic coma (principal) | CPT/HCPCS: 99212 ==

== ENCOUNTER 2021-08-03 09:31 | Outpatient (REF) | payer OTHER, SELFPAY ==
[2021-08-03 10:04] LABS: MANUAL DIFF FLAG NO
[2021-08-03 10:14] LABS: Basophils Percent Auto 0.4 % (0-2); Eosinophils Absolute Auto 0.1 X10*3/uL (0.0-0.4); Eosinophils Percent Auto 2.3 % (0-4); Hematocrit 43.3 % (42.0-52.0); Hemoglobin 14.7 g/dl (14.0-18.0); Imm Gran Abs Auto 0.01 X10*3/uL (0.00-0.03); Imm Gran Pct Auto 0.2 % (0.0-0.4); Lymphocytes Percent Auto 42.6 % (20-40); Mean Corpuscular HGB Conc 33.9 g/dl (31.0-36.0); Mean Corpuscular Hemoglobin 30.4 pg (27.0-33.0); Mean Corpuscular Volume 89.5 fL (80.0-98.0); Mean Platelet Volume 11.2 fL (9.4-12.4); Monocytes Absolute Auto 0.3 X10*3/uL (0.1-1.2); Monocytes Percent Auto 6.3 % (2-11); Neutrophils Absolute Auto 2.3 x10*3/uL (2.0-8.3); Neutrophils Percent Auto 48.2 % (45-73); Platelet Count 171 X10*3/uL (160-400); Red Blood Count 4.84 X10*6/uL (4.60-5.80); Red Cell Distribution Width 13.1 % (11.0-16.0); White Blood Count 4.8 X10*3/uL (4.8-10.8)
[2021-08-03 10:44] LABS: Alanine Aminotransferase 23 U/L (0-40); Albumin Level 4.1 g/dL (3.5-5.0); Alkaline Phosphatase 74 U/L (39-117); Anion Gap 9 (12-20); Aspartate Amino Transferase 17 U/L (5-37); Bilirubin Total 0.4 mg/dL (0.0-1.0); Blood Urea Nitrogen 8 mg/dL (9-16); Calcium 9.4 mg/dL (8.4-10.2); Carbon Dioxide 32 mmol/L (22-29); Chloride 103 mmol/L (96-108); Estimated Glomerular Filt Rate > 60; Glucose Random 105 mg/dL (60-115); Potassium 4.6 mmol/L (3.3-5.1); Sodium 139 mmol/L (135-145); Total Protein 7.6 g/dL (6.5-8.0)
[2021-08-05 21:26] LABS: HCV Log PCR <1.18 log IU/mL; HepC Viral Load <15 IU/mL
== END 2021-08-03 09:32 | disposition home or self-care (01) ==
LOC: HO.LAB 09:31
PROVIDERS: PCP Physician Assistant; Visit Provider Nurse Practitioner
DX: B19.20 Unspecified viral hepatitis C without hepatic coma (principal); R76.8 Other specified abnormal immunological findings in serum
CPT/HCPCS: 36415; 80053; 85025; 87522; 87902

== ENCOUNTER → 2021-08-10 14:21 | Outpatient (BNVA) | payer OTHER, SELFPAY | PROVIDERS: PCP Physician Assistant; Referring Provider Physician Assistant; Visit Provider Nurse Practitioner | DX: B19.20 Unspecified viral hepatitis C without hepatic coma (principal) | CPT/HCPCS: 99212 ==

== ENCOUNTER 2021-08-31 09:42 | Outpatient (REF) | payer OTHER, SELFPAY ==
[2021-08-31 10:05] LABS: MANUAL DIFF FLAG NO
[2021-08-31 10:13] LABS: Basophils Percent Auto 0.2 % (0-2); Eosinophils Absolute Auto 0.1 X10*3/uL (0.0-0.4); Eosinophils Percent Auto 2.7 % (0-4); Hematocrit 42.9 % (42.0-52.0); Hemoglobin 14.2 g/dl (14.0-18.0); Imm Gran Abs Auto 0.01 X10*3/uL (0.00-0.03); Imm Gran Pct Auto 0.2 % (0.0-0.4); Lymphocytes Percent Auto 46.4 % (20-40); Mean Corpuscular HGB Conc 33.1 g/dl (31.0-36.0); Mean Corpuscular Hemoglobin 30.1 pg (27.0-33.0); Mean Corpuscular Volume 91.1 fL (80.0-98.0); Mean Platelet Volume 10.8 fL (9.4-12.4); Monocytes Absolute Auto 0.3 X10*3/uL (0.1-1.2); Monocytes Percent Auto 5.9 % (2-11); Neutrophils Percent Auto 44.6 % (45-73); Platelet Count 178 X10*3/uL (160-400); Red Blood Count 4.71 X10*6/uL (4.60-5.80); Red Cell Distribution Width 13.2 % (11.0-16.0); White Blood Count 4.4 X10*3/uL (4.8-10.8)
[2021-08-31 11:02] LABS: Alanine Aminotransferase 25 U/L (0-40); Albumin Level 4.1 g/dL (3.5-5.0); Alkaline Phosphatase 78 U/L (39-117); Anion Gap 9 (12-20); Aspartate Amino Transferase 19 U/L (5-37); Bilirubin Total 0.3 mg/dL (0.0-1.0); Blood Urea Nitrogen 6 mg/dL (9-16); Calcium 9.3 mg/dL (8.4-10.2); Carbon Dioxide 31 mmol/L (22-29); Chloride 104 mmol/L (96-108); Estimated Glomerular Filt Rate > 60; Glucose Random 127 mg/dL (60-115); Potassium 4.3 mmol/L (3.3-5.1); Sodium 140 mmol/L (135-145); Total Protein 7.5 g/dL (6.5-8.0)
[2021-08-31 11:06] LABS: Estimated Average Glucose 108 mg/dL; Hemoglobin A1c % 5.4 %
[2021-08-31 11:14] LABS: TSH reflex Free T4 1.21 uIU/mL (0.32-4.0)
[2021-09-04 22:10] LABS: HCV RNA PCR Qn <1.18 NOT DETECTED Log IU/mL (NOT DETECTED); HCV RNA PCR Qn <15 NOT DETECTED IU/mL (NOT DETECTED)
== END 2021-08-31 09:43 | disposition home or self-care (01) ==
LOC: HO.LAB 09:42
PROVIDERS: PCP Physician Assistant; Visit Provider Nurse Practitioner
DX: Z13.29 Encounter for screening for other suspected endocrine disorder (principal); B19.20 Unspecified viral hepatitis C without hepatic coma
CPT/HCPCS: 36415; 80053; 83036; 84443; 85025; 87902

== ENCOUNTER → 2021-09-07 10:03 | Outpatient (BNVA) | payer OTHER, SELFPAY | PROVIDERS: PCP Physician Assistant; Referring Provider Physician Assistant; Visit Provider Nurse Practitioner | DX: R76.8 Other specified abnormal immunological findings in serum (principal) | CPT/HCPCS: 99212 ==

== ENCOUNTER 2021-09-28 09:32 | Outpatient (REF) | payer OTHER, SELFPAY ==
[2021-09-28 09:57] LABS: MANUAL DIFF FLAG NO
[2021-09-28 10:39] LABS: Basophils Percent Auto 0.4 % (0-2); Eosinophils Absolute Auto 0.1 X10*3/uL (0.0-0.4); Eosinophils Percent Auto 2.5 % (0-4); Hemoglobin 14.3 g/dl (14.0-18.0); Imm Gran Abs Auto 0.01 X10*3/uL (0.00-0.03); Imm Gran Pct Auto 0.2 % (0.0-0.4); Lymphocytes Absolute Auto 2.1 X10*3/uL (1.2-4.9); Lymphocytes Percent Auto 40.8 % (20-40); Mean Corpuscular HGB Conc 33.3 g/dl (31.0-36.0); Mean Corpuscular Hemoglobin 29.9 pg (27.0-33.0); Mean Platelet Volume 11.7 fL (9.4-12.4); Monocytes Absolute Auto 0.3 X10*3/uL (0.1-1.2); Monocytes Percent Auto 6.5 % (2-11); Neutrophils Absolute Auto 2.5 x10*3/uL (2.0-8.3); Neutrophils Percent Auto 49.6 % (45-73); Platelet Count 171 X10*3/uL (160-400); Red Blood Count 4.78 X10*6/uL (4.60-5.80); Red Cell Distribution Width 13.4 % (11.0-16.0); White Blood Count 5.1 X10*3/uL (4.8-10.8)
[2021-09-28 12:37] LABS: Alanine Aminotransferase 25 U/L (0-40); Albumin Level 4.1 g/dL (3.5-5.0); Alkaline Phosphatase 75 U/L (39-117); Anion Gap 12 (12-20); Aspartate Amino Transferase 19 U/L (5-37); Bilirubin Total 0.4 mg/dL (0.0-1.0); Blood Urea Nitrogen 6 mg/dL (9-16); Calcium 9.3 mg/dL (8.4-10.2); Carbon Dioxide 27 mmol/L (22-29); Chloride 105 mmol/L (96-108); Estimated Glomerular Filt Rate > 60; Glucose Random 97 mg/dL (60-115); Potassium 4.3 mmol/L (3.3-5.1); Sodium 140 mmol/L (135-145); Total Protein 7.3 g/dL (6.5-8.0)
[2021-09-30 14:07] LABS: HCV RNA PCR Qn <1.18 NOT DETECTED Log IU/mL (NOT DETECTED); HCV RNA PCR Qn <15 NOT DETECTED IU/mL (NOT DETECTED)
== END 2021-09-28 09:33 | disposition home or self-care (01) ==
LOC: HO.LAB 09:32
PROVIDERS: Nurse Practitioner; PCP Physician Assistant; Visit Provider Physician Assistant
DX: B19.20 Unspecified viral hepatitis C without hepatic coma (principal)
CPT/HCPCS: 36415; 80053; 85025; 87522; 87902

== ENCOUNTER → 2021-10-20 10:11 | Outpatient (BNVA) | payer OTHER, SELFPAY | PROVIDERS: PCP Physician Assistant; Visit Provider Dietitian, Registered | DX: E66.01 Morbid (severe) obesity due to excess calories (principal); Z68.42 Body mass index [BMI] 45.0-49.9, adult; Z71.3 Dietary counseling and surveillance | CPT/HCPCS: 97802 ==

== ENCOUNTER 2021-11-01 10:03 | Outpatient (REF) | payer OTHER, SELFPAY ==
[2021-11-01 10:16] LABS: MANUAL DIFF FLAG NO
[2021-11-01 10:49] LABS: Basophils Percent Auto 0.4 % (0-2); Eosinophils Absolute Auto 0.1 X10*3/uL (0.0-0.4); Eosinophils Percent Auto 2.1 % (0-4); Hematocrit 40.2 % (42.0-52.0); Hemoglobin 13.5 g/dl (14.0-18.0); Imm Gran Abs Auto 0.01 X10*3/uL (0.00-0.03); Imm Gran Pct Auto 0.2 % (0.0-0.4); Lymphocytes Absolute Auto 1.8 X10*3/uL (1.2-4.9); Lymphocytes Percent Auto 37.4 % (20-40); Mean Corpuscular HGB Conc 33.6 g/dl (31.0-36.0); Mean Corpuscular Hemoglobin 30.1 pg (27.0-33.0); Mean Corpuscular Volume 89.5 fL (80.0-98.0); Mean Platelet Volume 11.3 fL (9.4-12.4); Monocytes Absolute Auto 0.3 X10*3/uL (0.1-1.2); Monocytes Percent Auto 5.6 % (2-11); Neutrophils Absolute Auto 2.6 x10*3/uL (2.0-8.3); Neutrophils Percent Auto 54.3 % (45-73); Platelet Count 177 X10*3/uL (160-400); Red Blood Count 4.49 X10*6/uL (4.60-5.80); Red Cell Distribution Width 13.5 % (11.0-16.0); White Blood Count 4.8 X10*3/uL (4.8-10.8)
[2021-11-01 11:15] LABS: Alanine Aminotransferase 25 U/L (0-40); Alkaline Phosphatase 65 U/L (39-117); Anion Gap 10 (12-20); Aspartate Amino Transferase 20 U/L (5-37); Bilirubin Total 0.2 mg/dL (0.0-1.0); Blood Urea Nitrogen 10 mg/dL (9-16); Calcium 9.7 mg/dL (8.4-10.2); Carbon Dioxide 29 mmol/L (22-29); Chloride 106 mmol/L (96-108); Cholesterol 238 mg/dL; Estimated Glomerular Filt Rate > 60; Glucose Random 120 mg/dL (60-115); HDL Cholesterol 42 mg/dL; LDL Cholesterol Calculated 163 mg/dl; Potassium 4.3 mmol/L (3.3-5.1); Sodium 141 mmol/L (135-145); Total Protein 7.2 g/dL (6.5-8.0); Triglycerides 168 mg/dL
[2021-11-05 20:01] LABS: HCV RNA PCR Qn <1.18 NOT DETECTED Log IU/mL (NOT DETECTED); HCV RNA PCR Qn <15 NOT DETECTED IU/mL (NOT DETECTED)
== END 2021-11-01 10:04 | disposition home or self-care (01) ==
LOC: HO.LAB 10:03
PROVIDERS: PCP Physician Assistant; Visit Provider Nurse Practitioner
DX: B18.2 Chronic viral hepatitis C (principal); E66.01 Morbid (severe) obesity due to excess calories; Z68.41 Body mass index [BMI] 40.0-44.9, adult
CPT/HCPCS: 36415; 80053; 80061; 85025; 87902

== ENCOUNTER 2021-11-03 11:24 | Outpatient (REF) | payer OTHER, SELFPAY ==
[2021-11-04 14:10] LABS: H Pylori Breath Test Negative (Negative)
== END 2021-11-03 11:25 | disposition home or self-care (01) ==
LOC: CF 11:24
PROVIDERS: PCP Physician Assistant; Referring Provider Physician Assistant; Visit Provider Nurse Practitioner
DX: B17.10 Acute hepatitis C without hepatic coma (principal); K21.9 Gastro-esophageal reflux disease without esophagitis; R11.2 Nausea with vomiting, unspecified
CPT/HCPCS: 36415; 83013; 99212

== ENCOUNTER 2022-01-26 | Outpatient (REF) | payer OTHER, SELFPAY | END 2022-01-26 00:01 | LOC: CF | PROVIDERS: Visit Provider Nurse Practitioner | DX: B17.10 Acute hepatitis C without hepatic coma (principal); K21.9 Gastro-esophageal reflux disease without esophagitis; K59.00 Constipation, unspecified; R11.2 Nausea with vomiting, unspecified | CPT/HCPCS: 99212 ==

== ENCOUNTER 2022-09-12 17:59 | Emergency (ER) | payer OTHER, SELFPAY ==
[2022-09-12 18:07] VITALS: BP 125/87; BP 138/84; PULSE 77; RESP 18; TEMP 36.6; O2SAT 96; BMI 36.9
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
--- OUTSIDE RECORDS SUMMARY | 2022-09-12 18:27 | XMS_ITS | Continuity of Care Document ---
:1980 Author Organization [facility] Address [address] [place] [address]- Care Team Providers Name Role Phone Johnie Carvalho MD [id number] Date(s): 12/05/21 - 12/05/[address] [id number] Discharge Disposition: A-D/C Home Attending Physician: Gurmeet Valerio DMD Admitting Physician: Gurmeet Valerio DMD Referring Physician: Gurmeet Valerio DMD Allergies, Adverse Reactions, Alerts Substance Reaction Severity Status Tylenol with Codeine Active Medications cloNIDine 0.1 mg oral tablet 0.1 mg, 1, tablet, By Mouth, 2 times a day, PRN, # 60 tablet, Refills 1, Tot. Refills 1, Maintenance, Anxiety, 05/09/20 10:57:00 EST, Route to Pharmacy Electronically, [facility]-, Partial fill upon patient request, 185.42, cm,... Start Date: 05/09/20 Stop Date: 07/08/20 Status: Orderedgabapentin 300 mg oral capsule 300 mg, 1, capsule, By Mouth, 3 times a day, # 90 capsule, Refills 1, Tot. Refills 1, Maintenance, 05/09/20 10:57:00 EST, Route to Pharmacy Electronically, [facility]-, Partial fill upon patient request, 185.42, cm, 05/09/20 8:... Start Date: 05/09/20 Stop Date: 07/08/20 Status: OrderedHYDROmorphone Inj (PACU ONLY) 0.2 mg, Injection, IV Push Slowly, Every 5 minutes, up to a maximum of 2 mg, Hold for: RR less than 8 OR Sedation Scale of C, PRN for Pain , Severe, Routine, 12/05/21 14:57:00 EDT Start Date: 12/05/21 Stop Date: 12/12/21 Status: OrderedMethadone = 40 mg, By Mouth, Daily, 0 Refills, Maintenance, 04/16/20 16:09:00 EDT, According to [facility] records, Erica Woods [facility] verified dose. it was given at 0900 on 04/[address] [facility] Start Date: 04/16/20 Status: OrderedOxyCODONE IR Tablet 10 mg, Tablet, By Mouth, Every 4 hours, in PACU ONLY, if patient can tolerate PO, PRN for Pain , Moderate, Routine, 12/05/21 14:57:00 EDT Start Date: 12/05/21 Stop Date: 12/12/21 Status: OrderedSEROquel 50 mg oral tablet See Instructions, 1 tablet By Mouth 3 times a day and 1 tablet 2 times a day as needed for anxiety or psychosis, # 120 tablet, 1 Refills, Maintenance, 05/09/20 10:59:00 EST, Tablet, [facility]-, Partial fill upon patient reques... Start Date: 05/09/20 Status: OrderedWellbutrin XL 300 mg/24 hours oral tablet, extended release 1 tablet = 300 mg, By Mouth, Daily in AM, 0 Refills, Maintenance, 12/04/21 15:41:00 EDT, Partial fill upon patient request if the prescription is for a schedule II opioid drug. Start Date: 12/04/21 Status: Ordered Problem List Condition Effective Dates Status Health Status Informant Severe obesity(Confirmed) Active Vital Signs Most recent to oldest 1 2 3 [Reference Range]: Height 185.4 cm 185.4 cm (12/05/21 1:27 PM) (12/04/21 4:05 PM) Weight 155.7 kg 156.5 kg (12/05/21 1:27 PM) (12/04/21 4:05 PM) Oxygen Saturation [94-100 96 % 97 % 97 % %] (12/05/21 4:30 PM) (12/05/21 4:15 PM) (12/05/21 4:0 0 PM) Pulse Rate [55-90 bpm] 88 bpm (12/05/21 1:27 PM) Body Mass Index 45.3 45.53 [18.5-24.99] *>HHI* *>HHI* (12/05/21 1:27 PM) (12/04/21 4:05 PM) Blood Pressure 147/97 mm Hg 156/96 mm Hg 154/85 mm Hg [90-138/55-84 mm Hg] *H* *H* *H* (12/05/21 4:30 PM) (12/05/21 4:15 PM) (12/05/21 4:0 0 PM) Respiratory Rate [16-30 18 br/min 16 br/min 14 br/mi n br/min] (12/05/21 4:49 PM) (12/05/21 4:32 PM) *L* (12/05/21 4:26 PM ) Temperature [96.8-100.4 97.8 DegF 98.6 DegF 97.4 Deg F DegF] (12/05/21 4:30 PM) (12/05/21 3:15 PM) (12/05/21 1:2 7 PM) Liters per Minute 1 L/min 2 L/min 4 L/min (12/05/21 4:30 PM) (12/05/21 4:00 PM) (12/05/21 3:4 5 PM) Mode of Delivery (Oxygen) Room air Nasal cannula Nasal cannula (12/05/21 5:15 PM) (12/05/21 4:30 PM) (12/05/21 4:0 0 PM) Blood pressure sites Arm, right (12/05/21 3:15 PM) Temperature Route Temporal Temporal Temporal (12/05/21 4:30 PM) (12/05/21 3:15 PM) (12/05/21 1:2 7 PM) Dry Weight 156.5 kg (12/04/21 4:05 PM) Weight Obtained Via Patient/family stated (12/04/21 4:05 PM) Dry Weight Obtained Via Patient/family stated (12/04/21 4:05 PM)
[2022-09-12 18:42] LABS: COVID-19 Test Negative (Negative); IDNOW Serial# BCCEAD1C
[2022-09-12 19:40] LABS: MANUAL DIFF FLAG NO
[2022-09-12 19:41] LABS: Basophils Percent Auto 0.4 % (0-2); Eosinophils Absolute Auto 0.1 X10*3/uL (0.0-0.4); Eosinophils Percent Auto 2.1 % (0-4); Hematocrit 43.3 % (42.0-52.0); Hemoglobin 14.9 g/dl (14.0-18.0); Imm Gran Abs Auto 0.01 X10*3/uL (0.00-0.03); Imm Gran Pct Auto 0.2 % (0.0-0.4); Lymphocytes Absolute Auto 1.6 X10*3/uL (1.2-4.9); Lymphocytes Percent Auto 29.8 % (20-40); Mean Corpuscular HGB Conc 34.4 g/dl (31.0-36.0); Mean Corpuscular Hemoglobin 31.8 pg (27.0-33.0); Mean Corpuscular Volume 92.5 fL (80.0-98.0); Mean Platelet Volume 10.7 fL (9.4-12.4); Monocytes Absolute Auto 0.4 X10*3/uL (0.1-1.2); Monocytes Percent Auto 7.9 % (2-11); Neutrophils Absolute Auto 3.2 x10*3/uL (2.0-8.3); Neutrophils Percent Auto 59.6 % (45-73); Platelet Count 150 X10*3/uL (160-400); Red Blood Count 4.68 X10*6/uL (4.60-5.80); Red Cell Distribution Width 14.8 % (11.0-16.0); White Blood Count 5.3 X10*3/uL (4.8-10.8)
[2022-09-12] MEDS: LORazepam 1 MG TABLET 2 MG PO (19:51)
[2022-09-12 20:04] LABS: Acetaminophen LAB < 17 mcg/mL (<30); Alanine Aminotransferase 22 U/L (0-40); Albumin Level 3.5 g/dL (3.5-5.0); Alkaline Phosphatase 77 U/L (39-117); Anion Gap 14 (12-20); Aspartate Amino Transferase 27 U/L (5-37); Bilirubin Total 0.4 mg/dL (0.0-1.0); Blood Urea Nitrogen 9 mg/dL (9-16); Carbon Dioxide 28 mmol/L (22-29); Chloride 102 mmol/L (96-108); Creatinine Clr Calc Pharmacy 163.2; Estimated Glomerular Filt Rate > 60; Ethanol < 10 mg/dL; Glucose Random 109 mg/dL (60-115); Magnesium 1.8 mg/dL (1.6-2.6); Potassium 3.9 mmol/L (3.3-5.1); Salicylate < 5.0 mg/dL (15-30); Sodium 140 mmol/L (135-145); Total Protein 6.1 g/dL (6.5-8.0)
[2022-09-12 20:06] LABS: Amphetamine Screen Urine Not Detected (Not Detect); Barbiturates, Urine Not Detected (Not Detect); Benzodiazepines Screen Urine Not Detected (Not Detect); Cannabinoid Screen Urine Not Detected (Not Detect); Cocaine Screen Urine POSITIVE (Not Detect); Fentanyl, urine POSITIVE (Not Detect); Opiate Screen Urine Not Detected (Not Detect); Phencyclidine Screen Urine Not Detected (Not Detect)
[2022-09-12 23:17] VITALS: BP 122/64; PULSE 60; RESP 16; TEMP 36.2; O2SAT 96
--- NOTE | 2022-09-13 02:18 | PC.NURSE ---
Patient is in bed appears sleeping, no distress observed/reported at this time, Ativan 2 mg PO administered at 1950 with + effect, disposition per care team is section 12 inpatient bed search, behavior non concerning, med rec completed/pending provider's approval, will continue to monitor.
--- NOTE | 2022-09-13 08:29 | PC.NURSE ---
methadone dose verified with [facility]. paperwork sent to pharmacy..
--- NOTE | 2022-09-13 09:02 | HE.PHANOTE ---
Methadone Verification Pharmacy has received the methadone verification from [facility]. Patient last received methadone 58 mg on 09/08 @ 1028. Confirmed with Komal Linton [facility]. Lyudmila Fatima, ErikaD
[2022-09-13] MEDS: methADONE HCl 20 MG/2 ML ORAL.CONC 60 MG PO (09:56)
--- NOTE | 2022-09-13 11:08 | MHC.CARE ---
CARE Team international trade analyst attempted to check in with pt. Pt was observed sleeping as evidenced by him snoring with chest rise and fall. Will follow up with patient in an hour.
--- NOTE | 2022-09-13 14:04 | MHC.CARE ---
CARE Team received a call from Arun Wilburn [phone] who reported the [place] completed a Section 35 and warrant is active till Saturday09/17/22 and requested to be notified regarding plan if Pt can be picked up on warrant. Michelle plans to call CARE Team 09/14/22 for update.
--- NOTE | 2022-09-13 15:01 | MHC.CARE ---
Pt was accepted for [facility] inpt unit for admission today. Facility will call to complete N2N & would like pt to arrive @1900. [facility] [address] [place] [id number] Esther Donahue Accepting Unit is [address] [place] [address]
[2022-09-13 15:03] VITALS: BP 130/73; PULSE 67; RESP 16; TEMP 36.6; O2SAT 98
--- NOTE | 2022-09-13 15:06 | PC.NURSE ---
report called to Vince SCHAFFER
[2022-09-13] MEDS: QUEtiapine Fumarate 100 MG TABLET PO (15:51)
[2022-09-13] MEDS: cloNIDine HCL 0.1 MG TABLET PO (15:51)
[2022-09-13] MEDS: Gabapentin 400 MG CAPSULE 800 MG PO (15:51)
--- NOTE | 2022-09-13 16:05 | MHC.RECOVRN ---
Spoke with Lyle at [facility] OT after consult placed to Addiction Medicine for KANDICE. Lyle verified pt last received a dose at the [facility] on 09/08, 58 mg. Pt received a take home of 58 mg for the . On 09/11 Jessica called the [facility] for a last dose and on 09/12 [facility] called for a last dose. It is possible pt only missed the dose on 09/10. The OTPs policy states that if 1-4 days are missed, no dose adjustment. A dose adjustment would be on day 5. Hence, pt does not need a dose adjustment and may receive 58 mg today. Pharmacy aware.
== END 2022-09-13 18:24 | disposition other institution (70) ==
PROVIDERS: Physician Assistant; Emergency Provider Internal Medicine; PCP Physician Assistant
DX: F33.2 Major depressive disorder, recurrent severe without psychotic features (principal); R45.851 Suicidal ideations; R45.850 Homicidal ideations; Z20.822 Contact with and (suspected) exposure to COVID-19; F41.9 Anxiety disorder, unspecified; F43.10 Post-traumatic stress disorder, unspecified; F11.20 Opioid dependence, uncomplicated; F17.210 Nicotine dependence, cigarettes, uncomplicated; Z79.899 Other long term (current) drug therapy
CPT/HCPCS: 80053; 80143; 80179; 80307; 82077; 83735; 85025; 87635; 99284; 99285; S9485

== ENCOUNTER 2022-10-25 22:41 | Inpatient (IN) | payer OTHER, SELFPAY ==
[2022-10-25 23:18] VITALS: BP 114/59; PULSE 105; RESP 16; O2SAT 97; BMI 31.7
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
[2022-10-25 23:45] LABS: MANUAL DIFF FLAG NO
[2022-10-25 23:47] LABS: Basophils Percent Auto 0.2 % (0-2); Eosinophils Absolute Auto 0.1 X10*3/uL (0.0-0.4); Eosinophils Percent Auto 2.6 % (0-4); Hematocrit 39.3 % (42.0-52.0); Hemoglobin 13.3 g/dl (14.0-18.0); Imm Gran Abs Auto 0.01 X10*3/uL (0.00-0.03); Imm Gran Pct Auto 0.2 % (0.0-0.4); Lymphocytes Absolute Auto 1.5 X10*3/uL (1.2-4.9); Lymphocytes Percent Auto 29.8 % (20-40); Mean Corpuscular HGB Conc 33.8 g/dl (31.0-36.0); Mean Corpuscular Hemoglobin 31.1 pg (27.0-33.0); Mean Platelet Volume 11.4 fL (9.4-12.4); Monocytes Absolute Auto 0.4 X10*3/uL (0.1-1.2); Monocytes Percent Auto 7.3 % (2-11); Neutrophils Percent Auto 59.9 % (45-73); Platelet Count 163 X10*3/uL (160-400); Red Blood Count 4.27 X10*6/uL (4.60-5.80); Red Cell Distribution Width 13.2 % (11.0-16.0); White Blood Count 4.9 X10*3/uL (4.8-10.8)
[2022-10-26 00:05] LABS: Alanine Aminotransferase 29 U/L (0-40); Albumin Level 3.8 g/dL (3.5-5.0); Alkaline Phosphatase 62 U/L (39-117); Anion Gap 12 (12-20); Aspartate Amino Transferase 40 U/L (5-37); Bilirubin Total 0.4 mg/dL (0.0-1.0); Blood Urea Nitrogen 16 mg/dL (9-16); Calcium 9.3 mg/dL (8.4-10.2); Carbon Dioxide 31 mmol/L (22-29); Chloride 103 mmol/L (96-108); Creatinine Clr Calc Pharmacy 156.8; Estimated Glomerular Filt Rate > 60; Ethanol < 10 mg/dL; Glucose Random 128 mg/dL (60-115); Potassium 3.4 mmol/L (3.3-5.1); Sodium 143 mmol/L (135-145); Total Protein 6.4 g/dL (6.5-8.0)
[2022-10-26 00:07] LABS: COVID-19 Test Negative (Negative); IDNOW Serial# BCCEAD1C
[2022-10-26 05:03] VITALS: TEMP 36.3
--- NOTE | 2022-10-26 05:12 | PC.NURSE ---
Patient slept through the night, not easily arousable due to poly-substance influence but respiration +/=/non-labored bilaterally and RR 20, unable to provide urine sample, med rec completed/pending provider's approval, care consult ordered/pending evaluation in the morning, VSS, behavior non concerning, will continue to monitor.
--- OUTSIDE RECORDS SUMMARY | 2022-10-26 07:21 | XMS_ITS | Continuity of Care Document ---
Author Name Unknown Organization [facility] ter Address [address] [place] [id number] Care Team Providers Care Wood Floor Layer Name Role Phone Kedar Santo Primary Care Physician Encounter [facility] Date(s): 09/11/22 - 09/12/[address] [address]- Encounter Diagnosis Agitation(Final) - 09/12/22 Discharge Disposition: A-D/C Home Attending Physician: Live Miller MD Admitting Physician: Live Miller MD Referring Physician: Not on Staff, Referring MD Allergies, Adverse Reactions, Alerts Substance Reaction Severity Status Tylenol with Codeine Active Medications cloNIDine 0.1 mg oral tablet 0.1 mg, 1, tablet, By Mouth, 2 times a day, PRN, # 60 tablet, Refills 1, Tot. Refills 1, Maintenance, Anxiety, 05/09/20 10:57:00 EST, Route to Pharmacy Electronically, [facility] Partial fill upon patient request, 185.42, cm,... Start Date: 05/09/20 Stop Date: 07/08/20 Status: Ordered gabapentin 300 mg oral capsule 300 mg, 1, capsule, By Mouth, 3 times a day, # 90 capsule, Refills 1, Tot. Refills 1, Maintenance, 05/09/20 10:57:00 EST, Route to Pharmacy Electronically, [facility] Partial fill upon patient request, 185.42, cm, 05/09/20 8:... Start Date: 05/09/20 Stop Date: 07/08/20 Status: Ordered Methadone = 40 mg, By Mouth, Daily, 0 Refills, Maintenance, 04/16/20 16:09:00 EDT, According to [facility] records, Erica at [facility] verified dose. it was given at 0900 on 04/16 at [facility] Start Date: 04/16/20 Status: Ordered Methadone Liquid 58 mg, Solution, By Mouth, Once, confirmed, Routine, 09/12/22 6:00:00 EDT, Stop date 09/12/22 6:00:00 EDT Start Date: 09/12/22 Stop Date: 09/12/22 Status: Completed SEROquel 50 mg oral tablet See Instructions, 1 tablet By Mouth 3 times a day and 1 tablet 2 times a day as needed for anxiety or psychosis, # 120 tablet, 1 Refills, Maintenance, 05/09/20 10:59:00 EST, Tablet, [facility], Partial fill upon patient reques... Start Date: 05/09/20 Status: Ordered Wellbutrin XL 300 mg/24 hours oral tablet, extended release 1 tablet = 300 mg, By Mouth, Daily in AM, 0 Refills, Maintenance, 12/04/21 15:41:00 EDT, Partial fill upon patient request if the prescription is for a schedule II opioid drug. Start Date: 12/04/21 Status: Ordered Problem List Condition Confirmation Course Effective Dates Status Health St atus Informant Severe obesity Confirmed Active Vital Signs Most recent to oldest [Reference Range]: 1 2 3 Oxygen Saturation [94-100 %] 99 % (09/12/22 6:01 AM) 96 % (09/12/22 12:12 AM) 96 % (09/11/22 7:41 PM) Pulse Rate [55-90 bpm] 64 bpm (09/12/22 6:01 AM) 75 bpm (09/12/22 12:12 AM) 79 bpm (09/11/22 7:41 PM) Blood Pressure [90-138/55-84 mm Hg] 127/71mm Hg (09/12/22 6:01 AM) 117/64mm Hg (09/12/22 12:12 AM) 148/94mm Hg *H* (09/11/22 7:41 PM) Respiratory Rate [16-30 br/min] 18 br/min (09/12/22 6:19 AM) 18 br/min (09/12/22 6:01 AM) 18 br/min (09/12/22 12:12 AM) Temperature [96.8-100.4 DegF] 98.0 DegF (09/12/22 12:12 AM) 97.9 DegF (09/11/22 7:41 PM) 98.1 DegF (09/11/22 5:20 PM) Mode of Delivery (Oxygen) Room air (09/12/22 6:01 AM) Room air (09/12/22 12:12 AM) Room air (09/11/22 7:41 PM) Blood pressure sites Arm, left (09/11/22 7:41 PM) Arm, right (09/11/22 5:20 PM) Temperature Route Oral (09/12/22 12:12 AM) Oral (09/11/22 7:41 PM) Oral (09/11/22 5:20 PM) EKG study * Event Display: EKG Authored Date: * Event Display: ECG 12-Lead Authored Date: Please click on pdf link to open report * Event Display: ECG 12-Lead Authored Date: Ventricular Rate: 78 BPM Atrial Rate: 78 BPM P-R Interval: 160 ms QRS Duration: 88 ms Q-T Interval: 402 ms QTC Calculation(Bazett): 458 ms P [place]: 15 degrees R [place]: 9 degrees T [place]: -16 degrees Normal sinus rhythm Minimal voltage criteria for LVH, may be normal variant ( R in aVL ) T wave abnormality, consider anterior ischemia Abnormal ECG When compared with ECG of 28-JAN-2019 15:39, No significant change was found Confirmed by MICHELLE WU MD ([id number]) on 09/12/2022 8:02:02 AM Kingsley: MICHELLE WU MD Note * Live Miller MD: PERFORM Event Display: Patient Education Leaflets Authored Date: [id number] [facility] - Substance Abuse Resources ?? 151 If you need Substance Abuse Resources: ?? [facility] [phone] ?? [facility] [phone] ?? [facility] [phone] ?? [facility] [phone] ?? [facility] [phone] ?? [facility] [phone] ?? [place] [phone] ?? [facility] [phone] ?? [facility] [place] [phone] ?? [facility] [phone] ?? [facility] [phone] ?? [facility] [phone] ?? [facility] [phone] ?? [facility] [phone] ?? [facility] [place] [phone] ?? [facility] (13-17 yo) Sarah [phone] ?? [facility] [phone] ? Partial Hospitalization ??? Outpatient therapy for adults and families with substance abuse problems [address] [place] [address] ? Support Services ? [facility] Outreach - Outpatient therapy /support for recovery / transitional housing &&shelters? [address] [facility] [phone] ? [facility] Action - women's AA group/street outreach program/health access assistance? [address] [facility] [phone] ? [facility]coh[facility] Anonymous - AA program to maintain sobriety/ Alanon-support for families of alcoholics/Alateen-support for children of same [phone] ? [facility] - recovery support services/sober social Opportunities [address] [place] [address] ? Patient Care team information Care Team Personnel Name: Kedar Santo Position: Reference Physician Member Role: PCP Address: Address: [address] [place] [address] [address] [place] [address]- Name: Kory SCHAFFER, Leela Burden Position: [facility] AMB Nurse Member Role: Primary Care Nurse Name: *Manolo, ED Attending Position: [facility] ED Attendings Patient Name: Foina SCHAFFER, Philomena Position: [facility] ED RN W/OE and Tasks Member Role: Patient Care Provider Name: Lidia Rosario Position: [facility] ED TA [facility] Member Role: Press Helper Name: Live Miller MD Position: [facility] Resident Member Role: ED Attending Physician Address: Address: [address] [place] [address] [place] [address]-
[2022-10-26 08:53] VITALS: BP 117/77; PULSE 80; RESP 18; TEMP 37.2; O2SAT 97
--- NOTE | 2022-10-26 11:20 | MHC.CARE ---
CARE Team attempted to rouse Pt to encourage Pt to begin the medical clearance process- t/w not able to engage Pt as he is resting soundly. RN aware
[2022-10-26 13:45] LABS: Appearance Urine Clear; Color Urine Dark Yellow; Glucose Urine UA Negative (Negative); Leukocyte Esterase Urine Small (1+) (Negative); Nitrite Urine Negative (Negative); Specific Gravity - Urine 1.025 (1.005-1.025); UMIC TRIGGER UA YES; Urine Blood Negative (Negative); Urine Ketones Trace mg/dL (Negative); Urine Protein 30 (1+) mg/dL (Neg-Trace)
[2022-10-26 13:54] LABS: Amphetamine Screen Urine Not Detected (Not Detect); Barbiturates, Urine Not Detected (Not Detect); Benzodiazepines Screen Urine Not Detected (Not Detect); Cannabinoid Screen Urine Not Detected (Not Detect); Cocaine Screen Urine POSITIVE (Not Detect); Fentanyl, urine POSITIVE (Not Detect); Opiate Screen Urine POSITIVE (Not Detect); Phencyclidine Screen Urine Not Detected (Not Detect)
[2022-10-26 13:58] LABS: Bacteria Urine None Seen (None Seen); Calcium Oxalate Crystals Urine Present; RBC Urine 0-2 /HPF (0-2)
[2022-10-26 14:08] VITALS: BP 115/73; PULSE 97; RESP 15; TEMP 36.4; O2SAT 93
[2022-10-26] MEDS: cloNIDine HCL 0.1 MG TABLET PO ×2 (14:15→19:50)
[2022-10-26] MEDS: Gabapentin 400 MG CAPSULE 800 MG PO ×2 (14:15→19:51)
[2022-10-26 16:21] VITALS: BP 140/100; PULSE 84; RESP 16; TEMP 36.7; O2SAT 96
[2022-10-26] MEDS: clonazePAM 1 MG TABLET PO (19:51)
[2022-10-26 20:44] VITALS: BP 119/68; PULSE 80; RESP 16; TEMP 36.4; O2SAT 95
--- NOTE | 2022-10-26 21:29 | MHC.EDTECH ---
Patient came to nurses station requesting 2 sandwiches, pudding and sakshi peter. This procedure writer told patient that I could provide him with 1 patient sandwich and 1 jello. Patient was agreeable to this. patient is resting comfortably in gis room.
[2022-10-27 06:19] VITALS: BP 122/70; PULSE 80; RESP 16; TEMP 36.7; O2SAT 94
--- NOTE | 2022-10-27 06:44 | PC.NURSE ---
Patient slept through the night, no distress observed/reported, behavior non concerning, disposition per care team is JAYDEN follow up, medication compliant, VSS, will continue to monitor.
--- NOTE | 2022-10-27 10:12 | PC.NURSE ---
Pt woke has been eating excessive amounts of food. Asking to see care team Asking for medication. Verbally Threatening and Verbally aggressive. MD notified.
[2022-10-27] MEDS: cloNIDine HCL 0.1 MG TABLET PO ×3 (10:18→20:49)
[2022-10-27] MEDS: buPROPion HCl XL 300 MG TAB.ER.24H PO (10:18)
[2022-10-27] MEDS: Gabapentin 400 MG CAPSULE 800 MG PO ×3 (10:18→20:49)
[2022-10-27] MEDS: QUEtiapine Fumarate 200 MG TABLET PO (10:22)
--- NOTE | 2022-10-27 12:50 | PC.NURSE ---
Pt up to the nursing station. Wants the clickedr to change the channel. When told someone has it went to the Tech. stating, How long do I have to wait so I can change the channel Remote retrieved Pt back to bed.
--- NOTE | 2022-10-27 15:36 | MHC.RECOVRN ---
This selling underwriter went to meet with patient after alert from care team, patient possibly interested in recovery supports. Patient reports past 2 months daily use 1/2-2 bundles heroin daily IV, 1/2 gram-1 gram daily IV DG. Patient reports prior to 2 months ago, period of recovery, on MTD at [facility] for 3 years. Patient reports currently having thoughts of self harm/suicide, CM aware.
[2022-10-27 15:46] VITALS: BP 119/80; PULSE 66; RESP 18; TEMP 36.3; O2SAT 98
--- NOTE | 2022-10-27 18:43 | PC.NURSE ---
Pt is eating dinner and watching TV at this time. No dangerous behaviors. No s/s of distress noted. Slept most of the shift. Woke for meds and meals.
[2022-10-27] MEDS: clonazePAM 1 MG TABLET PO (20:49)
[2022-10-27 20:57] VITALS: BP 117/78; PULSE 76; RESP 18; TEMP 36.9; O2SAT 97
[2022-10-28 00:28] VITALS: BP 128/70; PULSE 71; RESP 18; TEMP 36.6; O2SAT 96
--- NOTE | 2022-10-28 05:24 | PC.NURSE ---
Patient slept through the night, no distress observed/reported, medication compliant, disposition per care team is voluntary inpatient bed search, behavior non concerning, VSS, labs completed/resulted, will continue to monitor.
[2022-10-28] MEDS: Gabapentin 400 MG CAPSULE 800 MG PO ×3 (08:30→21:13)
[2022-10-28] MEDS: cloNIDine HCL 0.1 MG TABLET PO ×3 (08:31→21:24)
[2022-10-28] MEDS: buPROPion HCl XL 300 MG TAB.ER.24H PO (08:31)
[2022-10-28 08:41] VITALS: BP 125/79; PULSE 60; RESP 15; TEMP 36.6; O2SAT 96
--- NOTE | 2022-10-28 11:22 | ECG_ITS ---
Test Reason : COCAINE USE Blood Pressure : / mmHG Vent. Rate : 063 BPM Atrial Rate : 063 BPM P-R Int : 176 ms QRS Dur : 088 ms QT Int : 436 ms P-R-T Axes : 025 022 015 degrees QTc Int : 446 ms Normal sinus rhythm Normal ECG When compared with ECG of 24-NOV-2020 08:39, Nonspecific T wave abnormality no longer evident in Lateral leads Referred By: Generic ED Physician Electronically Signed By:TEOFILO WARREN
--- NOTE | 2022-10-28 12:59 | MHC.CARE ---
Patient accepted to for admission today
--- NOTE | 2022-10-28 13:12 | PC.NURSE ---
Slept until was woke for shower. No dangerous behaviors noted.
[2022-10-28 15:24] VITALS: BP 130/76; PULSE 76; RESP 16; TEMP 36.2; O2SAT 97
[2022-10-28] MEDS: clonazePAM 1 MG TABLET PO (21:13)
[2022-10-28] MEDS: QUEtiapine Fumarate 200 MG TABLET PO (21:26)
--- NOTE | 2022-10-28 21:28 | PC.ADMIT ---
pt is a 41 year old male who presented to [facility] ED with SI w/plan. pt tox screen was positive for cocaine, opioids, and fentanyl. pt has a PMH of substance use disorder, schizophrenia, mood disorder and past inpatient hospitalizations. during admission, pt refused to sign legals and reported wanting to sleep. pt signed a few legals however. pt reports he is sad about his dying, and he was hearing voices telling him to kill himself. pt was med and meal complainant. start treatment plan and promote safety.
--- NOTE | 2022-10-29 07:16 | PHA.MEDREC ---
Pharmacy Consult ? Medication Reconciliation Pharmacy has completed the medication reconciliation. Pharmacy has reviewed the med rec done by Bala.
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
[2022-10-29 09:08] VITALS: BP 123/63; PULSE 74; RESP 16; TEMP 36.4; O2SAT 95
[2022-10-29] MEDS: buPROPion HCl XL 300 MG TAB.ER.24H PO (09:14)
[2022-10-29] MEDS: Folic Acid 1 MG TABLET PO (09:14)
[2022-10-29] MEDS: cloNIDine HCL 0.1 MG TABLET PO ×3 (09:14→21:25)
[2022-10-29] MEDS: Thiamine HCL 100 MG TABLET PO (09:14)
[2022-10-29] MEDS: Gabapentin 400 MG CAPSULE 800 MG PO ×3 (09:15→21:24)
[2022-10-29] MEDS: LORazepam 1 MG TABLET PO ×2 (11:20→21:25)
[2022-10-29 14:20] VITALS: BP 127/60; PULSE 77
[2022-10-29 18:00] VITALS: BP 132/88; PULSE 88; TEMP 36.2; O2SAT 98
[2022-10-29] MEDS: LORazepam 1 MG TABLET 2 MG PO (18:02)
[2022-10-29 21:23] VITALS: BP 120/75; PULSE 74
[2022-10-29] MEDS: OLANZapine 5 MG TABLET PO (21:24)
[2022-10-29] MEDS: clonazePAM 1 MG TABLET PO (21:24)
[2022-10-30 08:03] VITALS: BP 121/75; PULSE 70; RESP 16; TEMP 36.8; O2SAT 95
[2022-10-30] MEDS: Folic Acid 1 MG TABLET PO (08:17)
[2022-10-30] MEDS: buPROPion HCl XL 300 MG TAB.ER.24H PO (08:17)
[2022-10-30] MEDS: cloNIDine HCL 0.1 MG TABLET PO ×3 (08:17→20:29)
[2022-10-30] MEDS: OLANZapine 5 MG TABLET PO (08:17)
[2022-10-30] MEDS: Thiamine HCL 100 MG TABLET PO (08:17)
[2022-10-30] MEDS: Gabapentin 400 MG CAPSULE 800 MG PO ×3 (08:17→20:28)
[2022-10-30] MEDS: LORazepam 1 MG TABLET PO ×4 (08:17→20:27)
[2022-10-30 10:58] LABS: Estimated Average Glucose 111 mg/dL; Hemoglobin A1c % 5.5 %
[2022-10-30 12:05] LABS: Cholesterol 217 mg/dL; HDL Cholesterol 41 mg/dL; Iron 60 mcg/dL (45-160); LDL Cholesterol Calculated 131 mg/dl; Percent Iron Saturation 20 % (15-50); Total Iron Binding Capacity 303 mcg/dL (228-428); Triglycerides 229 mg/dL; Unsaturated Iron Binding 243 ug/dL
[2022-10-30 12:27] LABS: Folate 4.7 ng/mL (> or = 4.0); Vitamin B12 231 pg/mL (200-900)
--- NOTE | 2022-10-30 13:34 | P.PNPSI_ITS ---
Subjective Subjective Date of Service: 10/30/22 Reason For Visit: Depression/SI Subjective Notes: Conditional Voluntary Healthcare Proxy: No Guardianship: No Medical Problems Affecting Mental Status: No Interim History: Dionisio reports poor sleep at night. Discussed effects of alcohol use. Pt reports three months of daily use~2 fifth pints daily vodka. Discussed options for sleep assistance Looking improved today and reports feeling some relief. Iron Profile, TSH Folate, A1C, Lipids WNL B12 low-will supplement Medication Compliance: Yes Side effects from medications: No Attending Groups: Intermittent Review of Systems Acute medical concerns: No Medical Review of Systems: unchanged Mental Status Exam Mental Status Exam Patient Appearance: Appropriate Patient Orientation: Person, Place, Time and Situation Level of Consciousness: Alert Patient Behavior: Appropriate, Talkative, Cooperative, Anxious, Fatigued, Distractible and Good Eye Contact Mood Description: Depressed Affect Description: Flat Patient Cognition Impaired: No Ability to Follow Directions: Good Speech Pattern: Spontaneous Speech Memory Description: Intact Hallucinations: Auditory Delusions: Paranoid Ideation Perceptual Disturbances: Depersonalization and Derealization Thought Process: Distracted and Rumination Thought Content: positive for Perseveration and positive for Suicidal Ideation Depressive Symptoms: Loss of Int. in Activity, Feelings of Worthlessness, Hopelessness, Isolating-Friends/Family, Unhappiness, Increased Fatigue, Thoughts of /Suicide, Low Self Esteem, Loss of Energy and Difficulty Concentrating Judgement: Fair Diagnostics Vital Signs (24Hr): Vital Signs - 24 hr 10/29/22 14:20 10/29/22 18:00 10/29/22 21:23 Temperature 97.1 F Pulse Rate 77 88 74 Respiratory Rate Blood Pressure 127/60 132/88 120/75 Pulse Oximetry 98 Oxygen Delivery Method Room Air 10/30/22 08:03 Temperature 98.2 F Pulse Rate 70 Respiratory Rate 16 Blood Pressure 121/75 Pulse Oximetry 95 Oxygen Delivery Method Room Air BMI result Body Mass Index 31.7 Labs 10/25/22 23:38 10/25/22 23:38 Labs: Laboratory Results - last 48 hr 10/30/22 10/30/22 08:17 08:17 Estimat Average Glucose 111 Hemoglobin A1c % 5.5 Iron 60 TIBC 303 % Saturation 20 Unsat Iron Binding 243 Triglycerides 229 Cholesterol 217 LDL Cholesterol, Calc 131 HDL Cholesterol 41 Vitamin B12 231 Folate 4.7 TSH 2.10 Medications Medications Current Medications Acetaminophen (Acetaminophen 325 Mg Tablet) 650 mg PO Q6H PRN PRN Reason: Headache/Pain Mild Scale (1-3) Al Hydroxide/Mg Hydroxide (Magnesium Hydrox/Alum Hydrox 30 Ml Oral.Susp) 30 ml PO Q6H PRN PRN Reason: Heartburn/Nausea Bupropion HCl (Bupropion Hcl Xl 300 Mg Tab.Er.24h) 300 mg PO DAILY [facility] Last Admin: 10/30/22 08:17 Dose: 300 mg Clonazepam (Clonazepam 1 Mg Tablet) 1 mg PO BEDTIME [facility] Last Admin: 10/29/22 21:24 Dose: 1 mg Clonidine HCl (Clonidine Hcl 0.1 Mg Tablet) 0.1 mg PO TID [facility]; Protocol Last Admin: 10/30/22 08:17 Dose: 0.1 mg Clonidine HCl (Clonidine Hcl 0.1 Mg Tablet) 0.1 mg PO BID PRN; Protocol PRN Reason: withdrawal symptoms Folic Acid (Folic Acid 1 Mg Tablet) 1 mg PO DAILY [facility] Last Admin: 10/30/22 08:17 Dose: 1 mg Gabapentin (Gabapentin 400 Mg Capsule) 800 mg PO TID [facility] Last Admin: 10/30/22 08:17 Dose: 800 mg Hydroxyzine HCl (Hydroxyzine Hcl 25 Mg Tablet) 25 mg PO Q6H PRN PRN Reason: Anxiety Lorazepam (Lorazepam 1 Mg Tablet) 1 mg PO Q2H PRN PRN Reason: CIWA 6-10 Last Admin: 10/30/22 08:17 Dose: 1 mg Lorazepam (Lorazepam 1 Mg Tablet) 2 mg PO Q2H PRN PRN Reason: CIWA 11 and above Last Admin: 10/29/22 18:02 Dose: 2 mg Lorazepam (Lorazepam 1 Mg Tablet) 1 mg PO BID [facility] Last Admin: 10/30/22 08:17 Dose: 1 mg Magnesium Hydroxide (Milk Of Magnesia 30 Ml Oral.Susp) 30 ml PO DAILY PRN PRN Reason: Constipation Nicotine (Nicotine 21 Mg Patch.Td24) 21 mg TRANSDERMA DAILY PRN PRN Reason: smoking cessation Nicotine Polacrilex (Nicotine Polacrilex 2 Mg Gum) 4 mg BUCCAL Q2H PRN PRN Reason: nicotine cravings Olanzapine (Olanzapine 5 Mg Tablet) 5 mg PO TID PRN PRN Reason: agitation Olanzapine (Olanzapine 5 Mg Tablet) 5 mg PO BID [facility] Last Admin: 10/30/22 08:17 Dose: 5 mg Quetiapine Fumarate (Quetiapine Fumarate 200 Mg Tablet) 200 mg PO TID PRN PRN Reason: Anxiety Last Admin: 10/28/22 21:26 Dose: 200 mg Thiamine HCl (Thiamine Hcl 100 Mg Tablet) 100 mg PO DAILY [facility] Last Admin: 10/30/22 08:17 Dose: 100 mg Trazodone HCl (Trazodone Hcl 50 Mg Tablet) 50 mg PO BEDTIME MRX1 PRN PRN Reason: Insomnia Allergies Allergies Allergy/AdvReac Type Severity Reaction Status Date / Time codeine [Codeine] Allergy Unknown N/A Verified 10/27/22 16:36 Assessment & Plan Assessment & Plan (1) PTSD (post-traumatic stress disorder): Status: Acute Code(s): F43.10 - Post-traumatic stress disorder, unspecified (2) Schizoaffective disorder: Status: Acute Code(s): F25.9 - Schizoaffective disorder, unspecified (3) Opioid use disorder: Status: Acute Code(s): F11.99 - Opioid use, unspecified with unspecified opioid-induced disorder (4) Alcohol use disorder: Status: Acute Code(s): F10.90 - Alcohol use, unspecified, uncomplicated Plan 41 yo male, history of PTSD, schizoaffective disorder, alcohol, opiate use disorders, cocaine use intermittently presents with SI with a plan to jump off a bridge. Reports 2.5 years of sobriety with a relapse of ~2 months. Reports increase in paranoia, fear of threats from ex-girlfriend and ongoing grief over the of his in 2021 after a 20 year marriage. Plan: Lorazepam 1 mg bid x 2 days for alcohol withdrawal. Olanzapine 5 mg bid Clonidine 0.1 mg bid prn withdrawal sx. Iron Profile, TSH, B12,Folate, A1C, Lipid Panel 10/30/22: Increase Olanzapine to 5 mg a.m. 10 mg h.s. Melatonin 6 mg HS Vitamin B12 100 mg daily Patient educated on: medication risk/benefits and therapeutic strategies Informed Consent: understands and further education needed Reason for continued inpatient stay Substantial Risk for: harm to self and rapid decompensation Time Spent With Patient Time: Total time managing care of this patient today ____ minutes.
[2022-10-30 20:20] VITALS: BP 108/73; PULSE 112; TEMP 36.3
--- NOTE | 2022-10-30 20:24 | PC.NURSE ---
Pt submitted a Three Day Notice on Saturday10/30/2022 up on Saturday11/02/2022.
[2022-10-30] MEDS: clonazePAM 1 MG TABLET PO (20:28)
[2022-10-30] MEDS: Melatonin 3 MG TABLET 6 MG PO (20:29)
[2022-10-30] MEDS: Acetaminophen 325 MG TABLET 650 MG PO (20:30)
[2022-10-30] MEDS: OLANZapine 10 MG TABLET PO (20:30)
[2022-10-31] MEDS: Cyanocobalamin (Vitamin B-12) 100 MCG TABLET PO (08:59)
[2022-10-31] MEDS: OLANZapine 5 MG TABLET PO (08:59)
[2022-10-31] MEDS: Folic Acid 1 MG TABLET PO (08:59)
[2022-10-31] MEDS: LORazepam 1 MG TABLET PO ×3 (08:59→20:40)
[2022-10-31] MEDS: cloNIDine HCL 0.1 MG TABLET PO ×3 (08:59→20:40)
[2022-10-31] MEDS: buPROPion HCl XL 300 MG TAB.ER.24H PO (08:59)
[2022-10-31] MEDS: Thiamine HCL 100 MG TABLET PO (08:59)
[2022-10-31] MEDS: Gabapentin 400 MG CAPSULE 800 MG PO ×3 (08:59→20:42)
[2022-10-31 09:02] VITALS: BP 142/94; PULSE 113; RESP 18; TEMP 36.1; O2SAT 98
[2022-10-31] MEDS: QUEtiapine Fumarate 200 MG TABLET PO ×3 (09:29→20:51)
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
[2022-10-31 14:16] VITALS: BP 120/73; PULSE 145
[2022-10-31 20:20] VITALS: BP 137/83; PULSE 114; TEMP 36.4; O2SAT 95
[2022-10-31] MEDS: OLANZapine 10 MG TABLET PO (20:39)
[2022-10-31] MEDS: clonazePAM 1 MG TABLET PO (20:39)
[2022-10-31] MEDS: Melatonin 3 MG TABLET 6 MG PO (20:40)
[2022-11-01 07:00] VITALS: BMI 36.8
[2022-11-01] MEDS: Thiamine HCL 100 MG TABLET PO (08:19)
[2022-11-01] MEDS: Cyanocobalamin (Vitamin B-12) 100 MCG TABLET PO (08:19)
[2022-11-01] MEDS: Gabapentin 400 MG CAPSULE 800 MG PO ×3 (08:19→21:23)
[2022-11-01] MEDS: cloNIDine HCL 0.1 MG TABLET PO ×2 (08:19→14:19)
[2022-11-01] MEDS: OLANZapine 5 MG TABLET PO (08:19)
[2022-11-01] MEDS: LORazepam 1 MG TABLET PO ×2 (08:19→16:44)
[2022-11-01] MEDS: Folic Acid 1 MG TABLET PO (08:19)
[2022-11-01] MEDS: buPROPion HCl XL 300 MG TAB.ER.24H PO (08:19)
[2022-11-01] MEDS: QUEtiapine Fumarate 200 MG TABLET PO (08:20)
[2022-11-01 08:22] VITALS: BP 121/65; PULSE 84; RESP 18; TEMP 36.3; O2SAT 96
[2022-11-01 16:33] VITALS: BP 129/71; PULSE 101; RESP 16; TEMP 37.2; O2SAT 96
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
[2022-11-01] MEDS: OLANZapine 10 MG TABLET PO (21:23)
[2022-11-01] MEDS: clonazePAM 1 MG TABLET PO (21:23)
[2022-11-01] MEDS: Melatonin 3 MG TABLET 6 MG PO (21:23)
[2022-11-02] MEDS: Cyanocobalamin (Vitamin B-12) 100 MCG TABLET PO (08:11)
[2022-11-02] MEDS: QUEtiapine Fumarate 200 MG TABLET PO (08:11)
[2022-11-02] MEDS: Thiamine HCL 100 MG TABLET PO (08:11)
[2022-11-02] MEDS: buPROPion HCl XL 300 MG TAB.ER.24H PO (08:11)
[2022-11-02] MEDS: Folic Acid 1 MG TABLET PO (08:11)
[2022-11-02] MEDS: Gabapentin 400 MG CAPSULE 800 MG PO (08:11)
[2022-11-02] MEDS: OLANZapine 5 MG TABLET PO (08:11)
[2022-11-02] MEDS: LORazepam 0.5 MG TABLET PO (08:26)
[2022-11-02 08:27] VITALS: BP 114/68; PULSE 91; RESP 18; TEMP 36.6; O2SAT 98
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
== END 2022-11-02 11:18 | disposition home or self-care (01) | DRG 750 ==
LOC: HO.ED 10-26 07:20 → HO.PM5 10-28 15:47
PROVIDERS: Admitting Provider Psychiatry & Neurology Psychiatry; Emergency Provider Student in an Organized Health Care Education/Training Program; PCP Physician Assistant; Visit Provider Clinical Nurse Specialist Psychiatric/Mental Health, Adult
DX: F25.9 Schizoaffective disorder, unspecified (principal); R45.850 Homicidal ideations; F43.10 Post-traumatic stress disorder, unspecified; F17.210 Nicotine dependence, cigarettes, uncomplicated; Z20.822 Contact with and (suspected) exposure to COVID-19; F11.10 Opioid abuse, uncomplicated; F10.10 Alcohol abuse, uncomplicated; Z71.6 Tobacco abuse counseling; Z88.5 Allergy status to narcotic agent; Z79.899 Other long term (current) drug therapy
CPT/HCPCS: 36415; 80053; 80061; 80307; 81001; 82607; 82746; 83036; 83540; 84443; 85025; 87635; 93005; 99285; S9485

== ENCOUNTER 2022-11-05 07:41 | Inpatient (IN) | payer OTHER, SELFPAY ==
--- NOTE | ~2022-11-05 | XR_ITS ---
EXAMINATION: XR CHEST CLINICAL INFORMATION: Shortness of breath and congestion COMPARISON: None available. TECHNIQUE: 2 views of the chest were obtained. FINDINGS: The cardiac and mediastinal contours are normal. There is subsegmental atelectasis at the left lung base. The lungs are otherwise clear. No pleural effusion or pneumothorax. Surgical hardware in the left clavicle. Bony structures are otherwise unremarkable. XR/XR chest 2V IMPRESSION: Subsegmental atelectasis at the left lung base.
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
[2022-11-05 07:43] VITALS: BP 131/89; PULSE 113; RESP 20; TEMP 36.3; O2SAT 97; BMI 38.7
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
[2022-11-05 09:53] LABS: COVID-19 Test Negative (Negative); IDNOW Serial# BCCEAD1C
[2022-11-05 11:54] LABS: MANUAL DIFF FLAG NO
[2022-11-05 11:59] LABS: Basophils Percent Auto 0.4 % (0-2); Eosinophils Absolute Auto 0.1 X10*3/uL (0.0-0.4); Eosinophils Percent Auto 2.1 % (0-4); Hematocrit 42.4 % (42.0-52.0); Imm Gran Abs Auto 0.01 X10*3/uL (0.00-0.03); Imm Gran Pct Auto 0.2 % (0.0-0.4); Lymphocytes Absolute Auto 1.9 X10*3/uL (1.2-4.9); Mean Corpuscular Hemoglobin 30.2 pg (27.0-33.0); Mean Corpuscular Volume 91.6 fL (80.0-98.0); Mean Platelet Volume 11.4 fL (9.4-12.4); Monocytes Absolute Auto 0.7 X10*3/uL (0.1-1.2); Monocytes Percent Auto 11.8 % (2-11); Neutrophils Absolute Auto 2.9 x10*3/uL (2.0-8.3); Neutrophils Percent Auto 51.5 % (45-73); Platelet Count 162 X10*3/uL (160-400); Red Blood Count 4.63 X10*6/uL (4.60-5.80); White Blood Count 5.6 X10*3/uL (4.8-10.8)
[2022-11-05 12:18] LABS: Alanine Aminotransferase 37 U/L (0-40); Albumin Level 3.9 g/dL (3.5-5.0); Alkaline Phosphatase 78 U/L (39-117); Anion Gap 16 (12-20); Aspartate Amino Transferase 33 U/L (5-37); Bilirubin Direct 0.1 mg/dL (0.0-0.5); Bilirubin Total 0.8 mg/dL (0.0-1.0); Blood Urea Nitrogen 13 mg/dL (9-16); Calcium 8.8 mg/dL (8.4-10.2); Carbon Dioxide 23 mmol/L (22-29); Chloride 101 mmol/L (96-108); Creatinine Clr Calc Pharmacy 189.5; Estimated Glomerular Filt Rate > 60; Ethanol < 10 mg/dL; Glucose Random 98 mg/dL (60-115); Potassium 4.4 mmol/L (3.3-5.1); Sodium 136 mmol/L (135-145)
[2022-11-05 15:09] LABS: Appearance Urine Clear; Color Urine Dark Yellow; Glucose Urine UA Negative (Negative); Leukocyte Esterase Urine Negative (Negative); Nitrite Urine Negative (Negative); Specific Gravity - Urine >= 1.030 (1.005-1.025); UMIC TRIGGER UACC YES; Urine Blood Negative (Negative); Urine Ketones 15 mg/dL (Negative); Urine Protein 30 (1+) mg/dL (Neg-Trace)
[2022-11-05 15:22] LABS: Bacteria Urine None Seen (None Seen); Hyaline Casts Urine >20 /LPF (0-2); RBC Urine 0-2 /HPF (0-2); UACC Culture Trigger YES
[2022-11-05 15:28] LABS: Amphetamine Screen Urine Not Detected (Not Detect); Barbiturates, Urine Not Detected (Not Detect); Benzodiazepines Screen Urine POSITIVE (Not Detect); Cannabinoid Screen Urine Not Detected (Not Detect); Cocaine Screen Urine POSITIVE (Not Detect); Fentanyl, urine POSITIVE (Not Detect); Opiate Screen Urine Not Detected (Not Detect); Phencyclidine Screen Urine Not Detected (Not Detect)
[2022-11-05] MEDS: Gabapentin 400 MG CAPSULE 800 MG PO (21:26)
[2022-11-05] MEDS: Melatonin 3 MG TABLET PO (21:26)
[2022-11-05] MEDS: QUEtiapine Fumarate 200 MG TABLET PO (21:26)
[2022-11-05] MEDS: cloNIDine HCL 0.1 MG TABLET PO (21:26)
[2022-11-05] MEDS: clonazePAM 1 MG TABLET PO (21:54)
--- NOTE | 2022-11-06 06:14 | PC.NURSE ---
Patient slept intermittently, no distress observed/reported, medication compliant, VSS, labs completed/resulted, disposition per care team is voluntary inpatient bed search, behavior non concerning but at time demanding, will continue to monitor,
[2022-11-06 06:30] VITALS: BP 115/53; PULSE 97; RESP 17; TEMP 36.9; O2SAT 96
[2022-11-06] MEDS: Nicotine 21 MG PATCH.TD24 TRANSDERMA (08:26)
[2022-11-06] MEDS: Thiamine HCL 100 MG TABLET PO (08:28)
[2022-11-06] MEDS: Folic Acid 1 MG TABLET PO (08:28)
[2022-11-06] MEDS: cloNIDine HCL 0.1 MG TABLET PO ×3 (08:28→19:19)
[2022-11-06] MEDS: Cyanocobalamin (Vitamin B-12) 100 MCG TABLET PO (08:28)
[2022-11-06] MEDS: Gabapentin 400 MG CAPSULE 800 MG PO ×3 (08:28→19:19)
[2022-11-06] MEDS: buPROPion HCl XL 300 MG TAB.ER.24H PO (08:39)
--- NOTE | 2022-11-06 08:40 | PC.NURSE ---
Pt up. Ate Breakfast. Requesting Ativan. Able to redirect X2. Meds given. Pt wanting CSS or TSS services. Pt in bed resting comfortably at this time. No dangerous behaviors noted.
--- NOTE | 2022-11-06 10:07 | PC.NURSE ---
Pt woke to bathroom.
[2022-11-06] MEDS: QUEtiapine Fumarate 200 MG TABLET PO ×2 (10:13→19:18)
--- NOTE | 2022-11-06 10:15 | PC.NURSE ---
Pt verbally agitated, medicated with PRN. Pt requesting to see a MD now. MD notified.
--- NOTE | 2022-11-06 11:19 | PC.NURSE ---
Pt to nursing station after waking to got to the bathroom, verbally accusatory, notified. in to see Pt.
[2022-11-06] MEDS: Ibuprofen 800 MG TABLET PO (13:18)
--- NOTE | 2022-11-06 13:24 | ECG_ITS ---
Test Reason : check for prolong QT Blood Pressure : / mmHG Vent. Rate : 094 BPM Atrial Rate : 094 BPM P-R Int : 158 ms QRS Dur : 080 ms QT Int : 364 ms P-R-T Axes : 034 038 009 degrees QTc Int : 455 ms Normal sinus rhythm Cannot rule out Anterior infarct , age undetermined Abnormal ECG When compared with ECG of 28-OCT-2022 11:53, Vent. rate has increased BY 31 BPM Nonspecific T wave abnormality now evident in Lateral leads Referred By: Kim Bassett Electronically Signed By:Yaron Freitas
[2022-11-06 15:07] VITALS: BP 101/46; PULSE 94; RESP 18; TEMP 36.3; O2SAT 97
[2022-11-06 17:26] VITALS: BP 95/62; PULSE 85; RESP 16; TEMP 36.4; O2SAT 99
[2022-11-06 18:00] VITALS: BP 133/72; PULSE 83; TEMP 36.3; O2SAT 99
[2022-11-06] MEDS: Melatonin 3 MG TABLET PO (19:18)
[2022-11-06] MEDS: clonazePAM 1 MG TABLET PO (19:18)
--- NOTE | 2022-11-06 22:09 | PC.ADMIT ---
pt is a 41 year old male who presented to [facility] with SI with a plan. pt had a recent inpatient stay on M5 in October 2022. pt has a [facility] of opioid use disorder, cocaine use disorder, and mood disorder. during admission, patient was tired and appeared to be drifting in and out of sleep. pt is a CV. pt refused to sign legals and asked can we do them tomorrow? pt has been sleeping most of time since he arrived on the unit. start treatment plan and promote safety.
[2022-11-07] MEDS: OLANZapine 5 MG TABLET PO ×2 (02:09→12:55)
[2022-11-07 08:16] VITALS: BP 120/61; PULSE 84; RESP 16; TEMP 36.6; O2SAT 95
[2022-11-07] MEDS: cloNIDine HCL 0.1 MG TABLET PO ×3 (08:17→20:36)
[2022-11-07] MEDS: Thiamine HCL 100 MG TABLET PO (08:17)
[2022-11-07] MEDS: Cyanocobalamin (Vitamin B-12) 100 MCG TABLET PO (08:17)
[2022-11-07] MEDS: buPROPion HCl XL 300 MG TAB.ER.24H PO (08:17)
[2022-11-07] MEDS: Nicotine 21 MG PATCH.TD24 TRANSDERMA (08:17)
[2022-11-07] MEDS: Folic Acid 1 MG TABLET PO (08:17)
[2022-11-07] MEDS: Gabapentin 400 MG CAPSULE 800 MG PO ×3 (08:33→20:35)
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
[2022-11-07] MEDS: QUEtiapine Fumarate 200 MG TABLET PO ×2 (10:26→18:04)
[2022-11-07] MEDS: LORazepam 0.5 MG TABLET PO ×2 (13:14→20:36)
[2022-11-07] MEDS: OLANZapine 10 MG TABLET PO (20:35)
[2022-11-07] MEDS: Melatonin 3 MG TABLET PO (20:35)
[2022-11-07] MEDS: clonazePAM 1 MG TABLET PO (20:36)
[2022-11-07 22:36] VITALS: BP 130/86; PULSE 120; TEMP 36.2; O2SAT 96
--- NOTE | 2022-11-08 00:23 | PC.NURSE ---
Patient was too tired to have labs drawn or provide urine specimen; he said he will do labs (11/08/22)
[2022-11-08 07:00] VITALS: BMI 39.0
[2022-11-08] MEDS: Multivitamin TABLET 1 TAB PO (08:59)
[2022-11-08] MEDS: OLANZapine 10 MG TABLET PO ×2 (08:59→20:23)
[2022-11-08] MEDS: Folic Acid 1 MG TABLET PO (08:59)
[2022-11-08] MEDS: Gabapentin 400 MG CAPSULE 800 MG PO ×3 (08:59→20:23)
[2022-11-08] MEDS: Nicotine 21 MG PATCH.TD24 TRANSDERMA (08:59)
[2022-11-08] MEDS: buPROPion HCl XL 300 MG TAB.ER.24H PO (09:00)
[2022-11-08] MEDS: Thiamine HCL 100 MG TABLET PO (09:00)
[2022-11-08] MEDS: LORazepam 0.5 MG TABLET PO (09:00)
[2022-11-08] MEDS: cloNIDine HCL 0.1 MG TABLET PO ×3 (09:00→20:24)
[2022-11-08] MEDS: Cyanocobalamin (Vitamin B-12) 100 MCG TABLET PO (09:00)
[2022-11-08] MEDS: QUEtiapine Fumarate 200 MG TABLET PO ×2 (09:17→14:59)
--- NOTE | 2022-11-08 13:49 | P.PNPSI_ITS ---
Subjective Subjective Date of Service: 11/08/22 Reason For Visit: Delusional /Si Subjective Notes: Conditional Voluntary Healthcare Proxy: No Guardianship: No Medical Problems Affecting Mental Status: No Interim History: Dionisio continues to report auditory perceptual alterations, lability of mood and anxiety. Medication review with changes. Pt continues to want to attend [facility] upon discharge. Medication Compliance: Yes Side effects from medications: No Attending Groups: Intermittent Review of Systems Acute medical concerns: No Medical Review of Systems: unchanged Mental Status Exam Mental Status Exam Patient Appearance: Fatigued Patient Orientation: Person, Place, Time and Situation Level of Consciousness: Alert Patient Behavior: Appropriate, Talkative, Cooperative and Good Eye Contact Mood Description: Labile Affect Description: Labile Patient Cognition Impaired: No Ability to Follow Directions: Fair Speech Pattern: Spontaneous Speech Memory Description: Intact Hallucinations: Auditory Delusions: Not Present Thought Process: Distracted and Rumination Thought Content: positive for Circumstantial, positive for Perseveration, positive for Preoccupation and positive for Suicidal Ideation Depressive Symptoms: Increased Anxiety, Increased Irritability, Difficulty Sleeping, Hopelessness, Unhappiness, Low Self Esteem, Loss of Energy and Difficulty Concentrating Abnormal Motor Activity Signs and Symptoms: Agitation Judgement: Fair Diagnostics Vital Signs (24Hr): Vital Signs - 24 hr 11/07/22 22:36 Temperature 97.1 F Pulse Rate 120 H Blood Pressure 130/86 Pulse Oximetry 96 Oxygen Delivery Method Room Air BMI result Body Mass Index 38.7 Labs 11/05/22 11:50 11/05/22 11:50 Medications Medications Current Medications Acetaminophen (Acetaminophen 325 Mg Tablet) 650 mg PO Q6H PRN PRN Reason: Headache/Pain Mild Scale (1-3) Al Hydroxide/Mg Hydroxide (Magnesium Hydrox/Alum Hydrox 30 Ml Oral.Susp) 30 ml PO Q6H PRN PRN Reason: Heartburn/Nausea Bupropion HCl (Bupropion Hcl Xl 300 Mg Tab.Er.24h) 300 mg PO DAILY [facility] Last Admin: 11/08/22 09:00 Dose: 300 mg Clonazepam (Clonazepam 1 Mg Tablet) 1 mg PO BID [facility] Clonidine HCl (Clonidine Hcl 0.1 Mg Tablet) 0.1 mg PO TID [facility]; Protocol Last Admin: 11/08/22 09:00 Dose: 0.1 mg Cyanocobalamin (Cyanocobalamin (Vitamin B-12) 100 Mcg Tablet) 100 mcg PO DAILY [facility] Last Admin: 11/08/22 09:00 Dose: 100 mcg Divalproex Sodium (Divalproex Sodium Er 500 Mg Tab.Er.24h) 500 mg PO BEDTIME [facility] Folic Acid (Folic Acid 1 Mg Tablet) 1 mg PO DAILY [facility] Last Admin: 11/08/22 08:59 Dose: 1 mg Gabapentin (Gabapentin 400 Mg Capsule) 800 mg PO TID [facility] Last Admin: 11/08/22 08:59 Dose: 800 mg Magnesium Hydroxide (Milk Of Magnesia 30 Ml Oral.Susp) 30 ml PO DAILY PRN PRN Reason: Constipation Melatonin (Melatonin 3 Mg Tablet) 3 mg PO BEDTIME [facility] Last Admin: 11/07/22 20:35 Dose: 3 mg Multivitamins/Vitamin C (Multivitamin Tablet) 1 tab PO DAILY [facility] Last Admin: 11/08/22 08:59 Dose: 1 tab Nicotine (Nicotine 21 Mg Patch.Td24) 21 mg TRANSDERMA DAILY [facility] Last Admin: 11/08/22 08:59 Dose: 21 mg Nicotine Polacrilex (Nicotine Polacrilex 2 Mg Gum) 2 mg BUCCAL Q2H PRN PRN Reason: Nicotine Cravings Olanzapine (Olanzapine 5 Mg Tablet) 5 mg PO TID PRN PRN Reason: agitation Last Admin: 11/07/22 12:55 Dose: 5 mg Olanzapine (Olanzapine 10 Mg Tablet) 10 mg PO BID [facility] Last Admin: 11/08/22 08:59 Dose: 10 mg Quetiapine Fumarate (Quetiapine Fumarate 200 Mg Tablet) 200 mg PO TID PRN PRN Reason: Agitation Last Admin: 11/08/22 09:17 Dose: 200 mg Thiamine HCl (Thiamine Hcl 100 Mg Tablet) 100 mg PO DAILY [facility] Last Admin: 11/08/22 09:00 Dose: 100 mg Trazodone HCl (Trazodone Hcl 50 Mg Tablet) 50 mg PO BEDTIME MRX1 PRN PRN Reason: Insomnia Allergies Allergies Allergy/AdvReac Type Severity Reaction Status Date / Time codeine [Codeine] Allergy Unknown N/A Verified 10/27/22 16:36 Assessment & Plan Assessment & Plan (1) Polysubstance abuse: Status: Acute Code(s): F19.10 - Other psychoactive substance abuse, uncomplicated (2) PTSD (post-traumatic stress disorder): Status: Acute Code(s): F43.10 - Post-traumatic stress disorder, unspecified (3) Schizoaffective disorder: Status: Acute Code(s): F25.9 - Schizoaffective disorder, unspecified (4) Suicidal ideation: Status: Acute Code(s): R45.851 - Suicidal ideations (5) Alcohol use disorder: Status: Acute Code(s): F10.90 - Alcohol use, unspecified, uncomplicated (6) Opioid use disorder: Status: Acute Code(s): F11.99 - Opioid use, unspecified with unspecified opioid-induced disorder Plan 41 yo male, history of schizoaffective disorder, PTSD, polysubstance use disorder, opiate use disorder, alcohol use disorder presents after a recent discharge with [facility] with plan, auditory perceptual alterations and having relapsed. Plan: Olanzapine 10 mg bid Lorazepam 0.5 mg bid x 2 days for withdrawal sx. MVI i tab daily Pt asks to be considered for [facility] admission. Continue remainder of regime and will adjust as needed. 11/08/22: Depakote ER 500 mg HS Discontinue Lorazepam Klonopin 1 mg bid Continue remainder of regime Patient educated on: medication risk/benefits and therapeutic strategies Informed Consent: understands Reason for continued inpatient stay Substantial Risk for: harm to self, inability to function and rapid decompensation Time Spent With Patient Time: Total time managing care of this patient today ____ minutes.
[2022-11-08] MEDS: OLANZapine 5 MG TABLET PO (14:59)
--- NOTE | 2022-11-08 15:21 | PC.ADMIT ---
pt reports he is missing his dentures. Dentures are not recorded on pt belongings. pt reports they weren;t recorded because they were in my mouth . Pt reports he beleives he left them on the table in the pod. Director notified
[2022-11-08 16:57] VITALS: BP 126/78; PULSE 68; RESP 16; TEMP 36.4; O2SAT 98
[2022-11-08 17:00] LABS: CT PCR NOT DETECTED (Not Detect.); NG PCR NOT DETECTED (Not Detect.)
[2022-11-08] MEDS: Melatonin 3 MG TABLET PO (20:23)
[2022-11-08] MEDS: clonazePAM 1 MG TABLET PO (20:23)
[2022-11-08] MEDS: Divalproex Sodium ER 500 MG TAB.ER.24H PO (20:23)
--- NOTE | 2022-11-08 21:05 | PC.NURSE ---
Pt was angry because he could not get an ice cream. Pt started throwing a pitcher of [id number] on the floor. Security called and calm was restored. No restraint.
[2022-11-09 03:08] LABS: Syphilis Screen Nonreactive (Nonreactive)
[2022-11-09 04:16] LABS: HBS Num1 > 1000.00 mIU/mL (0-7.99); HBsAGNum1 0.22 S/CO (0.00-0.99); HIV AB/AG Nonreactive (Nonreactive); HIV Num 1 0.12 S/CO (0.00-0.99); Hepatitis A Antibody IgM 0.11 Index (0-0.79); Hepatitis B Core Antibody Nonreactive (Nonreactive); Hepatitis B Surface Antigen Negative (Negative); ~HepC Num1 14.49 S/CO (0.00-0.79); ~Hepatitis A Antibody IgM Nonreactive (Nonreactive); ~Hepatitis B Surface Antibody REACTIVE (Nonreactive); ~Hepatitis C Antibody Reactive (Nonreactive)
[2022-11-09] MEDS: OLANZapine 5 MG TABLET PO ×2 (05:59→15:39)
[2022-11-09] MEDS: Thiamine HCL 100 MG TABLET PO (08:16)
[2022-11-09] MEDS: cloNIDine HCL 0.1 MG TABLET PO ×3 (08:16→19:07)
[2022-11-09] MEDS: Multivitamin TABLET 1 TAB PO (08:16)
[2022-11-09] MEDS: Cyanocobalamin (Vitamin B-12) 100 MCG TABLET PO (08:16)
[2022-11-09] MEDS: clonazePAM 1 MG TABLET PO ×2 (08:16→19:07)
[2022-11-09] MEDS: buPROPion HCl XL 300 MG TAB.ER.24H PO (08:16)
[2022-11-09] MEDS: Folic Acid 1 MG TABLET PO (08:16)
[2022-11-09] MEDS: Gabapentin 400 MG CAPSULE 800 MG PO ×3 (08:17→19:07)
[2022-11-09] MEDS: OLANZapine 10 MG TABLET PO (08:17)
[2022-11-09] MEDS: Nicotine 21 MG PATCH.TD24 TRANSDERMA (08:17)
[2022-11-09 08:21] VITALS: BP 141/87; PULSE 88; RESP 18; TEMP 36.3; O2SAT 99
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
[2022-11-09] MEDS: QUEtiapine Fumarate 200 MG TABLET PO ×3 (11:27→19:07)
[2022-11-09 14:15] VITALS: BP 132/70; PULSE 108
[2022-11-09 18:00] VITALS: BP 130/75; PULSE 70
[2022-11-09] MEDS: OLANZapine 10 MG TABLET 20 MG PO (19:06)
[2022-11-09] MEDS: Divalproex Sodium ER 500 MG TAB.ER.24H 1000 MG PO (19:07)
[2022-11-09] MEDS: Melatonin 3 MG TABLET PO (19:07)
[2022-11-10 08:05] VITALS: BP 137/89; PULSE 91; RESP 16; TEMP 36.2; O2SAT 98
[2022-11-10] MEDS: OLANZapine 10 MG TABLET 20 MG PO ×2 (08:07→20:24)
[2022-11-10] MEDS: Cyanocobalamin (Vitamin B-12) 100 MCG TABLET PO (08:07)
[2022-11-10] MEDS: Multivitamin TABLET 1 TAB PO (08:07)
[2022-11-10] MEDS: cloNIDine HCL 0.1 MG TABLET PO ×3 (08:07→20:23)
[2022-11-10] MEDS: Gabapentin 400 MG CAPSULE 800 MG PO ×3 (08:07→20:23)
[2022-11-10] MEDS: Folic Acid 1 MG TABLET PO (08:07)
[2022-11-10] MEDS: buPROPion HCl XL 300 MG TAB.ER.24H PO (08:07)
[2022-11-10] MEDS: Thiamine HCL 100 MG TABLET PO (08:07)
[2022-11-10] MEDS: clonazePAM 1 MG TABLET PO ×3 (08:07→20:23)
[2022-11-10] MEDS: Nicotine 21 MG PATCH.TD24 TRANSDERMA (08:08)
[2022-11-10] MEDS: QUEtiapine Fumarate 200 MG TABLET PO ×2 (08:35→15:45)
--- NOTE | 2022-11-10 08:55 | HO.PSYCHPN ---
Subjective Subjective Date of Service: 11/10/22 Reason For Visit: Delusional /Si Subjective Notes: Conditional Voluntary Interim History: Pt seen and discussed with team today. Review of meds with pt. Discussed decreasing Depakote as pt is feeling improved benefit with Olanzapine. Reports sleep and appetite are adequate Medication Compliance: Yes Side effects from medications: No Attending Groups: Intermittent Review of Systems Acute medical concerns: No Medical Review of Systems: unchanged Mental Status Exam Mental Status Exam Patient Appearance: Appropriate Patient Orientation: Person, Place, Time and Situation Level of Consciousness: Alert Patient Behavior: Appropriate, Talkative, Cooperative and Good Eye Contact Mood Description: Withdrawn Affect Description: Flat Patient Cognition Impaired: No Ability to Follow Directions: Good Speech Pattern: Spontaneous Speech Memory Description: Intact Hallucinations: Auditory Delusions: Paranoid Ideation and Present Perceptual Disturbances: Derealization Thought Process: Distracted Thought Content: positive for Perseveration Depressive Symptoms: Hopelessness, Isolating-Friends/Family and Low Self Esteem Judgement: Fair Diagnostics Vital Signs (24Hr): Vital Signs - 24 hr 11/09/22 14:15 11/09/22 18:00 11/10/22 08:05 Temperature 97.2 F Pulse Rate 108 H 70 91 Respiratory Rate 16 Blood Pressure 132/70 130/75 137/89 Pulse Oximetry 98 Oxygen Delivery Method Room Air BMI result Body Mass Index 39.0 Labs 11/05/22 11:50 11/05/22 11:50 Labs: Laboratory Results - last 48 hr 11/08/22 11/08/22 11/08/22 09:27 09:27 14:36 T.pallidum Ab (EIA) Nonreactive Chlam trachomat DNA PCR NOT DETECTED Hepatitis A IgM Ab Nonreactive Hep Bs Antigen Negative Hep Bs Antibody REACTIVE Hep B Core Total Ab Nonreactive Hepatitis C Ab (EIA) Reactive H HIV 1&2 Ab/P24 Ag 4thGn Nonreactive N.gonorrhoeae DNA (PCR) NOT DETECTED Medications Medications Current Medications Acetaminophen (Acetaminophen 325 Mg Tablet) 650 mg PO Q6H PRN PRN Reason: Headache/Pain Mild Scale (1-3) Al Hydroxide/Mg Hydroxide (Magnesium Hydrox/Alum Hydrox 30 Ml Oral.Susp) 30 ml PO Q6H PRN PRN Reason: Heartburn/Nausea Bupropion HCl (Bupropion Hcl Xl 300 Mg Tab.Er.24h) 300 mg PO DAILY [facility] Last Admin: 11/10/22 08:07 Dose: 300 mg Clonazepam (Clonazepam 1 Mg Tablet) 1 mg PO BID [facility] Last Admin: 11/10/22 08:07 Dose: 1 mg Clonazepam (Clonazepam 1 Mg Tablet) 1 mg PO DAILY PRN PRN Reason: agitation, anxiety Clonidine HCl (Clonidine Hcl 0.1 Mg Tablet) 0.1 mg PO TID [facility]; Protocol Last Admin: 11/10/22 08:07 Dose: 0.1 mg Cyanocobalamin (Cyanocobalamin (Vitamin B-12) 100 Mcg Tablet) 100 mcg PO DAILY [facility] Last Admin: 11/10/22 08:07 Dose: 100 mcg Divalproex Sodium (Divalproex Sodium Er 500 Mg Tab.Er.24h) 1,000 mg PO BEDTIME [facility] Last Admin: 11/09/22 19:07 Dose: 1,000 mg Folic Acid (Folic Acid 1 Mg Tablet) 1 mg PO DAILY [facility] Last Admin: 11/10/22 08:07 Dose: 1 mg Gabapentin (Gabapentin 400 Mg Capsule) 800 mg PO TID [facility] Last Admin: 11/10/22 08:07 Dose: 800 mg Magnesium Hydroxide (Milk Of Magnesia 30 Ml Oral.Susp) 30 ml PO DAILY PRN PRN Reason: Constipation Melatonin (Melatonin 3 Mg Tablet) 3 mg PO BEDTIME [facility] Last Admin: 11/09/22 19:07 Dose: 3 mg Multivitamins/Vitamin C (Multivitamin Tablet) 1 tab PO DAILY [facility] Last Admin: 11/10/22 08:07 Dose: 1 tab Nicotine (Nicotine 21 Mg Patch.Td24) 21 mg TRANSDERMA DAILY [facility] Last Admin: 11/10/22 08:08 Dose: 21 mg Nicotine Polacrilex (Nicotine Polacrilex 2 Mg Gum) 2 mg BUCCAL Q2H PRN PRN Reason: Nicotine Cravings Olanzapine (Olanzapine 5 Mg Tablet) 5 mg PO TID PRN PRN Reason: agitation Last Admin: 11/09/22 15:39 Dose: 5 mg Olanzapine (Olanzapine 10 Mg Tablet) 20 mg PO BID [facility] Last Admin: 11/10/22 08:07 Dose: 20 mg Quetiapine Fumarate (Quetiapine Fumarate 200 Mg Tablet) 200 mg PO TID PRN PRN Reason: Agitation Last Admin: 11/10/22 08:35 Dose: 200 mg Thiamine HCl (Thiamine Hcl 100 Mg Tablet) 100 mg PO DAILY [facility] Last Admin: 11/10/22 08:07 Dose: 100 mg Trazodone HCl (Trazodone Hcl 50 Mg Tablet) 50 mg PO BEDTIME MRX1 PRN PRN Reason: Insomnia Allergies Allergies Allergy/AdvReac Type Severity Reaction Status Date / Time codeine [Codeine] Allergy Unknown N/A Verified 10/27/22 16:36 Assessment & Plan Assessment & Plan (1) Polysubstance abuse: Status: Acute Code(s): F19.10 - Other psychoactive substance abuse, uncomplicated (2) PTSD (post-traumatic stress disorder): Status: Acute Code(s): F43.10 - Post-traumatic stress disorder, unspecified (3) Schizoaffective disorder: Status: Acute Code(s): F25.9 - Schizoaffective disorder, unspecified (4) Suicidal ideation: Status: Acute Code(s): R45.851 - Suicidal ideations (5) Alcohol use disorder: Status: Acute Code(s): F10.90 - Alcohol use, unspecified, uncomplicated (6) Opioid use disorder: Status: Acute Code(s): F11.99 - Opioid use, unspecified with unspecified opioid-induced disorder Plan 41 yo male, history of schizoaffective disorder, PTSD, polysubstance use disorder, opiate use disorder, alcohol use disorder presents after a recent discharge with [facility] with plan, auditory perceptual alterations and having relapsed. Plan: Olanzapine 10 mg bid Lorazepam 0.5 mg bid x 2 days for withdrawal sx. MVI i tab daily Pt asks to be considered for [facility] admission. Continue remainder of regime and will adjust as needed. 11/08/22: Depakote ER 500 mg HS Discontinue Lorazepam Klonopin 1 mg bid Continue remainder of regime 11/09/22 Breakthrough sx Add Klonopin 1 mg daily prn Increase Depakote ER to 1000 mg HS Increase Olanzapine to 20 mg bid 11/10/22 Decrease Depakote to 500 mg ER HS Patient educated on: medication risk/benefits Informed Consent: understands Reason for continued inpatient stay Substantial Risk for: rapid decompensation Time Spent With Patient Time: Total time managing care of this patient today ____ minutes.
[2022-11-10 15:24] VITALS: BP 126/60; PULSE 100
[2022-11-10 20:00] VITALS: BP 138/92; PULSE 110; TEMP 36.6; O2SAT 94
[2022-11-10] MEDS: Divalproex Sodium ER 500 MG TAB.ER.24H 1000 MG PO (20:23)
[2022-11-10] MEDS: Melatonin 3 MG TABLET PO (20:23)
[2022-11-10] MEDS: Divalproex Sodium ER 500 MG TAB.ER.24H PO (21:49)
[2022-11-11] MEDS: OLANZapine 5 MG TABLET PO ×2 (05:32→18:38)
[2022-11-11 08:00] VITALS: BP 132/89; PULSE 100; RESP 16; TEMP 36.1; O2SAT 96
[2022-11-11] MEDS: cloNIDine HCL 0.1 MG TABLET PO ×3 (08:14→20:58)
[2022-11-11] MEDS: OLANZapine 10 MG TABLET 20 MG PO ×2 (08:14→20:59)
[2022-11-11] MEDS: Thiamine HCL 100 MG TABLET PO (08:14)
[2022-11-11] MEDS: Cyanocobalamin (Vitamin B-12) 100 MCG TABLET PO (08:14)
[2022-11-11] MEDS: Gabapentin 400 MG CAPSULE 800 MG PO ×3 (08:14→20:58)
[2022-11-11] MEDS: clonazePAM 1 MG TABLET PO ×3 (08:14→20:59)
[2022-11-11] MEDS: Folic Acid 1 MG TABLET PO (08:14)
[2022-11-11] MEDS: buPROPion HCl XL 300 MG TAB.ER.24H PO (08:14)
[2022-11-11] MEDS: Multivitamin TABLET 1 TAB PO (08:14)
[2022-11-11] MEDS: Nicotine 21 MG PATCH.TD24 TRANSDERMA (08:16)
--- NOTE | 2022-11-11 16:28 | HO.PSYCHPN ---
Subjective Subjective Date of Service: 11/11/22 Reason For Visit: Delusional /Si Subjective Notes: Conditional Voluntary Interim History: Pt was seen and reviewed with team He reports to team some sx panic. He is unsure if this may be skilled nursing withdrawal of methadone as it is a new sx. Discussed with pt. No new changes as of this time. Reports adequate sleep and appetite. Medication Compliance: Yes Side effects from medications: No Attending Groups: No Review of Systems Acute medical concerns: No Medical Review of Systems: unchanged Mental Status Exam Mental Status Exam Patient Appearance: Appropriate Patient Orientation: Person, Place, Time and Situation Level of Consciousness: Alert Patient Behavior: Appropriate, Talkative, Cooperative and Good Eye Contact Mood Description: Withdrawn Affect Description: Flat Patient Cognition Impaired: No Ability to Follow Directions: Good Speech Pattern: Spontaneous Speech Memory Description: Intact Hallucinations: Auditory Delusions: Paranoid Ideation and Present Perceptual Disturbances: Derealization Thought Process: Distracted Thought Content: positive for Perseveration Depressive Symptoms: Hopelessness, Isolating-Friends/Family and Low Self Esteem Judgement: Fair Diagnostics Vital Signs (24Hr): Vital Signs - 24 hr 11/10/22 20:00 11/11/22 08:00 Temperature 97.8 F 97 F Pulse Rate 110 H 100 Respiratory Rate 16 Blood Pressure 138/92 H 132/89 Pulse Oximetry 94 96 Oxygen Delivery Method Room Air Room Air BMI result Body Mass Index 39.0 Labs 11/05/22 11:50 11/05/22 11:50 Medications Medications Current Medications Acetaminophen (Acetaminophen 325 Mg Tablet) 650 mg PO Q6H PRN PRN Reason: Headache/Pain Mild Scale (1-3) Al Hydroxide/Mg Hydroxide (Magnesium Hydrox/Alum Hydrox 30 Ml Oral.Susp) 30 ml PO Q6H PRN PRN Reason: Heartburn/Nausea Bupropion HCl (Bupropion Hcl Xl 300 Mg Tab.Er.24h) 300 mg PO DAILY [facility] Last Admin: 11/11/22 08:14 Dose: 300 mg Clonazepam (Clonazepam 1 Mg Tablet) 1 mg PO BID [facility] Last Admin: 11/11/22 08:14 Dose: 1 mg Clonazepam (Clonazepam 1 Mg Tablet) 1 mg PO DAILY PRN PRN Reason: agitation, anxiety Last Admin: 11/11/22 14:23 Dose: 1 mg Clonidine HCl (Clonidine Hcl 0.1 Mg Tablet) 0.1 mg PO TID [facility]; Protocol Last Admin: 11/11/22 14:23 Dose: 0.1 mg Cyanocobalamin (Cyanocobalamin (Vitamin B-12) 100 Mcg Tablet) 100 mcg PO DAILY [facility] Last Admin: 11/11/22 08:14 Dose: 100 mcg Divalproex Sodium (Divalproex Sodium Er 500 Mg Tab.Er.24h) 500 mg PO BEDTIME [facility] Last Admin: 11/10/22 21:49 Dose: 500 mg Folic Acid (Folic Acid 1 Mg Tablet) 1 mg PO DAILY [facility] Last Admin: 11/11/22 08:14 Dose: 1 mg Gabapentin (Gabapentin 400 Mg Capsule) 800 mg PO TID [facility] Last Admin: 11/11/22 14:23 Dose: 800 mg Magnesium Hydroxide (Milk Of Magnesia 30 Ml Oral.Susp) 30 ml PO DAILY PRN PRN Reason: Constipation Melatonin (Melatonin 3 Mg Tablet) 3 mg PO BEDTIME [facility] Last Admin: 11/10/22 20:23 Dose: 3 mg Multivitamins/Vitamin C (Multivitamin Tablet) 1 tab PO DAILY [facility] Last Admin: 11/11/22 08:14 Dose: 1 tab Nicotine (Nicotine 21 Mg Patch.Td24) 21 mg TRANSDERMA DAILY [facility] Last Admin: 11/11/22 08:16 Dose: 21 mg Nicotine Polacrilex (Nicotine Polacrilex 2 Mg Gum) 2 mg BUCCAL Q2H PRN PRN Reason: Nicotine Cravings Olanzapine (Olanzapine 5 Mg Tablet) 5 mg PO TID PRN PRN Reason: agitation Last Admin: 11/11/22 05:32 Dose: 5 mg Olanzapine (Olanzapine 10 Mg Tablet) 20 mg PO BID [facility] Last Admin: 11/11/22 08:14 Dose: 20 mg Quetiapine Fumarate (Quetiapine Fumarate 200 Mg Tablet) 200 mg PO TID PRN PRN Reason: Agitation Last Admin: 11/10/22 15:45 Dose: 200 mg Thiamine HCl (Thiamine Hcl 100 Mg Tablet) 100 mg PO DAILY [facility] Last Admin: 11/11/22 08:14 Dose: 100 mg Trazodone HCl (Trazodone Hcl 50 Mg Tablet) 50 mg PO BEDTIME MRX1 PRN PRN Reason: Insomnia Allergies Allergies Allergy/AdvReac Type Severity Reaction Status Date / Time codeine [Codeine] Allergy Unknown N/A Verified 10/27/22 16:36 Assessment & Plan Assessment & Plan (1) Polysubstance abuse: Status: Acute Code(s): F19.10 - Other psychoactive substance abuse, uncomplicated (2) PTSD (post-traumatic stress disorder): Status: Acute Code(s): F43.10 - Post-traumatic stress disorder, unspecified (3) Schizoaffective disorder: Status: Acute Code(s): F25.9 - Schizoaffective disorder, unspecified (4) Suicidal ideation: Status: Acute Code(s): R45.851 - Suicidal ideations (5) Alcohol use disorder: Status: Acute Code(s): F10.90 - Alcohol use, unspecified, uncomplicated (6) Opioid use disorder: Status: Acute Code(s): F11.99 - Opioid use, unspecified with unspecified opioid-induced disorder Plan 41 yo male, history of schizoaffective disorder, PTSD, polysubstance use disorder, opiate use disorder, alcohol use disorder presents after a recent discharge with [facility] with plan, auditory perceptual alterations and having relapsed. Plan: Olanzapine 10 mg bid Lorazepam 0.5 mg bid x 2 days for withdrawal sx. MVI i tab daily Pt asks to be considered for [facility] admission. Continue remainder of regime and will adjust as needed. 11/08/22: Depakote ER 500 mg HS Discontinue Lorazepam Klonopin 1 mg bid Continue remainder of regime 11/09/22 Breakthrough sx Add Klonopin 1 mg daily prn Increase Depakote ER to 1000 mg HS Increase Olanzapine to 20 mg bid 11/11/22: Continue current regime. Patient educated on: medication risk/benefits and therapeutic strategies Informed Consent: understands and further education needed Reason for continued inpatient stay Substantial Risk for: rapid decompensation Time Spent With Patient Time: Total time managing care of this patient today ____ minutes.
[2022-11-11] MEDS: QUEtiapine Fumarate 200 MG TABLET PO (18:38)
[2022-11-11 20:45] VITALS: BP 128/74; PULSE 111; TEMP 36.6; O2SAT 96
[2022-11-11] MEDS: Melatonin 3 MG TABLET PO (20:59)
[2022-11-11] MEDS: Divalproex Sodium ER 500 MG TAB.ER.24H PO (20:59)
[2022-11-12] MEDS: QUEtiapine Fumarate 200 MG TABLET PO ×2 (04:01→18:59)
[2022-11-12] MEDS: OLANZapine 5 MG TABLET PO ×3 (04:01→18:59)
[2022-11-12 08:16] VITALS: BP 136/92; PULSE 104; RESP 16; TEMP 36.6; O2SAT 97
[2022-11-12] MEDS: buPROPion HCl XL 300 MG TAB.ER.24H PO (08:36)
[2022-11-12] MEDS: Gabapentin 400 MG CAPSULE 800 MG PO ×3 (08:36→19:50)
[2022-11-12] MEDS: Cyanocobalamin (Vitamin B-12) 100 MCG TABLET PO (08:36)
[2022-11-12] MEDS: Nicotine 21 MG PATCH.TD24 TRANSDERMA (08:36)
[2022-11-12] MEDS: cloNIDine HCL 0.1 MG TABLET PO ×3 (08:37→19:51)
[2022-11-12] MEDS: OLANZapine 10 MG TABLET 20 MG PO ×2 (08:37→19:48)
[2022-11-12] MEDS: Folic Acid 1 MG TABLET PO (08:37)
[2022-11-12] MEDS: Thiamine HCL 100 MG TABLET PO (08:37)
[2022-11-12] MEDS: Multivitamin TABLET 1 TAB PO (08:37)
[2022-11-12] MEDS: clonazePAM 1 MG TABLET PO ×3 (08:40→19:48)
--- NOTE | 2022-11-12 13:04 | PC.NURSE ---
pt received lunch and began to eat salad when he reported he noticed shrimp on the salad which he states he is allergic too. No symptoms of anaphylaxis reported or noted. Provider [facility] notified and epipen ordered for precaution. juan jose continue to monitor.
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
[2022-11-12 19:45] VITALS: BP 122/76; PULSE 121; TEMP 36.3
[2022-11-12] MEDS: Divalproex Sodium ER 500 MG TAB.ER.24H PO (19:50)
[2022-11-12] MEDS: Melatonin 3 MG TABLET PO (19:52)
[2022-11-12] MEDS: traZODone HCL 50 MG TABLET PO (21:31)
[2022-11-12] MEDS: Benztropine Mesylate 1 MG TABLET PO (22:28)
[2022-11-12] MEDS: LORazepam 1 MG TABLET 2 MG PO (22:29)
[2022-11-12] MEDS: Divalproex Sodium 250 MG TABLET.DR PO (22:29)
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
--- NOTE | 2022-11-13 | ECG_ITS ---
Test Reason : pt reports flutter Blood Pressure : / mmHG Vent. Rate : 103 BPM Atrial Rate : 103 BPM P-R Int : 162 ms QRS Dur : 078 ms QT Int : 340 ms P-R-T Axes : 033 025 021 degrees QTc Int : 445 ms Sinus tachycardia Otherwise normal ECG When compared with ECG of 06-NOV-2022 13:51, Nonspecific T wave abnormality no longer evident in Anterior leads Referred By: Katerine Hernandez Electronically Signed By:TEOFILO WARREN
[2022-11-13] MEDS: cloNIDine HCL 0.1 MG TABLET PO ×5 (01:28→20:41)
[2022-11-13] MEDS: Acetaminophen 325 MG TABLET 650 MG PO ×2 (01:28→21:28)
[2022-11-13] MEDS: HaloperidoL 5 MG TABLET PO ×3 (01:28→21:29)
[2022-11-13] MEDS: diphenhydrAMINE HCL 25 MG CAPSULE 50 MG PO ×2 (01:29→23:50)
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
[2022-11-13] MEDS: QUEtiapine Fumarate 200 MG TABLET PO ×3 (05:47→17:14)
[2022-11-13] MEDS: OLANZapine 5 MG TABLET PO ×4 (05:48→21:46)
[2022-11-13 08:00] VITALS: BP 136/92; PULSE 107; RESP 16; TEMP 36.6; O2SAT 98
[2022-11-13] MEDS: Cyanocobalamin (Vitamin B-12) 100 MCG TABLET PO (08:32)
[2022-11-13] MEDS: buPROPion HCl XL 300 MG TAB.ER.24H PO (08:32)
[2022-11-13] MEDS: Multivitamin TABLET 1 TAB PO (08:32)
[2022-11-13] MEDS: Gabapentin 400 MG CAPSULE 800 MG PO ×3 (08:32→20:40)
[2022-11-13] MEDS: OLANZapine 10 MG TABLET 20 MG PO (08:33)
[2022-11-13] MEDS: clonazePAM 1 MG TABLET PO ×4 (08:33→20:41)
[2022-11-13] MEDS: Nicotine 21 MG PATCH.TD24 TRANSDERMA (08:33)
[2022-11-13] MEDS: Folic Acid 1 MG TABLET PO (08:33)
[2022-11-13] MEDS: Thiamine HCL 100 MG TABLET PO (08:33)
[2022-11-13 11:55] LABS: MANUAL DIFF FLAG NO
[2022-11-13 12:20] LABS: Basophils Percent Auto 0.3 % (0-2); Eosinophils Absolute Auto 0.2 X10*3/uL (0.0-0.4); Eosinophils Percent Auto 2.6 % (0-4); Hemoglobin 14.6 g/dl (14.0-18.0); Imm Gran Abs Auto 0.07 X10*3/uL (0.00-0.03); Imm Gran Pct Auto 1.1 % (0.0-0.4); Lymphocytes Absolute Auto 2.3 X10*3/uL (1.2-4.9); Lymphocytes Percent Auto 36.7 % (20-40); Mean Corpuscular HGB Conc 33.2 g/dl (31.0-36.0); Mean Corpuscular Hemoglobin 30.2 pg (27.0-33.0); Mean Corpuscular Volume 91.1 fL (80.0-98.0); Mean Platelet Volume 10.7 fL (9.4-12.4); Monocytes Absolute Auto 0.4 X10*3/uL (0.1-1.2); Monocytes Percent Auto 6.5 % (2-11); Neutrophils Absolute Auto 3.3 x10*3/uL (2.0-8.3); Neutrophils Percent Auto 52.8 % (45-73); Platelet Count 244 X10*3/uL (160-400); Red Blood Count 4.83 X10*6/uL (4.60-5.80); Red Cell Distribution Width 13.1 % (11.0-16.0); White Blood Count 6.2 X10*3/uL (4.8-10.8)
[2022-11-13 12:30] VITALS: BP 141/91; PULSE 89
[2022-11-13 12:56] LABS: Alanine Aminotransferase 17 U/L (0-40); Albumin Level 4.2 g/dL (3.5-5.0); Alkaline Phosphatase 75 U/L (39-117); Anion Gap 15 (12-20); Aspartate Amino Transferase 9 U/L (5-37); Bilirubin Total 0.3 mg/dL (0.0-1.0); Blood Urea Nitrogen 11 mg/dL (9-16); Calcium 9.8 mg/dL (8.4-10.2); Carbon Dioxide 24 mmol/L (22-29); Chloride 107 mmol/L (96-108); Estimated Glomerular Filt Rate > 60; Glucose Random 107 mg/dL (60-115); Potassium 4.6 mmol/L (3.3-5.1); Sodium 141 mmol/L (135-145); Total Protein 7.6 g/dL (6.5-8.0)
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
[2022-11-13] MEDS: OLANZapine 10 MG TABLET 30 MG PO (17:20)
[2022-11-13] MEDS: Haloperidol Lactate Oral Conc 10 MG/5 ML ORAL.CONC 5 MG PO (17:45)
[2022-11-13] MEDS: lamoTRIgine 25 MG TABLET PO (20:41)
[2022-11-13] MEDS: Melatonin 3 MG TABLET PO (20:41)
[2022-11-13 20:59] VITALS: BP 126/81; PULSE 110; TEMP 36.2; O2SAT 95
[2022-11-13] MEDS: LORazepam 2 MG/ML VIAL IM (22:04)
--- NOTE | 2022-11-13 22:05 | PC.NURSE ---
AGITATION-EXHIBITS POOR COPING AND ABILITY TO HANDLE DISTRESS TOLERANCE. ACTIVELY SEEKING OUT HELP FROM STAFF FOR MEDICATIONS. HAS USED PRN MEDICATIONS PO WITH LIMITED RESPONSE. IS ACTIVELY REQUESTING IM MEDICATIONS. ''I NEED HELP''
[2022-11-13] MEDS: chlorproMAZINE HCl 25 MG/ML AMPUL 100 MG IM (22:13)
--- NOTE | 2022-11-13 22:21 | PC.NURSE ---
pt only took thoarzine 50mg instead of the ordered 100mg. pt refused the other 50mg and went to sleep.
[2022-11-13 23:34] VITALS: BP 164/82; PULSE 107; O2SAT 96
--- NOTE | 2022-11-14 00:47 | PC.NURSE ---
restlessness-prescriber notified of ppatient c/o ''being restless in my arms and my legs feel like they are jumping'' benadryl 50 mg po administered. patient fell asleep 1/2 hour after administration.
--- NOTE | 2022-11-14 00:49 | PC.NURSE ---
patient was a transfer from on 11/13.
[2022-11-14] MEDS: QUEtiapine Fumarate 200 MG TABLET PO (03:39)
[2022-11-14 06:58] VITALS: BP 140/95; PULSE 108; TEMP 36.4; O2SAT 96
--- NOTE | 2022-11-14 07:03 | PC.NURSE ---
on rising reports no restlessness
[2022-11-14 08:12] VITALS: BP 128/76; PULSE 109; RESP 20; TEMP 36.6; O2SAT 97
[2022-11-14] MEDS: Cyanocobalamin (Vitamin B-12) 100 MCG TABLET PO (08:13)
[2022-11-14] MEDS: Nicotine 21 MG PATCH.TD24 TRANSDERMA (08:13)
[2022-11-14] MEDS: HaloperidoL 5 MG TABLET PO ×2 (08:13→12:50)
[2022-11-14] MEDS: cloNIDine HCL 0.1 MG TABLET PO ×2 (08:13→12:53)
[2022-11-14] MEDS: Folic Acid 1 MG TABLET PO (08:13)
[2022-11-14] MEDS: clonazePAM 1 MG TABLET PO (08:13)
[2022-11-14] MEDS: Gabapentin 400 MG CAPSULE 800 MG PO (08:13)
[2022-11-14] MEDS: Thiamine HCL 100 MG TABLET PO (08:13)
[2022-11-14] MEDS: Multivitamin TABLET 1 TAB PO (08:14)
[2022-11-14] MEDS: OLANZapine 5 MG TABLET PO (12:50)
[2022-11-14] MEDS: clonazePAM 0.5 MG TABLET PO (13:13)
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
== END 2022-11-14 14:17 | disposition home or self-care (01) | DRG 750 ==
LOC: HO.ED 09:45 → HO.PM5 11-06 18:14 → HO.PADLT16 11-13 18:38
PROVIDERS: Physician Assistant; Admitting Provider Psychiatry & Neurology Psychiatry; Emergency Provider Student in an Organized Health Care Education/Training Program; PCP Physician Assistant; Visit Provider Clinical Nurse Specialist Psychiatric/Mental Health, Adult
DX: F25.9 Schizoaffective disorder, unspecified (principal); R45.851 Suicidal ideations; Z59.02 Unsheltered homelessness; F11.10 Opioid abuse, uncomplicated; F17.210 Nicotine dependence, cigarettes, uncomplicated; F10.10 Alcohol abuse, uncomplicated; F19.10 Other psychoactive substance abuse, uncomplicated; F43.10 Post-traumatic stress disorder, unspecified; Z20.822 Contact with and (suspected) exposure to COVID-19; Z71.6 Tobacco abuse counseling; Z79.899 Other long term (current) drug therapy
CPT/HCPCS: 0353U; 36415; 71046; 73130; 80048; 80053; 80076; 80307; 81001; 83735; 85025; 86704; 86706; 86709; 86780; 86803; 87086; 87340; 87389; 87635; 93005; 99285; J2060; J3230; S9485